=== PATIENT | female | born 1990 | race Caucasian/White ===

== ENCOUNTER 2019-05-23 14:39 | Outpatient (CLI) | payer MEDICAID, SELFPAY ==
--- NOTE | 2019-05-23 | XR_ITS ---
WS: [id number] FACIAL BONES TECHNIQUE: 3 views of the facial bones CLINICAL INFORMATION: JAW PAIN COMPARISON: None. FINDINGS: Normal visualized paranasal sinuses appear well aerated. Normal orbital rims. Mandible appears normal . No visualized fractures. XR/XR facial bones <3V [id number] IMPRESSION: Normal visualized mandible
== END 2019-05-24 11:37 | disposition home or self-care (01) ==
PROVIDERS: Family Provider Family Medicine; PCP Family Medicine; Visit Provider Nurse Practitioner Family
DX: R68.84 Jaw pain (principal)

== ENCOUNTER 2019-06-17 03:21 | Emergency (ER) | payer MEDICAID, SELFPAY ==
--- NOTE | 2019-06-17 03:31 | ED_ITS ---
Entered by Kaya Dowling, acting as scribe for Doug Aivles DO Jun 17, 2019 03:21 HPI - SOB/Dyspnea General: Chief Complaint: Shortness of Breath/Dyspnea Stated Complaint: SOB, MUSCLES TWITCHING Time Seen by Provider: 06/17/19 03:35 Source: patient Mode of arrival: ambulatory Limitations: no limitations History of Present Illness: HPI Narrative: 29 yo f came to the er pov for shortness of breath and twitching. Onset was tonight. Pt states that her feet and her legs started twitching last night. Pt states that she has felt sob the last few days. Pt states that the twitches in her abd as well. MD elicited complaint: shortness of breath Onset (ago): day(s) Timing: intermittent Severity: mild Exacerbating factors: nothing Relieving factors: nothing Associated symptoms: Reports dizziness and orthopnea; Deny abdominal pain, chest pain, fever(s), nausea, palpitations or vomiting Treatment prior to arrival: none Related Data: Home oxygen amount: none Review of Systems Const: Denies: fever Eyes: Denies: change in vision or blurry vision ENMT: Denies: painful swallowing, swelling of lips/tongue, bleeding gums, dental pain, Change in hearing, nose bleeds, post nasal drip or facial/sinus pain Card: Reports: shortness of breath when lying down; Denies: chest pain or palpitations Resp: Reports: shortness of breath; Denies: productive cough, non-productive cough or wheezing GI: Denies: abdominal pain, nausea or vomiting : Denies: painful urination, urinary frequency, urinary urgency or blood in urine Musc: Denies: neck pain or back pain Skin/Breast: Denies: rash, itching or redness Neuro: Reports: dizziness Psych: Denies: anxiety PFSH ED PFSH: Statuses (acute, chronic, etc) shown below reflect problem list status as previously entered and may not be historically accurate Social History Smoking and tobacco status: former smoker Physical Exam Const: GENERAL APPEARANCE: well developed ORIENTATION/CONSCIOUSNESS: Yes oriented to person, Yes oriented to place and Yes oriented to time HENMT: COMMON NORMALS: normocephalic, external ears normal and external nose normal HEAD & SCALP: normocephalic; no scalp tenderness FACE & SINUS: normal facial exam NOSE: external nose normal and no nasal discharge EXTERNAL EAR: Yes external ears normal MOUTH: tongue normal TEETH & GINGIVA: no abnormal tooth and associated gingiva THROAT: posterior oropharynx normal; no peritonsillar mass Eye: COMMON NORMALS: PERRL, EOMs intact bilaterally and conjunctivae normal EYELID: eyelids normal CONJUNCTIVA: Yes conjunctivae normal PUPIL: Yes PERRL Neck/C-Spine: COMMON NORMALS: full ROM GENERAL: No tracheal deviation Chest: COMMONS NORMALS: inspection of chest normal CHEST: No tenderness Resp: COMMON NORMALS: clear to auscultation bilaterally EFFORT & INSPECTIO N: No tachypneic, No respiratory distress, No retractions, No uses accessory muscles and No tracheal deviation AUSCULTATION: clear to auscultation bilaterally, no rhonchi, no wheezes and lung sounds not diminished Cardio: COMMON NORMALS: regular rate and regular rhythm RATE: regular rate RHYTHM: regular rhythm HEART SOUNDS: no murmurs PERIPHERAL PULSES: radial pulses present GI: COMMON NORMALS: soft to palpation INSPECTION: No abdominal distension AUSCULTATION: No hyperactive bowel sounds and No hypoactive bowel sounds PALPATION: Yes soft, No tender, No guarding and No rigid PERCUSSION: no dullness to percussion and no tympanic to percussion Neuro: SENSORIUM/ORIENTATION: Yes oriented to person, Yes oriented to place and Yes oriented to time Psych: COMMON NORMALS: mental status grossly normal Skin: COMMON NORMALS: no rashes or lesions noted GENERAL SKIN EXAM: no rashes or lesions noted Course ED course: 29-year-old female complaining of muscle twitches that worsen does hurt shortness of breath worsen. She is breathing normally. Saturations have been 99 to 100%. She is non-tachycardic. Her laboratory work-up is benign. Suspect hyperventilation with rapid decrease in bicarbonate level to match her respiratory alkalosis. Vital Signs: Vital signs: Vital Signs Temperature 98.1 F 06/17/19 06:16 Pulse Rate 73 06/17/19 06:16 Respiratory Rate 16 06/17/19 06:16 Blood Pressure 122/68 06/17/19 06:16 Pulse Oximetry 97 06/17/19 06:16 MDM - SOB/Dyspnea Lab Data: Labs: Lab Results 06/17/19 06/17/19 06/17/19 Range/Units 05:15 05:15 05:15 WBC 5.6 (4.0-10.0) 10^3/ uL RBC 4.43 (4.1-5.3) 10^6/u L Hgb 13.4 (11.5-15.3) g/dL Hct 39.6 (37.0-47.0) % MCV 89.4 (81-99) fL MCH 30.2 (28.0-34.0) pg MCHC 33.8 (30.0-36.0) g/dL RDW 11.9 L (12.1-15.1) % Plt Count 235 (130-400) 10^3/c mm MPV 10.6 H (7.4-10.4) fL Neut % (Auto) 54.3 % Lymph % (Auto) 32.7 % [place] % (Auto) 8.4 % Eos % (Auto) 3.8 % Baso % (Auto) 0.4 % Neut # (Auto) 3.0 (1.8-7.7) 10^3/u L Lymph # (Auto) 1.8 (0.8-4.8) 10^3/u L [place] # (Auto) 0.5 (0.2-0.9) 10^3/u L Eos # (Auto) 0.2 (0.0-0.8) 10^3/u L Baso # (Auto) 0.0 (0.0-0.1) 10^3/u L Nucleated RBC % (a uto) 0 % Nucleated RBCs # 0.0 /100WBC Sodium 138 (136-145) mmol/L Potassium 3.8 (3.5-5.1) mmol/L Chloride 101 (98-107) mmol/L Carbon Dioxide 28 (22-29) mmol/L Anion Gap 12.8 (5-19) BUN 7 (6-20) mg/dL Creatinine 0.6 (0.5-0.9) mg/dL GFR Calculation 117.4 (90-130) mL/min Glucose 85 (74-109) mg/dL Calculated Osmolal ity 281 L (285-295) mOsm/k g Calcium 10.0 (8.5-10.5) mg/dL HCG, Qual Negative (Negative) Discharge Plan Discharge Patient Disposition: Home, Self-Care Clinical Impression: Hyperventilation syndrome Condition: Stable Discharge Orders: Discharge Order (Routine); Ordered 06/17/19 Ordered By: Doug Aviles Referrals: Lyn Guzman DO [Primary Care Provider] - 1-3 days Discharge Diet: Usual diet Discharge Activity: Increase activity as tolerated Patient Instructions: Hyperventilation (ED) Activity Restrictions/Additional Instructions: Return for chest discomfort, worsening shortness of breath, fever greater than 100, other concerning symptoms. Coding Level of Care Code ED Fuel House Attendant for g Fwd The documentation recorded by the Nitesh price Stephanie Lyn, accurately reflects the service I personally performed and the decisions made by Stefan graff Jeremy John, DO Jun 17, 2019 03:21
[2019-06-17 03:33] VITALS: BP 137/88; PULSE 86; RESP 16; TEMP 37.2; O2SAT 100; BMI 19.2
[2019-06-17 03:36] VITALS: BP 137/88; PULSE 64; RESP 16; O2SAT 97
--- NOTE | 2019-06-17 03:43 | XR_ITS ---
WS: [id number] CHEST XRAY TECHNIQUE: Portable chest. CLINICAL INFORMATION: sob COMPARISON: FINDINGS: Heart: Normal cardiac silhouette. Lungs: Lungs are clear. No consolidation or pleural effusion. Bones: Normal visualized bony structures. XR/XR chest 1V portable [id number] IMPRESSION: Normal chest
--- NOTE | 2019-06-17 03:57 | PC.NURSE ---
Introduced self to patient and initiated vital signs. Pt is A&O x 4 and agreeable. Pt states that the reason for the ER visit today is due to some shortness of breath (started yesterday) and leg twitching which presented a few months ago. = Reassured patient of needs and will continue to monitor. Awaiting provider at bedside.
[2019-06-17 05:41] LABS: Basophils % 0.4 %; Eosinophils # 0.2 10^3/uL (0.0-0.8); Eosinophils % 3.8 %; Hematocrit 39.6 % (37.0-47.0); Hemoglobin 13.4 g/dL (11.5-15.3); Lymphocytes # 1.8 10^3/uL (0.8-4.8); Lymphocytes % 32.7 %; Mean Corpuscular HGB Conc 33.8 g/dL (30.0-36.0); Mean Corpuscular Hemoglobin 30.2 pg (28.0-34.0); Mean Corpuscular Volume 89.4 fL (81-99); Mean Platelet Volume 10.6 fL (7.4-10.4); Monocytes # 0.5 10^3/uL (0.2-0.9); Monocytes % 8.4 %; Neutrophils % 54.3 %; Nucleated Red Blood Cells % 0 %; Platelet Count 235 10^3/cmm (130-400); Red Blood Count 4.43 10^6/uL (4.1-5.3); Red Cell Distribution Width 11.9 % (12.1-15.1); White Blood Count 5.6 10^3/uL (4.0-10.0)
[2019-06-17 05:52] LABS: HCG, Serum Qual Negative (Negative)
[2019-06-17 05:54] LABS: Anion Gap 12.8 (5-19); Blood Urea Nitrogen 7 mg/dL (6-20); Carbon Dioxide 28 mmol/L (22-29); Chloride 101 mmol/L (98-107); Glomerular Filtration Rate 117.4 mL/min (90-130); Glucose 85 mg/dL (74-109); Osmolality Calculated 281 mOsm/kg (285-295); Potassium 3.8 mmol/L (3.5-5.1); Sodium 138 mmol/L (136-145)
[2019-06-17] MEDS: LORazepam 1 mg Tablet PO (06:10)
[2019-06-17 06:16] VITALS: BP 122/68; PULSE 73; RESP 16; TEMP 36.7; O2SAT 97
== END 2019-06-17 06:44 | disposition home or self-care (01) ==
PROVIDERS: Emergency Provider Emergency Medicine; Family Provider Family Medicine; PCP Family Medicine
DX: F45.8 Other somatoform disorders (principal); Z87.891 Personal history of nicotine dependence
CPT/HCPCS: 71045; 80048; 84703; 85025; 99281

== ENCOUNTER 2019-09-13 16:08 | Outpatient (CLI) | payer MEDICAID, SELFPAY ==
--- NOTE | 2019-09-13 | XR_ITS ---
WS: [id number] HIP RIGHT TECHNIQUE: 1 view of the right hip CLINICAL INFORMATION: ACUTE RT HIP PAIN COMPARISON: None. FINDINGS: Mild joint space narrowing right hip. Mild acetabular spurring. Right femoral neck is normal in appea justin. Normal greater and lesser trochanter. No evidence of acute fracture dislocation. Pelvic phlebo liths. XR/XR hip RT 1V wo/w pel [id number] IMPRESSION: Mild joint space narrowing. No acute fractures. Mild acetabular spurring.
--- NOTE | 2019-09-13 16:22 | XR_ITS ---
WS: [id number] CERVICAL SPINE TECHNIQUE: 3 views of the cervical spine CLINICAL INFORMATION: CHRONIC NECK PAIN COMPARISON: None. FINDINGS: Mild cervical curve convex left. Normal C1-C2 articulation. Normal prevertebral soft tissues. Disc sp osorio heights and vertebral body heights are well-maintained. Normal dens. XR/XR cervical spine 3V* [id number] IMPRESSION: Mild cervical curve convex left. Cervical spine otherwise unremarkable.
--- NOTE | 2019-09-13 16:22 | XR_ITS ---
WS: [id number] LUMBAR SPINE TECHNIQUE: 3 views of the lumbar spine CLINICAL INFORMATION: CHRONIC BILATERAL LOW BACK PAIN W/O SCIATICA COMPARISON: None. FINDINGS: Mild to moderate lumbar curve convex left. Five [id number] lumbar vertebral bodies. Disc space heights are well preserved. No compression f ractures. No spondylolisthesis. Visualized sacroiliac joints are normal. Normal visualized soft tissu es. Partially visualized bowel gas pattern is normal. XR/XR lumbar spine 2-3V* [id number] IMPRESSION: 1. Mild to moderate lumbar curve convex left. 2. No acute compression fractures. 3. Disc space heights and vertebral body heights are well-maintained. 4. Mild facet arthropathy lower lumbar spine.
== END 2019-09-13 16:09 | disposition home or self-care (01) ==
LOC: RAD 16:09
PROVIDERS: Family Provider Family Medicine; PCP Family Medicine; Visit Provider Registered Nurse
DX: M54.2 Cervicalgia (principal); M25.551 Pain in right hip; M54.5 Low back pain; G89.29 Other chronic pain; M47.816 Spondylosis without myelopathy or radiculopathy, lumbar region
CPT/HCPCS: 72040; 72100; 73501

== ENCOUNTER 2019-09-15 23:16 | Emergency (ER) | payer MEDICAID, SELFPAY ==
[2019-09-15 23:31] VITALS: BP 124/91; PULSE 99; RESP 16; TEMP 36.9; O2SAT 96; BMI 19.2
--- NOTE | 2019-09-15 23:44 | W.ED.HA ---
HPI - Headache General: Chief Complaint: Headache Stated Complaint: CONTE X 2 MONTHS Time Seen by Provider: 09/15/19 23:42 Source: patient Mode of arrival: ambulatory Limitations: no limitations History of Present Illness: HPI Narrative: 29-year-old female comes in today with complaints of headache that feels like a band around the top of her head. Patient states that for the last 2 months she has had this headache and it just has not seemed to resolve. Patient felt that she could not wait for following up with her primary care at this time due to the pain. Patient does take control routinely. Patient denies any nausea or vomiting with the headache. Patient does have some mild neck discomfort with a headache. Review of Systems General: Reports: 10 or more systems reviewed and unremarkable except in HPI and below Neuro: Reports: headache PFSH ED PFSH: Social History Smoking and tobacco status: former smoker Female Reproductive History: Date of last menstrual period: 09/08/19 Physical Exam Const: COMMON NORMALS: no apparent distress and oriented x3 GENERAL APPEARANCE: cooperative HENMT: COMMON NORMALS: normocephalic, TM's normal bilaterally and external nose normal HEAD & SCALP: normal to inspection and normocephalic NOSE: external nose normal TYMPANIC MEMBRANE: TM's normal bilaterally MOUTH: oral and palatal mucosa normal THROAT: posterior oropharynx normal Eye: GENERAL EYE: normal appearance of both eyes Neck/C-Spine: COMMON NORMALS: full ROM Lymph: LYMPHATIC: no lymphadenopathy noted Chest: COMMONS NORMALS: inspection of chest normal Resp: COMMON NORMALS: normal respiratory effort EFFORT & INSPECTION: Yes able to speak in complete sentences Cardio: COMMON NORMALS: regular rate and regular rhythm RATE: regular rate RHYTHM: regular rhythm GI: COMMON NORMALS: non-tender : COMMON NORMALS: Yes no CVA tenderness BLADDER/KIDNEY EXAM: Yes no CVA tenderness Back/Pelvis: COMMON NORMALS: no CVA tenderness and thoracic and lumbar spine normal to inspection Extremity: COMMON NORMALS: normal to inspection Neuro: COMMON NORMALS: oriented x3 and moves all extremities Psych: COMMON NORMALS: mental status grossly normal and cooperative Skin: COMMON NORMALS: no rashes or lesions noted GENERAL SKIN EXAM: no rashes or lesions noted Course Vital Signs: Vital signs: Vital Signs Temperature 98.4 F 09/15/19 23:31 Pulse Rate 78 09/16/19 00:42 Respiratory Rate 16 09/16/19 00:42 Blood Pressure 146/93 09/16/19 00:42 Pulse Oximetry 95 09/16/19 00:42 MDM - Headache MDM Narrative: Medical decision making narrative: Patient comes in today for persistent headache for last 2 months. Patient reports no chronic history of headaches prior to this episode. Exam notes respirations are even lungs are clear to auscultation. Vital signs are normal. Differential diagnosis includes intracranial process, migraine headaches, tension headaches, sinusitis. Patient was given 2 Tylenol for complaints of pain. Patient had a CT scan done which showed no intracranial masses but did show a frontal sinusitis. Reviewed exam with patient recommended treatment for a sinus infection with doxycycline, Flonase and Mucinex D. Encourage plenty of fluids and follow-up with primary care for persistent symptoms with possible referral to neurology for further evaluation. Patient reports understanding agreed to plan. Discharge Plan Discharge Patient Disposition: Home, Self-Care Clinical Impression: Sinusitis Qualifiers: Sinusitis location: frontal Chronicity: subacute Qualified Code(s): J01.10 - Acute frontal sinusitis, unspecified Headache Qualifiers: Headache type: unspecified Headache chronicity pattern: chronic headache Intractability: not intractable Qualified Code(s): R51 - Headache Condition: Stable Prescriptions: New Flonase Allergy Relief 50 mcg/actuation spray,suspension 1 spray INTRANASAL BID Qty: 15.8 RF: 0 doxycycline hyclate 100 mg capsule 100 mg PO BID 10 Days Qty: 20 RF: 0 Mucinex D 60-600 mg tablet extended release 12 hr 1 tab PO BID PRN (Reason: sinus symptoms) Qty: 20 RF: 0 No Action alprazolam 0.25 mg tablet RF: 0 Discharge Orders: Discharge Order (Routine); Ordered 09/16/19 Ordered By: Jose Raul Sanchez Referrals: Lyn Guzman DO [Primary Care Provider] - Discharge Diet: Usual diet Discharge Activity: Increase activity as tolerated Patient Instructions: Sinusitis (ED) Activity Restrictions/Additional Instructions: Drink plenty of fluids. Take Tylenol and ibuprofen as needed for pain. Use medications as directed. Follow-up with primary care in 1 to 2 weeks for persistent headache. Return to the ER for high fever or worsening symptoms. Coding Level of Care Code ED Multiple Cut Off Saw Operator for Kwame Fwd Exam Comprehensive
--- NOTE | 2019-09-15 23:50 | CTR_ITS ---
PROCEDURE INFORMATION: Exam: CT Head Without Contrast Exam date and time: 09/15/2019 11:53 PM Age: 29 years old Clinical indication: Pain; Headache not specified; Additional info: Persistent headache x 2months TECHNIQUE: Imaging protocol: Computed tomography of the head without contrast. Total DLP: 1440.19 mGy-cm Radiation optimization: All CT scans at this facility use at least one of these dose optimization techniques: automated exposure control; mA and/or kV adjustment per patient size (includes targeted exams where dose is matched to clinical indication); or iterative reconstruction. COMPARISON: No relevant prior studies available. FINDINGS: Brain: No acute intracranial hemorrhage or mass effect. No definite acute infarct by CT. Ventricles: Ventricle size is normal for age. Bones/joints: No definite acute skull fracture. Sinuses: Mild mucosal thickening in the frontal sinuses. Included paranasal sinuses otherwise appear essentially clear. Mastoid air cells: No significant acute finding. CT/CT head wo con* [id number] IMPRESSION: 1. No acute intracranial hemorrhage or mass effect. 2. Paranasal sinus findings as discussed above. 3. Other findings discussed above. Radiation Dose CTDIVOL = (mGy): DLP = 1440.19 (mGy-cm)
--- NOTE | 2019-09-15 23:55 | PC.NURSE ---
Patient states she has had a headache for the last two months that will not go away. Patient states she is supposed to be scheduled for an MRI.
[2019-09-16] MEDS: acetaminophen 500 mg Tablet 1000 MG PO (00:03)
[2019-09-16 00:04] VITALS: BP 129/93; PULSE 100; RESP 16; O2SAT 99
--- NOTE | 2019-09-16 00:34 | PC.NURSE ---
patient to CT
[2019-09-16 00:42] VITALS: BP 146/93; PULSE 78; RESP 16; O2SAT 95
[2019-09-16] MEDS: doxycycline 100 mg Tablet PO (01:13)
[2019-09-16 01:14] VITALS: BP 146/93; PULSE 76; RESP 16; O2SAT 95
== END 2019-09-16 01:16 | disposition home or self-care (01) ==
PROVIDERS: Emergency Provider Nurse Practitioner Family; Family Provider Family Medicine; PCP Family Medicine
DX: R51 Headache (principal); J01.10 Acute frontal sinusitis, unspecified; Z87.891 Personal history of nicotine dependence
CPT/HCPCS: 12345; 70450; 99281; 99283

== ENCOUNTER 2019-11-11 07:52 | Emergency (ER) | payer MEDICAID, SELFPAY ==
[2019-11-11 07:57] VITALS: BP 121/95; PULSE 120; RESP 17; TEMP 36.3; O2SAT 100; BMI 19.0
--- NOTE | 2019-11-11 07:58 | ED_ITS ---
HPI - Chest Pain General: Chief Complaint: Chest Pain Stated Complaint: CP Time Seen by Provider: 11/11/19 07:58 Source: patient Mode of arrival: ambulatory Limitations: no limitations History of Present Illness: HPI narrative: 29-year-old female comes in today for complaints of central chest discomfort starting last night. Patient at first thought it may be due to some acid reflux because belching seemed to help a little. But as the night went on it seemed like nothing she did was improving the discomfort. Patient taking her Protonix this morning and decided that she probably should have this evaluated further due to the persistence of discomfort. Patient reports that she has increased discomfort with deep breath. Patient appears well. Patient appears in mild pain. MD complaint: chest pain Review of Systems General: Reports: 10 or more systems reviewed and unremarkable except in HPI and below Card: Reports: chest pain [facility] ED 2 PFSH: Social History Smoking and tobacco status: former smoker Female Reproductive History: Date of last menstrual period: 09/08/19 Physical Exam Const: COMMON NORMALS: no acute distress and patient oriented x3 GENERAL APPEARANCE: cooperative HENMT: COMMON NORMALS: normocephalic and Normal external nose present HEAD & SCALP: normal to inspection and normocephalic NOSE: Normal external nose present MOUTH: Normal oral and palatal mucosa present THROAT: posterior oropharynx normal Eye: GENERAL EYE: appearance normal, both eyes and all related structures Neck/C-Spine: COMMON NORMALS: full ROM Lymph: LYMPHATIC: no lymphadenopathy noted Chest: COMMONS NORMALS: normal inspection of the chest Resp: COMMON NORMALS: normal respiratory effort EFFORT & INSPECTION: Yes able to speak in complete sentences Cardio: COMMON NORMALS: regular rate and regular rhythm RATE: regular rate RHYTHM: regular rhythm GI: COMMON NORMALS: Soft to palpation PALPATION: Yes Soft to palpation and Yes Tenderness to palpation present (GI) (mid epigastric mild) : COMMON NORMALS: Yes no CVA tenderness BLADDER/KIDNEY EXAM: Yes no CVA tenderness Back/Pelvis: COMMON NORMALS: no CVA tenderness and thoracic and lumbar spine normal to inspection Extremity: COMMON NORMALS: normal to inspection Neuro: COMMON NORMALS: patient oriented x3 and moves all extremities Psych: COMMON NORMALS: mental status grossly normal and cooperative Skin: COMMON NORMALS: no rashes or lesions noted GENERAL SKIN EXAM: no rashes or lesions noted Course Vital Signs: Vital signs: Vital Signs Temperature 97.4 F L 11/11/19 07:57 Pulse Rate 120 H 11/11/19 07:57 Respiratory Rate 17 11/11/19 07:57 Blood Pressure 121/95 11/11/19 07:57 Pulse Oximetry 100 11/11/19 07:57 MDM - Chest Pain MDM Narrative: Medical decision making narrative: Patient came in today for evaluation regarding chest discomfort. Patient reports significant burning and discomfort in the chest last night she thought it was might be her reflux and had taken her Protonix this morning but felt that she might need to have this further evaluated. Exam notes respirations were even lungs were clear to a uscultation. Some mild tenderness was noted in the midepigastrium. Vital signs were normal except for some mild elevation in pulse rate at 120. Differential diagnosis includes ACS, PE, peptic ulcer disease, GERD, gallbladder disease, pancreatitis. Laboratory values noted a normal lipase and liver enzymes, mild elevation white count at 13,000, negative hCG, normal troponin level, negative d-dimer. Chest x-ray was normal. Reviewed exam with patient with recommendations for treatment to continue Protonix and then follow-up with primary care. Patient had relief of pain prior to discharge which may be contributed to her acetaminophen that she was given and/or the Protonix she had taken at home. Patient reported understanding of care plan and need for follow- up. Lab Data: Labs: Lab Results 11/11/19 11/11/19 11/11/19 Range/Units 08:06 08:06 08:06 WBC 13.5 H (4.0-10.0) 10^3/ uL RBC 4.53 (4.1-5.3) 10^6/u L Hgb 14.1 (11.5-15.3) g/dL Hct 42.5 (37.0-47.0) % MCV 93.8 (81-99) fL MCH 31.1 (28.0-34.0) pg MCHC 33.2 (30.0-36.0) g/dL RDW 11.9 L (12.1-15.1) % Plt Count 197 (130-400) 10^3/c mm MPV 10.6 H (7.4-10.4) fL Neut % (Auto) 84.9 % Lymph % (Auto) 11.9 % [place] % (Auto) 1.3 % Eos % (Auto) 1.1 % Baso % (Auto) 0.4 % Neut # (Auto) 11.5 H (1.8-7.7) 10^3/u L Lymph # (Auto) 1.6 (0.8-4.8) 10^3/u L [place] # (Auto) 0.2 (0.2-0.9) 10^3/u L Eos # (Auto) 0.2 (0.0-0.8) 10^3/u L Baso # (Auto) 0.1 (0.0-0.1) 10^3/u L Nucleated RBC % (a uto) 0 % Nucleated RBCs # 0.0 /100WBC D-Dimer <= 0.27 (0-0.59) ug/mIFE U Sodium 141 (136-145) mmol/L Potassium 3.5 (3.5-5.1) mmol/L Chloride 105 (98-107) mmol/L Carbon Dioxide 24 (22-29) mmol/L Anion Gap 15.5 (5-19) BUN 11 (6-20) mg/dL Creatinine 0.6 (0.5-0.9) mg/dL GFR Calculation 117.4 (90-130) mL/min Glucose 108 (65-115) mg/dL Calculated Osmolal ity 289 (285-295) mOsm/k g Calcium 9.2 (8.5-10.5) mg/dL Total Bilirubin 0.5 (0.15-1.2) mg/dL AST 7 (0-32) U/L ALT 8 (0-33) U/L Alkaline Phosphata se 48 (35-105) IU/L Troponin T Baselin e (0-10) ng/L Total Protein 6.7 (6.6-8.7) g/dL Albumin 4.2 (3.5-5.2) g/dL Globulin 2.5 (1.3-4.6) g/dL Lipase 35 (13-60) U/L HCG, Qual (Negative) 11/11/19 11/11/19 Range/Units 08:06 08:06 WBC (4.0-10.0) 10^3/ uL RBC (4.1-5.3) 10^6/u L Hgb (11.5-15.3) g/dL Hct (37.0-47.0) % MCV (81-99) fL MCH (28.0-34.0) pg MCHC (30.0-36.0) g/dL RDW (12.1-15.1) % Plt Count (130-400) 10^3/c mm MPV (7.4-10.4) fL Neut % (Auto) % Lymph % (Auto) % [place] % (Auto) % Eos % (Auto) % Baso % (Auto) % Neut # (Auto) (1.8-7.7) 10^3/u L Lymph # (Auto) (0.8-4.8) 10^3/u L [place] # (Auto) (0.2-0.9) 10^3/u L Eos # (Auto) (0.0-0.8) 10^3/u L Baso # (Auto) (0.0-0.1) 10^3/u L Nucleated RBC % (a uto) % Nucleated RBCs # /100WBC D-Dimer (0-0.59) ug/mIFE U Sodium (136-145) mmol/L Potassium (3.5-5.1) mmol/L Chloride (98-107) mmol/L Carbon Dioxide (22-29) mmol/L Anion Gap (5-19) BUN (6-20) mg/dL Creatinine (0.5-0.9) mg/dL GFR Calculation (90-130) mL/min Glucose (65-115) mg/dL Calculated Osmolal ity (285-295) mOsm/k g Calcium (8.5-10.5) mg/dL Total Bilirubin (0.15-1.2) mg/dL AST (0-32) U/L ALT (0-33) U/L Alkaline Phosphata se (35-105) IU/L Troponin T Baselin e 6 (0-10) ng/L Total Protein (6.6-8.7) g/dL Albumin (3.5-5.2) g/dL Globulin (1.3-4.6) g/dL Lipase (13-60) U/L HCG, Qual Negative (Negative) EKG Data^: EKG 1: Attestation: I personally reviewed and interpreted this EKG as follows: (0820, NSR regular rate 86 bpm, no ectopy or ST elevation.) Discharge Plan Discharge Patient Disposition: Home, Self-Care Clinical Impression: Chest pain due to GERD Condition: Stable Prescriptions: No Action alprazolam 0.25 mg tablet RF: 0 Flonase Allergy Relief 50 mcg/actuation spray,suspension 1 spray INTRANASAL BID Qty: 15.8 RF: 0 Mucinex D 60-600 mg tablet extended release 12 hr 1 tab PO BID PRN (Reason: sinus symptoms) Qty: 20 RF: 0 Discharge Orders: Discharge Order (Routine); Ordered 11/11/19 Ordered By: Jose Raul Sanchez Referrals: Lyn Guzman DO [Primary Care Provider] - Discharge Diet: Usual diet Discharge Activity: Increase activity as tolerated Patient Instructions: Gastroesophageal Reflux Disease (ED) Activity Restrictions/Additional Instructions: Home and rest. Drink plenty of water with medications. Avoid eating 2 hours before bedtime. Continue with Protonix for the next 2 weeks, and then as needed. Follow-up with primary care in 1 week. Return to the ER for worsening symptoms or new concerns. Coding Level of Care Code ED Pharmacy Affairs Assistant for 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
--- NOTE | 2019-11-11 08:02 | XR_ITS ---
WS: [id number] PORTABLE CHEST HISTORY: cp COMPARISON: 06/17/2019 Lungs are clear and well expanded. No pleural effusion or pneumothorax. Cardiac size: Normal. Mediastinum/Aorta: Normal mediastinum. No osseous abnormality seen. XR/XR chest 1V portable [id number] IMPRESSION: Unremarkable portable chest.
--- NOTE | 2019-11-11 08:02 | ECG_ITS ---
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 Measurements Intervals [place] Rate: 86 P: 83 NV: 162 QRS: 84 QRSD: 98 T: 66 QT: 370 QTc: 445 Interpretive Statements SINUS RHYTHM Compared to ECG 12/05/2018 20:56:21 No significant changes Electronically Signed On 11-11-2019 18:29:23 CDT by Karli Mckinney M.D. [id number]
[2019-11-11 08:12] LABS: Basophils # 0.1 10^3/uL (0.0-0.1); Basophils % 0.4 %; Eosinophils # 0.2 10^3/uL (0.0-0.8); Eosinophils % 1.1 %; Hematocrit 42.5 % (37.0-47.0); Hemoglobin 14.1 g/dL (11.5-15.3); Lymphocytes # 1.6 10^3/uL (0.8-4.8); Lymphocytes % 11.9 %; Mean Corpuscular HGB Conc 33.2 g/dL (30.0-36.0); Mean Corpuscular Hemoglobin 31.1 pg (28.0-34.0); Mean Corpuscular Volume 93.8 fL (81-99); Mean Platelet Volume 10.6 fL (7.4-10.4); Monocytes # 0.2 10^3/uL (0.2-0.9); Monocytes % 1.3 %; Neutrophils # 11.5 10^3/uL (1.8-7.7); Neutrophils % 84.9 %; Nucleated Red Blood Cells % 0 %; Platelet Count 197 10^3/cmm (130-400); Red Blood Count 4.53 10^6/uL (4.1-5.3); Red Cell Distribution Width 11.9 % (12.1-15.1); White Blood Count 13.5 10^3/uL (4.0-10.0)
[2019-11-11] MEDS: acetaminophen 500 mg Tablet 1000 MG PO (08:13)
[2019-11-11 08:36] LABS: Alanine Aminotransferase 8 U/L (0-33); Albumin Level 4.2 g/dL (3.5-5.2); Alkaline Phosphatase 48 IU/L (35-105); Anion Gap 15.5 (5-19); Aspartate Amino Transferase 7 U/L (0-32); Blood Urea Nitrogen 11 mg/dL (6-20); Calcium 9.2 mg/dL (8.5-10.5); Carbon Dioxide 24 mmol/L (22-29); Chloride 105 mmol/L (98-107); Globulin 2.5 g/dL (1.3-4.6); Glomerular Filtration Rate 117.4 mL/min (90-130); Glucose 108 mg/dL (65-115); Lipase 35 U/L (13-60); Osmolality Calculated 289 mOsm/kg (285-295); Potassium 3.5 mmol/L (3.5-5.1); Sodium 141 mmol/L (136-145); Total Bilirubin 0.5 mg/dL (0.15-1.2); Total Protein 6.7 g/dL (6.6-8.7)
[2019-11-11 08:37] LABS: HCG, Serum Qual Negative (Negative)
[2019-11-11 08:38] LABS: Troponin(5th) Baseline 6 ng/L (0-10)
[2019-11-11 08:52] LABS: D Dimer <= 0.27 ug/mIFEU (0-0.59)
[2019-11-11 09:05] VITALS: BP 113/65; PULSE 76; RESP 16; O2SAT 99
== END 2019-11-11 09:06 | disposition home or self-care (01) ==
PROVIDERS: Emergency Provider Nurse Practitioner Family; Family Provider Family Medicine; PCP Family Medicine
DX: K21.9 Gastro-esophageal reflux disease without esophagitis (principal); Z87.891 Personal history of nicotine dependence
CPT/HCPCS: 12345; 71045; 80053; 83690; 84484; 84703; 85025; 85378; 93005; 99282; 99283

== ENCOUNTER 2020-01-15 10:28 | Outpatient (CLI) | payer MEDICAID, SELFPAY ==
--- NOTE | 2020-01-15 10:30 | MM_ITS ---
WS: [id number] DIAGNOSTIC BILATERAL DIGITAL MAMMOGRAM WITH CAD RIGHT breast ultrasound, limited HISTORY: Palpable mass RIGHT breast. COMPARISON: None available. TECHNIQUE: Bilateral craniocaudad, mediolateral oblique, and mediolateral views are submitted. Spot c ompression RIGHT CC. Computer aided detection utilized. Breast composition: The breasts are extremely dense, which lowers the sensitivity of mammography. Pal pable marker is placed along the 3:00 axis posteriorly. There is no underlying mass or distortion. LE FT breast is negative. RIGHT breast ultrasound, limited. Ultrasound is directed to the area the palpable abnormality which is 1:00. There is no underlying ma ss. Dense fibroglandular tissue. MM/[place] [id number] IMPRESSION: BI-RADS: 1-Negative FOLLOW UP: Age 39
--- NOTE | 2020-01-15 11:00 | US_ITS ---
WS: [id number] DIAGNOSTIC BILATERAL DIGITAL MAMMOGRAM WITH CAD RIGHT breast ultrasound, limited HISTORY: Palpable mass RIGHT breast. COMPARISON: None available. TECHNIQUE: Bilateral craniocaudad, mediolateral oblique, and mediolateral views are submitted. Spot c ompression RIGHT CC. Computer aided detection utilized. Breast composition: The breasts are extremely dense, which lowers the sensitivity of mammography. Pal pable marker is placed along the 3:00 axis posteriorly. There is no underlying mass or distortion. LE FT breast is negative. RIGHT breast ultrasound, limited. Ultrasound is directed to the area the palpable abnormality which is 1:00. There is no underlying ma ss. Dense fibroglandular tissue. US/US breast RT limited* [id number] IMPRESSION: BI-RADS: 1-Negative FOLLOW UP: Age 39
== END 2020-01-15 10:29 | disposition home or self-care (01) ==
LOC: RADSHAW 10:32
PROVIDERS: PCP Family Medicine; Visit Provider Nurse Practitioner Women's Health
DX: N63.10 Unspecified lump in the right breast, unspecified quadrant (principal)
CPT/HCPCS: 76642; 77066

== ENCOUNTER 2020-02-26 13:35 | Outpatient (CLI) | payer MEDICAID, SELFPAY ==
--- NOTE | 2020-02-26 13:43 | US_ITS ---
WS: [id number] PELVIC ULTRASOUND REASON FOR VISIT: HX OF OVARIAN CYST/RLQ ABD PAIN TECHNIQUE: Grayscale and Doppler transabdominal ultrasound of the pelvis. FINDINGS: No free pelvic fluid. Uterus measures 6.93 cm x 4.9 cm x 4.7 cm. The endometrium was 3 to 4 mm in thickness. The uterus was markedly anteflexed. Uterine echotexture was markedly heterogeneous. Right ovary: measures 3.4 cm x 2.9 cm x 2.5 cm. 2.37 x 2.76 sonolucent mass within the right ovary. G ood through transmission and backwall enhancement. Left ovary: measures 1.7 cm x 1.2 cm x 1.3 cm. No other significant abnormality. US/US pelvic complete* [id number] IMPRESSION: Right ovarian cyst.
== END 2020-02-26 13:36 | disposition home or self-care (01) ==
PROVIDERS: PCP Family Medicine; Visit Provider Registered Nurse
DX: Z87.42 Personal history of other diseases of the female genital tract (principal); R10.31 Right lower quadrant pain; N83.201 Unspecified ovarian cyst, right side
CPT/HCPCS: 76856

== ENCOUNTER → 2020-04-09 17:10 | Outpatient (BNVA) | payer MEDICAID, SELFPAY | PROVIDERS: PCP Family Medicine; Visit Provider Nurse Practitioner Family | DX: Z20.828 Contact with and (suspected) exposure to other viral communicable diseases (principal); J06.9 Acute upper respiratory infection, unspecified | CPT/HCPCS: 87635 ==

== ENCOUNTER → 2020-07-31 10:28 | Outpatient (BNVA) | payer MEDICAID, SELFPAY | PROVIDERS: PCP Family Medicine; Visit Provider Nurse Practitioner Women's Health | DX: R35.0 Frequency of micturition (principal); Z11.3 Encounter for screening for infections with a predominantly sexual mode of transmission; N76.0 Acute vaginitis; N89.8 Other specified noninflammatory disorders of vagina; Z01.419 Encounter for gynecological examination (general) (routine) without abnormal findings; Z30.41 Encounter for surveillance of contraceptive pills | CPT/HCPCS: 81000; 87491; 87591; 87661 ==

== ENCOUNTER → 2020-08-17 14:16 | Outpatient (BNVA) | payer MEDICAID, SELFPAY | PROVIDERS: PCP Family Medicine; Visit Provider Podiatrist Foot & Ankle Surgery | DX: M25.571 Pain in right ankle and joints of right foot (principal); M20.11 Hallux valgus (acquired), right foot | CPT/HCPCS: 73630 ==

== ENCOUNTER 2020-09-10 21:15 | Emergency (ER) | payer MEDICAID, SELFPAY ==
--- NOTE | 2020-09-10 21:21 | XR_ITS ---
WS: [id number] AP and lateral soft tissue neck, 09/10/2020 Clinical Data: foreign body Comparison: Cervical spine, 09/13/2019. Findings: The oral pharynx, pharynx and hypopharynx are normal. The trachea shows no abnormalities. There is no prevertebral soft tissue swelling. The cervical spine is normal. No radiopaque foreign body is noted . The lung apices are unremarkable. XR/XR soft tissue neck [id number] Impression: Negative AP and lateral soft tissue view of the neck.
--- NOTE | 2020-09-10 21:26 | ED_ITS ---
HPI - General Adult General: Chief complaint: Airway/Esophagus Foreign Body Stated complaint: CHOKED Time Seen by Provider: 09/10/20 21:16 Source: patient and EMS Mode of arrival: EMS Limitations: no limitations History of Present Illness: HPI narrative: 30-year-old female states she was eating chips roughly 30 minutes ago. States she had a chicken stuck and she was choking. States she had a coughing episode and felt like she would not go down. States that she felt like she had cough something up and now is able to swallow without any difficulty. He states she does feel like she has a scratch in her esophagus and some pain with swallowing but no difficulty swallowing. Denies any dyspnea. Associated symptoms: Deny chest pain, dyspnea, headache(s), nausea, rash or vomiting Review of Systems Const: Denies: fever(s), chills, body aches or change in appetite Eyes: Denies: blurry vision or eye discomfort ENMT: Reports: throat pain; Denies: dental pain Card: Denies: chest pain Resp: Denies: dyspnea GI: Denies: abdominal pain, nausea, vomiting or diarrhea : Denies: dysuria Musc: Denies: neck pain or back pain Skin/Breast: Denies: rash Neuro: Denies: headache(s) Psych: Denies: depression Michele/Lymph: Denies: easy bruising All/Imm: Denies: urticaria PFSH ED PFSH: Medical History Anxiety with depression Generalized abdominal pain No pertinent past medical history neghx: htn,dm,thyroid,dvt/pe PCP: Dr. Alba Surgical History H/O LEEP x2 at ages 15 and 16 years old Family History Grandmother Breast cancer Maternal grandmother--dx'd in her 60s Ovarian cancer Maternal grandmother---dx age unknown Son Diabetes Type 1 Family history of thyroid problem Mother Hypertension Hyperlipidemia Heart disease Father Family history of thyroid problem Denies family history of Colon cancer Uterine cancer Stroke Female Reproductive History: Date of last menstrual period: 09/08/19 Physical Exam Const: COMMON NORMALS: no acute distress, patient oriented x3 and healthy appearing HENMT: COMMON NORMALS: normocephalic and atraumatic HEAD & SCALP: normoce phalic and atraumatic Eye: COMMON NORMALS: Equal, round and reactive pupils present and EOMs intact bilaterally PUPIL: Yes Equal, round and reactive pupils present Neck/C-Spine: COMMON NORMALS: full ROM and supple Chest: COMMONS NORMALS: normal inspection of the chest and normal palpation of entire chest wall Resp: COMMON NORMALS: normal respiratory effort, No retractions, No use of accessory muscles and clear to auscultation bilaterally AUSCULTATION: clear to auscultation bilaterally Cardio: COMMON NORMALS: regular rate, regular rhythm and No murmurs present (Cardio) RATE: regular rate RHYTHM: regular rhythm GI: COMMON NORMALS: Normal to inspection, nondistended, normoactive bowel sounds present, Soft to palpation, non-tender and no masses PALPATION: Yes Soft to palpation Extremity: COMMON NORMALS: normal to inspection and full ROM Neuro: COMMON NORMALS: patient oriented x3, moves all extremities and no focal motor deficits Psych: COMMON NORMALS: mental status grossly normal, Normal thought process present and cooperative THOUGHT PROCESS: Normal thought process present Skin: COMMON NORMALS: no rashes or lesions noted and no wounds GENERAL SKIN EXAM: no rashes or lesions noted MDM - General Adult MDM Narrative: Medical decision making narrative: Patient presents here with foreign body in esophagus. This is since dislodged. She does have some slight pain likely from her esophagus being scratched by a chip. Patient is well- appearing here and able to swallow and has no shortness of breath. She has no signs of aspiration. She is stable for discharge and return if worsening. Imaging Data^: X-ray soft tissue neck: Attestation: I personally reviewed and interpreted this imaging study as follows: My impression: No acute normality Discharge Plan Discharge Patient Disposition: Home Clinical Impression: Choking episode Condition: Stable Prescriptions: No Action pantoprazole [Protonix] 20 mg tablet,delayed release (DR/EC) 20 mg PO DAILY RF: 0 multivitamin Tablet 1 tab PO DAILY RF: 0 norgestimate-ethinyl estradiol [Ortho Tri-Cyclen (28)] 0.18/0.215/0.25 mg-35 mcg (28) tablet 1 tab PO DAILY Qty: 84 RF: 3 alprazolam 0.25 mg tablet RF: 0 Discharge Orders: Discharge ED (Routine); Ordered 09/10/20 Ordered By: Darnell Oliva Referrals: Lyn Guzman DO [Primary Care Provider] - 1-3 days Discharge Diet: Advance as tolerated Discharge Activity: Resume usual activity Patient Instructions: Choking Coding Level of Care Code ED 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
[2020-09-10 21:40] VITALS: BP 137/84; PULSE 104; RESP 15; TEMP 36.7; O2SAT 100; BMI 19.2
[2020-09-10 21:55] VITALS: BP 137/84; PULSE 102; RESP 15; TEMP 36.7; O2SAT 97
== END 2020-09-10 21:57 | disposition home or self-care (01) ==
LOC: ER 21:40
PROVIDERS: Emergency Provider Emergency Medicine; PCP Family Medicine
DX: T17.928A Food in respiratory tract, part unspecified causing other injury, initial encounter (principal); X58.XXXA Exposure to other specified factors, initial encounter
CPT/HCPCS: 70360; 99282

== ENCOUNTER → 2020-11-30 14:27 | Outpatient (BNVA) | payer OTHER, MEDICAID, SELFPAY | PROVIDERS: PCP Family Medicine; Visit Provider Psychiatry & Neurology Psychiatry | DX: F33.1 Major depressive disorder, recurrent, moderate (principal); F41.1 Generalized anxiety disorder; F43.9 Reaction to severe stress, unspecified | CPT/HCPCS: 99204 ==

== ENCOUNTER → 2020-12-11 14:45 | Outpatient (BNVA) | payer OTHER, SELFPAY | PROVIDERS: PCP Family Medicine; Visit Provider Counselor Professional | DX: F43.0 Acute stress reaction (principal); F41.1 Generalized anxiety disorder; F41.0 Panic disorder [episodic paroxysmal anxiety]; Z63.0 Problems in relationship with spouse or partner | CPT/HCPCS: 90834 ==

== ENCOUNTER → 2021-02-09 09:17 | Outpatient (BNVA) | payer MEDICAID, SELFPAY | PROVIDERS: PCP Family Medicine; Visit Provider Nurse Practitioner Women's Health | DX: Z20.2 Contact with and (suspected) exposure to infections with a predominantly sexual mode of transmission (principal) | CPT/HCPCS: 86592; 86803; 87340; 87491; 87591; 87661; 87806 ==

== ENCOUNTER → 2021-02-22 14:59 | Outpatient (BNVA) | payer MEDICAID, SELFPAY | PROVIDERS: PCP Family Medicine; Visit Provider Nurse Practitioner Women's Health | DX: Z32.01 Encounter for pregnancy test, result positive (principal) | CPT/HCPCS: 84702 ==

== ENCOUNTER → 2021-03-08 17:59 | Outpatient (BNVA) | payer MEDICAID, SELFPAY | PROVIDERS: PCP Family Medicine; Visit Provider Registered Nurse Neonatal Intensive Care | DX: R10.9 Unspecified abdominal pain (principal) | CPT/HCPCS: 81000; 81025; 87086; 87491; 87591; 87661 ==

== ENCOUNTER 2021-05-17 02:32 | Emergency (ER) | payer MEDICAID, SELFPAY ==
[2021-05-17 02:40] VITALS: BP 153/79; PULSE 100; RESP 16; TEMP 36.6; O2SAT 99; BMI 19.2
[2021-05-17 04:43] VITALS: BP 149/96; PULSE 79; RESP 16; O2SAT 98
--- NOTE | 2021-05-17 05:32 | CTR_ITS ---
PROCEDURE INFORMATION: Exam: CT Head Without Contrast Exam date and time: 05/17/2021 5:32 AM Age: 31 years old Clinical indication: Visual disturbance; Additional info: Vision change left eye, ptosis left TECHNIQUE: Imaging protocol: Computed tomography of the head without contrast. Radiation optimization: All CT scans at this facility use at least one of these dose optimization techniques: automated exposure control; mA and/or kV adjustment per patient size (includes targeted exams where dose is matched to clinical indication); or iterative reconstruction. COMPARISON: CT head wo con* [id number] 09/16/2019 12:32 AM RADIATION DOSE METRICS: Total DLP (mGy-cm): 737.22 FINDINGS: Brain: Normal. No hemorrhage. Unremarkable white matter. No mass effect. Cerebral ventricles: No ventriculomegaly. Paranasal sinuses: Visualized sinuses are unremarkable. No fluid levels. Mastoid air cells: Visualized mastoid air cells are well aerated. Bones/joints: Unremarkable. No acute fracture. Soft tissues: Unremarkable. CT/CT head wo con* [id number] IMPRESSION: No acute intracranial abnormality.
[2021-05-17 05:47] LABS: Basophils # 0.1 10^3/uL (0.0-0.1); Basophils % 0.5 %; Eosinophils # 0.5 10^3/uL (0.0-0.8); Eosinophils % 3.6 %; Hematocrit 41.5 % (37.0-47.0); Hemoglobin 13.8 g/dL (11.5-15.3); Lymphocytes # 2.4 10^3/uL (0.8-4.8); Lymphocytes % 19.2 %; Mean Corpuscular HGB Conc 33.3 g/dL (30.0-36.0); Mean Corpuscular Volume 93.3 fl (81-99); Mean Platelet Volume 10.6 fL (7.4-10.4); Monocytes # 0.7 10^3/uL (0.2-0.9); Monocytes % 5.3 %; Neutrophils # 8.75 10^3/uL (1.8-7.7); Nucleated Red Blood Cells % 0 %; Platelet Count 245 10^3/cmm (130-400); Red Blood Count 4.45 10^6/uL (4.1-5.3); Red Cell Distribution Width 12.7 % (12.1-15.1); White Blood Count 12.3 10^3/uL (4.0-10.0)
[2021-05-17 06:02] VITALS: BP 142/74; PULSE 79; RESP 16; TEMP 36.6; O2SAT 98
[2021-05-17 06:14] LABS: Erythrocyte Sedimentation Rate 2 mm/hr (0-15)
[2021-05-17 06:15] LABS: Alanine Aminotransferase 6 U/L (0-33); Alkaline Phosphatase 51 IU/L (35-105); Anion Gap 12.9 (5-19); Aspartate Amino Transferase 5 U/L (0-32); Blood Urea Nitrogen 5 mg/dL (6-20); C Reactive Protein 0.3 mg/L (0.0-4.9); Calcium 8.4 mg/dL (8.5-10.5); Carbon Dioxide 25 mmol/L (22-29); Chloride 105 mmol/L (98-107); Glucose 83 mg/dL (65-115); Osmolality Calculated 284 mOsm/kg (285-295); Potassium 3.9 mmol/L (3.5-5.1); Sodium 139 mmol/L (136-145); Total Bilirubin 0.2 mg/dL (0.15-1.2)
[2021-05-17 06:39] VITALS: BP 133/82; PULSE 74; RESP 16; TEMP 36.6; O2SAT 97
--- NOTE | 2021-05-17 16:34 | ED_ITS ---
HPI - Headache General: Chief Complaint: Eye Problems Stated Complaint: Left eye Twithing\Left Side Headache Time Seen by Provider: 05/17/21 05:19 History of Present Illness: HPI Narrative: Healthy 31 yo presenting with several complaints. the first is that of eye twitching which has been going on a couple of days. She notes that her right toe was doing the same thing prior. She began to get a headache earlier today, and noticed that her twitching was worse. When asked, she does say that she has a history of low calcium levels at least once. No other weakness, numbness, mental status changes. language problems, etc. She says her vision is a bit blurry on the right, which is the eye that is twitching. MD elicited complaint: headache and other Pertinent past history: other Onset (ago): hour(s) Relieving factors: other Context: occurred at rest Associated symptoms: Deny chest pain, confusion, eye pain, eye redness, fever(s), neck stiffness, photophobia, seizures, sound sensitivity or vomiting Review of Systems Const: Denies: fever(s) Eyes: Reports: blurry vision; Denies: blind spots, photophobia, eye discomfort or eye discharge Card: Denies: chest pain GI: Denies: vomiting Neuro: Denies: confusion PFSH ED PFSH: Medical History Anxiety with depression Generalized abdominal pain No pertinent past medical history neghx: htn,dm,thyroid,dvt/pe PCP: Dr. Alba Surgical History H/O LEEP x2 at ages 15 and 16 years old Family History Grandmother Breast cancer Maternal grandmother--dx'd in her 60s Ovarian cancer Maternal grandmother---dx age unknown Son Diabetes Type 1 Family history of thyroid problem Mother Hypertension Hyperlipidemia Heart disease Father Family history of thyroid problem Denies family history of Colon cancer Uterine cancer Stroke Female Reproductive History: Date of last menstrual period: 08/20/20 Physical Exam Const: COMMON NORMALS: no acute distress, patient oriented x3, healthy appearing and well nourished GENERAL APPEARANCE: cooperative HENMT: COMMON NORMALS: normocephalic, atraumatic, external ears normal, Normal external nose present and Normal nasal mucous membranes and turbinates present HEAD & SCALP: normocephalic and atraumatic FACE & SINUS: normal facial exam and face symmetric NOSE: Normal external nose present and Normal nasal mucous membranes and turbinates present EXTERNAL EAR: Yes external ears normal Eye: DIRECT OPHTHALMOSCOPY: No photophobia Resp: COMMON NORMALS: normal respiratory effort and No use of accessory muscles Cardio: COMMON NORMALS: regular rate RATE: regular rate Neuro: NESTOR COMA SCALE: document GCS findings Nestor coma scale eye opening: Spontaneous [place] coma scale verbal response: Orientated Nestor coma scale motor response: Obey commands [place] coma scale total score: 15 COMMON NORMALS: patient oriented x3 MOTOR EXAM: Motor abnormalities not present Course Vital Signs: Vital signs: Vital Signs Temperature 98 F 05/17/21 06:39 Pulse Rate 74 05/17/21 06:39 Respiratory Rate 16 05/17/21 06:39 Blood Pressure 133/82 05/17/21 06:39 Pulse Oximetry 97 05/17/21 06:39 MDM - Headache MDM Narrative: Medical decision making narrative: Head CT normal. WBC 12.3. Ca is minimallly low, although could be a problem with twitching as other factors are absent. She'll be allowed dc. No alarming signs otherwise. Lab Data: Labs: Lab Results 05/17/21 05/17/21 05/17/21 05:43 05:43 05:43 WBC 12.3 10^3/uL H 10 ^3/uL (4.0-10.0) RBC 4.45 10^6/uL 10^6 /uL (4.1-5.3) Hgb 13.8 g/dL g/dL (11.5-15.3) Hct 41.5 % % (37.0-47.0) MCV 93.3 fl fl (81-99) MCH 31.0 pg pg (28.0-34.0) MCHC 33.3 g/dL g/dL (30.0-36.0) RDW 12.7 % % (12.1-15.1) Plt Count 245 10^3/cmm 10^3 /cmm (130-400) MPV 10.6 fL H fL (7.4-10.4) Neut % (Auto) 71.0 % % Lymph % (Auto) 19.2 % % [place] % (Auto) 5.3 % % Eos % (Auto) 3.6 % % Baso % (Auto) 0.5 % % Neut # (Auto) 8.75 10^3/uL H 10 ^3/uL (1.8-7.7) Lymph # (Auto) 2.4 10^3/uL 10^3/ uL (0.8-4.8) [place] # (Auto) 0.7 10^3/uL 10^3/ uL (0.2-0.9) Eos # (Auto) 0.5 10^3/uL 10^3/ uL (0.0-0.8) Baso # (Auto) 0.1 10^3/uL 10^3/ uL (0.0-0.1) Nucleated RBC % (a uto) 0 % % Nucleated RBCs # 0.0 /100WBC /100W BC ESR 2 mm/hr mm/hr (0-15) Sodium 139 mmol/L mmol/L (136-145) Potassium 3.9 mmol/L mmol/L (3.5-5.1) Chloride 105 mmol/L mmol/L (98-107) Carbon Dioxide 25 mmol/L mmol/L (22-29) Anion Gap 12.9 (5-19) BUN 5 mg/dL L mg/dL (6-20) Creatinine 0.5 mg/dL mg/dL (0.5-0.9) GFR Calculation 143.0 mL/min H mL /min (90-130) Glucose 83 mg/dL mg/dL (65-115) Calculated Osmolal ity 284 mOsm/kg L mOs m/kg (285-295) Calcium 8.4 mg/dL L mg/dL (8.5-10.5) Total Bilirubin 0.2 mg/dL mg/dL (0.15-1.2) AST 5 U/L U/L (0-32) ALT 6 U/L U/L (0-33) Alkaline Phosphata se 51 IU/L IU/L (35-105) C-Reactive Protein 0.3 mg/L mg/L (0.0-4.9) Total Protein 7.0 g/dL g/dL (6.6-8.7) Albumin 4.0 g/dL g/dL (3.5-5.2) Globulin 3.0 g/dL g/dL (1.3-4.6) Discharge Plan Discharge Patient Disposition: Home Clinical Impression: Hypocalcemia Condition: Stable Prescriptions: New calcium carbonate-vitamin D3 600 mg (1,500 mg)-2,500 unit capsule 1 cap PO DAILY Qty: 30 RF: 0 No Action fluoxetine [Prozac] 20 mg capsule 20 mg PO DAILY Qty: 30 RF: 2 trazodone 50 mg tablet 50 mg PO .HS PRN (Reason: insomnia) Qty: 30 RF: 2 norgestimate-ethinyl estradiol [Ortho Tri-Cyclen (28)] 0.18/0.215/0.25 mg-35 mcg (28) tablet 1 tab PO DAILY Qty: 84 RF: 3 alprazolam 0.25 mg tablet 0.125 mg PO DAILY PRN (Reason: anxiety) RF: 0 Discharge Orders: Discharge ED (Routine); Ordered 05/17/21 Ordered By: Doug Aviles Referrals: Lyn Guzman DO [Primary Care Provider] - 4-7 days Discharge Diet: Advance as tolerated Discharge Activity: Increase activity as tolerated Patient Instructions: Hypocalcemia (ED) Activity Restrictions/Additional Instructions: Check your blood pressure twice daily and record numbers for your physician. Follow-up with your doctor next week. Consider supplementing calcium at least when symptomatic. Return for worsening vision, worsening headache, other concerning symptoms. 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
== END 2021-05-17 06:43 | disposition home or self-care (01) ==
PROVIDERS: Emergency Provider Emergency Medicine; PCP Family Medicine
DX: E83.51 Hypocalcemia (principal)
CPT/HCPCS: 70450; 80053; 85025; 85651; 86140; 99283

== ENCOUNTER → 2021-08-11 11:21 | Outpatient (BNVA) | payer MEDICAID, SELFPAY | PROVIDERS: PCP Family Medicine; Visit Provider Nurse Practitioner Women's Health | DX: Z32.01 Encounter for pregnancy test, result positive (principal) | CPT/HCPCS: 84702 ==

== ENCOUNTER → 2021-08-12 18:51 | Outpatient (BNVA) | payer MEDICAID, SELFPAY | PROVIDERS: PCP Family Medicine; Visit Provider Nurse Practitioner | DX: R10.9 Unspecified abdominal pain (principal) | CPT/HCPCS: 81000; 87491; 87591; 87661 ==

== ENCOUNTER → 2021-08-25 14:00 | Outpatient (BNVA) | payer MEDICAID, SELFPAY | PROVIDERS: PCP Family Medicine; Visit Provider Nurse Practitioner Women's Health | DX: N89.8 Other specified noninflammatory disorders of vagina (principal) | CPT/HCPCS: 87070; 87205 ==

== ENCOUNTER 2022-01-05 14:34 | Outpatient (CLI) | payer MEDICAID, SELFPAY ==
--- NOTE | 2022-01-05 14:43 | XR_ITS ---
WS: [id number] Cervical spine, AP view, lateral and flexion, extension and neutral position, 01/05/2022 Clinical Data: CERVICALGIA Comparison: AP and lateral soft tissue neck, 09/10/2020., Cervical spine 09/13/2019. Findings: No compression fractures are seen. The disc heights are normal. There is no prevertebral so ft tissue swelling. The odontoid is unremarkable on the lateral view.. The soft tissues of the neck a nd the lung apices are normal. On flexion and extension there is no limitation of motion or subluxati on. XR/XR cervical spine 4-5V [id number] Impression: 1. Negative cervical spine. 2. No limitation of motion or subluxation on flexion or extension.
== END 2022-01-05 14:35 | disposition home or self-care (01) ==
LOC: RAD 14:36
PROVIDERS: PCP Family Medicine; Visit Provider Nurse Practitioner Family
DX: M54.2 Cervicalgia (principal)
CPT/HCPCS: 72050

== ENCOUNTER 2022-02-02 17:49 | Emergency (ER) | payer MEDICAID, SELFPAY ==
--- NOTE | 2022-02-02 18:16 | XRR_ITS ---
PROCEDURE INFORMATION: Exam: XR Chest Exam date and time: 02/02/2022 6:24 PM Age: 31 years old Clinical indication: Shortness of breath; Additional info: Dyspnea TECHNIQUE: Imaging protocol: Radiologic exam of the chest. Views: 1 view. COMPARISON: CR XR chest 1V portable [id number] 11/11/2019 8:26 AM FINDINGS: Lungs: Unremarkable. No consolidation. Pleural spaces: Unremarkable. No pleural effusion. No pneumothorax. Heart/Mediastinum: Unremarkable. No cardiomegaly. Bones/joints: Unremarkable. XR/XR chest 1V portable [id number] IMPRESSION: No acute findings.
[2022-02-02 18:28] VITALS: BP 114/77; PULSE 103; RESP 18; TEMP 36.9; O2SAT 96; BMI 19.2
--- NOTE | 2022-02-02 18:31 | ECG_ITS ---
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 Measurements Intervals [place] Rate: 88 P: AR: QRS: 87 QRSD: 82 T: 69 QT: 344 QTc: 417 Interpretive Statements SINUS RHYTHM WITH SINUS ARRHYTHMIA Compared to ECG 11/11/2019 08:19:03 NO SIGNIFICANT CHANGES SEEN Electronically Signed On 02-03-2022 10:33:50 CDT by Fernando Hewitt M.D. [id number]
--- NOTE | 2022-02-02 18:56 | W.ED.URI ---
HPI - URI/Sore Throat General: Chief Complaint: Shortness of Breath/Dyspnea Stated Complaint: sob Time Seen by Provider: 02/02/22 18:40 History of Present Illness: Patient is a 31-year-old female who comes to the ED with upper respiratory symptoms. Symptoms started approximately 3 days ago. Patient admits to a doing a lot of vaping preceding her symptoms. She endorses having a productive cough with clear sputum. She has some shortness of breath as well. Her cough worsens when she takes deep breaths. Denies any known sick contacts. Patient was seen at urgent care today before coming to the ED and diagnosed with bronchitis with bronchospasms discharged home with a prescription for albuterol inhaler, prednisone and levofloxacin. Associated symptoms: Deny abdominal pain, chills, chest pain, diarrhea, fever(s), headache(s), nasal congestion, nausea or vomiting Review of Systems Const: Denies: fever(s), chills or fatigue Eyes: Denies: change in vision or eye discomfort ENMT: Denies: throat pain, odynophagia, nasal discharge or nasal congestion Card: Denies: chest pain, palpitations, edema, swelling of feet/ankles, dyspnea on exertion or orthopnea Resp: Reports: dyspnea and productive cough (Clear sputum); Denies: non-productive cough GI: Denies: abdominal pain, nausea, vomiting, diarrhea, constipation or hematochezia : Denies: flank pain, dysuria or hematuria Musc: Denies: neck pain, back pain or extremity swelling Skin/Breast: Denies: rash or new lesions Neuro: Denies: headache(s), numbness in extremities or weakness in extremities PFS ED PFSH: Medical History Anxiety with depression Generalized abdominal pain No pertinent past medical history neghx: htn,dm,thyroid,dvt/pe PCP: Dr. Alba Surgical History H/O LEEP x2 at ages 15 and 16 years old Family History Grandmother Breast cancer Maternal grandmother--dx'd in her 60s Ovarian cancer Maternal grandmother---dx age unknown Son Diabetes Type 1 Family history of thyroid problem Mother Hypertension Hyperlipidemia Heart disease Father Family history of thyroid problem Denies family history of Colon cancer Uterine cancer Stroke Social History Smoking and tobacco status: current every day smoker Female Reproductive History: Date of last menstrual period: 08/20/20 Physical Exam Const: COMMON NORMALS: no acute distress, patient oriented x3, healthy appearing and alert GENERAL APPEARANCE: cooperative and comfortable HENMT: COMMON NORMALS: normocephalic HEAD & SCALP: normocephalic MOUTH: Normal oral and palatal mucosa present THROAT: posterior oropharynx normal and uvula midline Eye: COMMON NORMALS: Equal, round and reactive pupils present and conjunctivae normal CONJUNCTIVA: Yes conjunctivae normal PUPIL: Yes Equal, round and reactive pupils present Neck/C-Spine: COMMON NORMALS: supple GENERAL: Yes normal visual inspection Resp: COMMON NORMALS: normal respiratory effort, No retractions and No use of accessory muscles EFFORT & INSPECTION: Yes able to speak in complete sentences and Yes Actively coughing non-productive AUSCULTATION: wheezes expiratory wheezes and lower bilaterally Cardio: COMMON NORMALS: regular rate, regular rhythm, S1 normal heart sound present, S2 normal heart sound present, No gallops present (Cardio), No clicks present (Cardio), No murmurs present (Cardio) and Peripheral pulses 2+ throughout RATE: regular rate RHYTHM: regular rhythm HEART SOUNDS: S1 normal heart sound present and S2 normal heart sound present PERIPHERAL PULSES: Peripheral pulses 2+ throughout GI: COMMON NORMALS: Normal to inspection, nondistended, normoactive bowel sounds present, Soft to palpation, non-tender and no masses PALPATION: Yes Soft to palpation : COMMON NORMALS: Yes no CVA tenderness BLADDER/KIDNEY EXAM: Yes no CVA tenderness Back/Pelvis: COMMON NORMALS: no CVA tenderness Extremity: COMMON NORMALS: normal to inspection Neuro: COMMON NORMALS: patient oriented x3 SENSORIUM/ORIENTATION: Yes alert GAIT: Yes Normal gait present Skin: GENERAL SKIN EXAM: dry skin Course Vital Signs: Vital signs: Vital Signs Temperature 98.9 F 02/02/22 20:32 Pulse Rate 91 02/02/22 20:57 Respiratory Rate 18 02/02/22 20:57 Blood Pressure 116/85 02/02/22 20:32 Pulse Oximetry 97 02/02/22 20:57 Oxygen Delivery Me thod 02/02/22 20:57 MDM - URI/Sore Throat Medical Decision Making Patient is a 31-year-old female who comes to the ED with upper respiratory symptoms. Symptoms started approximately 3 days ago. Patient admits to a doing a lot of vaping preceding her symptoms. She endorses having a productive cough with clear sputum. Patient was seen at urgent care today before coming to the ED and diagnosed with bronchitis with bronchospasms discharged home with a prescription for albuterol inhaler, prednisone and levofloxacin. Vitals are stable. Patient does have some expiratory wheezing upon auscultation. Chest x-ray showed no acute findings. Influenza and COVID were negative. EKG showed no acute findings. Patient was given DuoNeb breathing treatment here in the ED and then stable for discharge home. She was diagnosed with bronchitis with bronchospasms. She was told to continue taking her previously prescribed medications. Encouraged to stop vaping. Follow-up with PCP in the next week for reevaluation. Return to ED precautions given. Patient understood and agreed with plan. Lab Data Radiology Impressions Chest X-Ray 02/02/22 18:16 IMPRESSION: No acute findings. Laboratory Results Coronavirus 229E (PCR) Not detected (NOT DETECT) 02/02/22 19:39 Human Metapneumovir PCR Not detected (NOT DETECT) 02/03/22 00:51 Entero/Rhino (PCR) Detected (NOT DETECT) A 02/03/22 00:51 SARS-CoV-2 (PCR) Not detected (NOT DETECT) 02/02/22 19:39 EKG Data EKG 1: EKG interpretation date: 02/02/22 Interpretation: Normal sinus rhythm, 88 bpm, no ST segment elevation or depression seen. Discharge Plan Discharge Patient Disposition: Home Clinical Impression: Bronchitis with bronchospasm, Encounter for laboratory testing for COVID-19 virus Condition: Stable Prescriptions: New benzonatate 100 mg capsule 100 mg PO TID PRN (Reason: cough) Qty: 15 0RF No Action prednisone 20 mg tablet 60 mg PO DAILY 5 Days Qty: 15 0RF levofloxacin 750 mg tablet 750 mg PO DAILY 7 Days Qty: 7 0RF albuterol sulfate 90 mcg/actuation HFA aerosol inhaler 2 inh inhalation Q4H PRN (Reason: shortness of breath or wheezing) Qty: 6.7 0RF alprazolam 0.25 mg tablet 0.125 mg PO DAILY PRN (Reason: anxiety) calcium carbonate-vitamin D3 600 mg (1,500 mg)-2,500 unit capsule 1 cap PO DAILY Qty: 30 0RF Discharge Orders: Discharge ED (Routine); Ordered 02/02/22 Ordered By: Dayne Roger Referrals: Lyn Guzman DO [Primary Care Provider] - Discharge Diet: Regular Discharge Activity: Increase activity as tolerated Patient Instructions: Bronchitis (Acute) - Adult, Bronchospasm Activity Restrictions/Additional Instructions: Follow-up with medical provider as directed in the next 5 to 7 days for reevaluation. Influenza and COVID tests are pending. You can call [facility] later tonight or tomorrow morning to find out COVID and influenza results. Continue taking your previously prescribed albuterol inhaler, antibiotic and prednisone as prescribed. Return to the ER or your medical provider if condition worsens. Please read and understand discharge instructions. Thank you for choosing [facility] for your healthcare needs today. Please realize this is an emergency room and that we are providing you with a medical screening exam and this may not be complete and all inclusive of all the testing and or work up that you may need to determine your ailment or severity of your illness. It is very important that you follow up as instructed or that you return to the Emergency Department should you have concerns or if your condition changes or worsens in any way. Coding Level of Care Code ED Manager Assessment for Kwame Herrera Exam Comprehensive
[2022-02-02 20:32] VITALS: BP 116/85; PULSE 91; RESP 17; TEMP 37.2; O2SAT 97
[2022-02-02] MEDS: ipratropium-albuterol 3 mL Neb 6 ML INHALATION (20:55)
[2022-02-02 20:57] VITALS: PULSE 91; RESP 18; O2SAT 97
[2022-02-03 00:17] LABS: Adenovirus Not Detected (NOT DETECT); Chlamydia Pneumoniae Not Detected (NOT DETECT); Coronavirus 229E,HKU1,NL63,OC4 Not Detected (NOT DETECT); Human Metapneumovirus Not Detected (NOT DETECT); Human Rhinovirus/Enterovirus Detected (NOT DETECT); Influenza A Not Detected (NOT DETECT); Influenza A H1 Not Detected (NOT DETECT); Influenza A H1-2009 Not Detected (NOT DETECT); Influenza A H3 Not Detected (NOT DETECT); Influenza B Not Detected (NOT DETECT); Mycoplasma Pneumoniae Not Detected (NOT DETECT); Parainfluenza Virus Type 1 Not Detected (NOT DETECT); Parainfluenza Virus Type 2 Not Detected (NOT DETECT); Parainfluenza Virus Type 3 Not Detected (NOT DETECT); Parainfluenza Virus Type 4 Not Detected (NOT DETECT); Respiratory Syncytial Virus A Not Detected (NOT DETECT); Respiratory Syncytial Virus B Not Detected (NOT DETECT); SARS-COV-2 Not Detected (NOT DETECT)
[2022-02-03 01:05] LABS: Human Metapneumovirus Not Detected (NOT DETECT); Human Rhinovirus/Enterovirus Detected (NOT DETECT); Results from Genmark
== END 2022-02-02 21:14 | disposition home or self-care (01) ==
PROVIDERS: Emergency Provider Physician Assistant; PCP Family Medicine
DX: J20.9 Acute bronchitis, unspecified (principal); F17.200 Nicotine dependence, unspecified, uncomplicated; Z20.822 Contact with and (suspected) exposure to COVID-19; Z82.49 Family history of ischemic heart disease and other diseases of the circulatory system
CPT/HCPCS: 71045; 87635; 87801; 93005; 94640; 99284

== ENCOUNTER → 2022-04-11 17:03 | Outpatient (BNVA) | payer MEDICAID, SELFPAY | PROVIDERS: PCP Family Medicine; Visit Provider Family Medicine | DX: Z30.9 Encounter for contraceptive management, unspecified (principal); R30.0 Dysuria; R09.82 Postnasal drip; J06.9 Acute upper respiratory infection, unspecified; R10.31 Right lower quadrant pain | CPT/HCPCS: 81000; 81025; 84702 ==

== ENCOUNTER 2022-05-24 03:30 | Emergency (ER) | payer MEDICAID, SELFPAY ==
[2022-05-24 03:35] VITALS: BP 166/90; PULSE 98; RESP 14; TEMP 36.9; O2SAT 97
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
[2022-05-24] MEDS: iohexol 350 mg/mL 500 mL Btl (per mL) IV (04:12)
--- NOTE | 2022-05-24 04:26 | PC.NURSE ---
Pt requests that we do not tell her parents (who are listed as her emergency contacts) info about her visit if they call margaret
[2022-05-24] MEDS: LORazepam 1 mg Tablet PO (04:29)
== END 2022-05-24 04:33 | disposition home or self-care (01) ==
PROVIDERS: Emergency Provider Emergency Medicine; PCP Family Medicine
DX: S19.9XXA Unspecified injury of neck, initial encounter (principal); F17.210 Nicotine dependence, cigarettes, uncomplicated; Y04.2XXA Assault by strike against or bumped into by another person, initial encounter
CPT/HCPCS: 70491; 99285; Q9967

== ENCOUNTER 2022-06-07 02:53 | Emergency (ER) | payer MEDICAID, SELFPAY ==
[2022-06-07 02:59] VITALS: BP 131/91; PULSE 86; RESP 20; O2SAT 98; BMI 18.8
[2022-06-07 03:04] VITALS: BP 152/109; PULSE 89; RESP 17; TEMP 37.2; O2SAT 100
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
[2022-06-07] MEDS: LORazepam 1 mg Tablet PO (03:39)
[2022-06-07] MEDS: acetaminophen 500 mg Tablet 1000 MG PO (03:39)
[2022-06-07 03:55] VITALS: BP 148/103; PULSE 79; RESP 16; O2SAT 99
== END 2022-06-07 03:57 | disposition home or self-care (01) ==
PROVIDERS: Emergency Provider Emergency Medicine
DX: S00.83XA Contusion of other part of head, initial encounter (principal); Y04.2XXA Assault by strike against or bumped into by another person, initial encounter; F17.210 Nicotine dependence, cigarettes, uncomplicated
CPT/HCPCS: 70450; 70486; 81025; 99284

== ENCOUNTER → 2022-07-13 16:19 | Outpatient (BNVA) | payer MEDICAID, SELFPAY | PROVIDERS: Visit Provider Registered Nurse Neonatal Intensive Care | DX: N39.0 Urinary tract infection, site not specified (principal); R30.0 Dysuria; Z20.2 Contact with and (suspected) exposure to infections with a predominantly sexual mode of transmission | CPT/HCPCS: 81000; 81025; 87491; 87591; 87661 ==

== ENCOUNTER 2022-07-30 17:36 | Emergency (ER) | payer MEDICAID, SELFPAY ==
[2022-07-30 17:42] VITALS: BP 159/105; PULSE 110; RESP 20; TEMP 36.7; O2SAT 95
--- NOTE | 2022-07-30 17:50 | XRR_ITS ---
PROCEDURE INFORMATION: Exam: XR Chest Exam date and time: 07/30/2022 5:54 PM Age: 32 years old Clinical indication: Pain; Chest pressure; Additional info: Chest pain TECHNIQUE: Imaging protocol: Radiologic exam of the chest. Views: 1 view. COMPARISON: CR XR chest 1V portable [id number] 02/02/2022 6:24 PM FINDINGS: Lungs: Lungs are clear bilaterally. Pleural spaces: No pleural effusion. No pneumothorax. Heart/Mediastinum: The cardiac silhouette and mediastinal contours are unremarkable. Bones/joints: Unremarkable for age. XR/XR chest 1V portable [id number] IMPRESSION: No acute cardiopulmonary process.
--- NOTE | 2022-07-30 17:51 | ED_ITS ---
HPI - Chest Pain General: Chief Complaint: Chest Pain Stated Complaint: chest pain Time Seen by Provider: 07/30/22 17:37 Source: patient Mode of arrival: ambulatory Limitations: no limitations History of Present Illness: Patient is a 32-year-old female presents to ED today with a complaint of chest pain that started 1 to 2 days ago. Patient states she has been going through a lot of stress and anxiety lately as her sister recently overdosed and committed suicide. She states she has been drinking alcohol over the past 4 evenings to help with her anxiety. Patient denies history of chest pains. She denies shortness of breath or difficulty breathing. No lower extremity swelling or calf pain. No risk factors for PE other than she is on oral contraception. When questioned she does report some vague non-specific suicidal ideations but states she would never harm herself as she has a son. No previous attempts. MD complaint: chest pain Onset (ago): day(s) Timing of current episode: episodic Prior episodes: No Onset: during rest Pain location: substernal and left chest Pain radiation: none Severity: mild Quality: sharp Relieving factors: nothing Exacerbating factors: movement Context: other (anxiety) Associated symptoms: Reports no associated symptoms; Deny abdominal pain, dyspnea, fever(s), nausea, palpitations, syncope or vomiting Treatment prior to arrival: none Risk Factors: Coronary artery disease risk factors: none Thoracic aortic dissection risk factors: none Pulmonary embolism risk factors: oral contracepetive use Related Data: On Oral Contraceptives: Yes Review of Systems Const: Denies: fever(s), chills, body aches, fatigue or malaise Eyes: Denies: change in vision, blurry vision, photophobia, floaters or seeing flashes ENMT: Denies: throat pain, odynophagia, nasal discharge or nasal congestion Card: Reports: chest pain; Denies: palpitations, irregular heart rhythm, edema, swelling of feet/ankles, lightheadedness, syncope, pre-syncope, dyspnea on exertion, orthopnea, leg pain with exertion or acrocyanosis Resp: Denies: dyspnea, productive cough, non-productive cough, wheezing, pain on inspiration, hemoptysis or chest congestion GI: Denies: abdominal pain, nausea, vomiting or diarrhea : Denies: flank pain Musc: Denies: neck pain, back pain, extremity pain or joint pain Skin/Breast: Denies: rash Neuro: Denies: headache(s) or dizziness Psych: Reports: anxiety and depression; Denies: irritability, visual hallucinations, auditory hallucinations, suicidal ideation or homicidal ideation PFSH ED PFSH: Medical History Anxiety with depression Generalized abdominal pain No pertinent past medical history neghx: htn,dm,thyroid,dvt/pe PCP: Dr. Alba Surgical History H/O LEEP x2 at ages 15 and 16 years old Family History Grandmother Breast cancer Maternal grandmother--dx'd in her 60s Ovarian cancer Maternal grandmother---dx age unknown Son Diabetes Type 1 Family history of thyroid problem Mother Hypertension Hyperlipidemia Heart disease Father Family history of thyroid problem Denies family history of Colon cancer Uterine cancer Stroke Social History Smoking and tobacco status: current every day smoker Physical Exam Const: COMMON NORMALS: no acute distress, average body habitus, patient oriented x3, no limitations, healthy appearing, alert and well nourished GENERAL APPEARANCE: cooperative and anxious ORIENTATION/CONSCIOUSNESS: Yes awake, Yes oriented to person, Yes oriented to place and Yes oriented to time HENMT: COMMON NORMALS: normocephalic and atraumatic HEAD & SCALP: normal to inspection, normocephalic and atraumatic FACE & SINUS: normal facial exam Eye: GENERAL EYE: appearance normal, both eyes and all related structures Neck/C-Spine: COMMON NORMALS: full ROM, no lymphadenopathy, no meningeal signs, no JVD and No carotid bruits GENERAL: Yes normal visual inspection Resp: COMMON NORMALS: normal respiratory effort and clear to auscultation bilaterally AUSCULTATION: clear to auscultation bilaterally Cardio: COMMON NORMALS: no JVD, regular rate and regular rhythm RATE: regular rate RHYTHM: regular rhythm GI: COMMON NORMALS: Normal to inspection, nondistended, normoactive bowel sounds present, Soft to palpation and non-tender PALPATION: Yes Soft to palpation Extremity: COMMON NORMALS: normal to inspection, full ROM, no joint enlargement and no calf tenderness GENERAL: Yes normal exam except as noted Neuro: NESTOR COMA SCALE: document GCS findings [place] coma scale eye opening: Spontaneous [place] coma scale verbal response: Orientated [place] coma scale motor response: Obey commands [place] coma scale total score: 15 COMMON NORMALS: patient oriented x3, CN's II-XII intact bilaterally, moves all extremities, no focal motor deficits, no sensory deficits noted and gait normal SENSORIUM/ORIENTATION: Yes alert, Yes oriented to person, Yes oriented to place and Yes oriented to time MENINGEAL SIGNS: Yes no meningeal signs Psych: COMMON NORMALS: mental status grossly normal, Normal thought process present, cooperative, normal affect, speech normal, activity/motor behavior normal, denies hallucinations and denies homicidal ideation APPEARANCE: Yes grossly normal ATTITUDE: Yes calm ACTIVITY/MOTOR BEHAVIOR: Yes appropriate eye contact SPEECH: Yes normal speech MOOD & AFFECT: Yes euthymic mood THOUGHT PROCESS: Normal thought process present THOUGHT CONTENT: Yes Normal thought content present ATTENTION/CONCENTRATION: Yes attention grossly intact and Yes concentration grossly intact MEMORY/COGNITION: Yes memory grossly intact and Yes cognition grossly intact INSIGHT: Good insight present (Psych) JUDGEMENT: Good judgement present (Psych) Skin: COMMON NORMALS: no rashes or lesions noted GENERAL SKIN EXAM: no rashes or lesions noted TRAUMA: no lacerations or abrasions Course Consultations: Consultation #1: Dr. Holman-agrees patient is safe to go home Vital Signs: Vital signs: Vital Signs Temperature 98.1 F 07/30/22 17:42 Pulse Rate 105 H 07/30/22 18:36 Respiratory Rate 16 07/30/22 18:36 Blood Pressure 130/88 07/30/22 18:36 Pulse Oximetry 95 07/30/22 18:36 Oxygen Delivery Me thod 07/30/22 18:36 MDM - Chest Pain Medical Decision Making Patient is a 32-year-old female here for complaints of chest pain. Patient has been going through a lot of anxiety over the past several days dealing with the loss of her sister. I think her chest pain is secondary to anxiety. She states it is much improved while here. Her EKG shows no concerning findings. CXR is normal. Give her a small amount of Xanax to help with her anxiety. She did express some nonspecific suicidal ideations. I ran this by Dr. Holman who feels patient is stable to go home. She was given resources for the crisis stabilization center and I have placed information with case management to get her set up with [facility]. Strict return ED precautions given. Lab Data Radiology Impressions Chest X-Ray 07/30/22 17:50 IMPRESSION: No acute cardiopulmonary process. Discharge Plan Discharge Patient Disposition: Home Clinical Impression: Anxiety, Grief reaction, Non-cardiac chest pain Condition: Stable Prescriptions: Changed alprazolam 0.25 mg tablet 0.125 mg PO BID PRN (Reason: anxiety) Qty: 14 0RF No Action cetirizine [Zyrtec] 10 mg tablet 10 mg PO DAILY PRN (Reason: allergy symptoms) Qty: 30 0RF fluticasone propionate [Flonase Allergy Relief] 50 mcg/actuation spray,suspension 2 spray intranasal DAILY Qty: 16 0RF Rx Instructions: administer into each nostril norgestimate-ethinyl estradiol [Sprintec (28)] 0.25-35 mg-mcg tablet 1 tab PO DAILY Qty: 84 1RF Rx Instructions: take on first day of menstrual cycle metronidazole 500 mg tablet 500 mg PO BID 7 Days Qty: 14 0RF albuterol sulfate 90 mcg/actuation HFA aerosol inhaler 2 inh inhalation Q4H PRN (Reason: shortness of breath or wheezing) Qty: 6.7 0RF calcium carbonate-vitamin D3 600 mg (1,500 mg)-2,500 unit capsule 1 cap PO DAILY Qty: 30 0RF Naprosyn 500 mg tablet 500 mg PO BID PRN (Reason: pain) Qty: 20 0RF benzonatate 100 mg capsule 100 mg PO TID PRN (Reason: cough) Qty: 15 0RF Naprosyn 500 mg tablet 500 mg PO BID PRN (Reason: pain) Qty: 20 0RF Discharge Orders: Discharge ED (Routine); Ordered 07/30/22 Ordered By: Jacklyn Jay Activity Restrictions/Additional Instructions: I have placed a referral with case management to get you set up with services at [facility]. You should hear back from them early this week regarding this appointment. You may also utilize our Crisis Stabilization Center until then. You need to return to the emergency department or contact 911 if you begin having worsening thoughts of wanting to harm yourself or any active plan to do so. Coding Level of Care Code ED Tight Rope Walker for Kwame Herrera
--- NOTE | 2022-07-30 17:54 | ECG_ITS ---
[facility] Test Date: 2022-07-30 Pat Name: Pauly Batres Department: Room: Gender: Female Phlebotomy Director: : 1990 Requested By: Jacklyn Jay Order Number: [id number] Ari MD: Marcos Solis M.D. Measurements Intervals [place] Rate: 95 P: 81 IA: 149 QRS: 86 QRSD: 93 T: 72 QT: 356 QTc: 448 Interpretive Statements SINUS RHYTHM POSSIBLE LEFT ATRIAL ENLARGEMENT [-0.1mV P-WAVE IN V1/V2] Compared to ECG 02/02/2022 18:31:56 Sinus arrhythmia no longer present Electronically Signed On 07-31-2022 23:20:30 CDT by Marcos Solis M.D. [id number]
[2022-07-30] MEDS: ALPRAZolam 0.5 mg Tablet 0.25 MG PO (18:29)
[2022-07-30 18:36] VITALS: BP 130/88; PULSE 105; RESP 16; O2SAT 95
--- NOTE | 2022-08-01 10:04 | DCPLANNER ---
Addendum entered by Yessi Adkins 08/02/22 07:23: manager statistical programming received the following message from the scheduling desk at [facility] regarding follow up: coming in for a walk in manager statistical programming received the following message from Nina Kessler, parts coordinator, at [facility] regarding follow up: I spoke to Lizeth today and she is planning on coming in for walk in assessment tomorrow. Original Note: manager statistical programming had message to schedule a follow up appointment for patient at [facility]. manager statistical programming sent patients information to the front office staff at [facility]. Patients information will be printed and reviewed. Clinic will call patient with appointment information. manager statistical programming also sent patients information to Nina Kessler, parts coordinator at [facility]. Patients information will be reviewed, clinic will call patient to discuss services available at [facility].
--- NOTE | 2022-08-02 16:00 | DCPLANNER ---
Addendum entered by Yessi Adkins 08/03/22 12:37: case reviewer called patient due to no primary care physician - no answer at this time. Original Note: field training manager called patient due to no primary care physician - no answer at this time.
== END 2022-07-30 18:50 | disposition home or self-care (01) ==
PROVIDERS: Emergency Provider Physician Assistant
DX: R07.9 Chest pain, unspecified (principal); F41.9 Anxiety disorder, unspecified; F43.20 Adjustment disorder, unspecified; F17.200 Nicotine dependence, unspecified, uncomplicated
CPT/HCPCS: 71045; 93005; 99284

== ENCOUNTER 2022-10-09 18:14 | Emergency (ER) | payer MEDICAID, SELFPAY ==
[2022-10-09 18:18] VITALS: BP 141/107; PULSE 110; RESP 17; TEMP 36.8; O2SAT 97; BMI 19.2
--- NOTE | 2022-10-09 18:35 | ED_ITS ---
HPI - Back Pain/Injury General: Chief Complaint: Back Pain/Injury Stated Complaint: back pain Time Seen by Provider: 10/09/22 18:25 History of Present Illness: 32-year-old female who says she was wrestling 2 days ago, and hurt her back at that time. She complains of a sharp pain to the right side of her lumbar back. No midline tenderness. No radicular pain past the knee. She notes that for a brief period of time, she experienced some numbness to the right arm and right leg, but this is improved. She has pain with movement. She has not taken anything for the pain. She also notes that her urine smells strong, and it feels like she has to go, but she does not go a lot. MD elicited complaint: back pain and back injury Pertinent past history: other Onset (ago): day(s) Timing: constant Severity: moderate Similar Symptoms Previously: No Quality: sharp Location: lumbar spine Radiation: none Exacerbating factors: movement Relieving factors: none Associated symptoms: Reports urinary frequency and urinary urgency; Deny abdominal pain, difficulty walking, dysuria, fatigue, fecal incontinence, numbness, tingling/numbness/burning or vomiting Review of Systems Const: Denies: fatigue Card: Denies: chest pain Resp: Denies: dyspnea GI: Denies: abdominal pain, vomiting or fecal incontinence : Reports: urinary urgency; Denies: dysuria Neuro: Denies: difficulty walking Psych: Reports: anxiety [facility] ED PFSH: Medical History Anxiety with depression Generalized abdominal pain No pertinent past medical history neghx: htn,dm,thyroid,dvt/pe PCP: Dr. Alba Surgical History H/O LEEP x2 at ages 15 and 16 years old Family History Grandmother Breast cancer Maternal grandmother--dx'd in her 60s Ovarian cancer Maternal grandmother---dx age unknown Son Diabetes Type 1 Family history of thyroid problem Mother Hypertension Hyperlipidemia Heart disease Father Family history of thyroid problem Denies family history of Colon cancer Uterine cancer Stroke Social History (Reviewed 05/21/23 @ 18:51 by MAU Isaac Smoking and tobacco status: current every day smoker Physical Exam Const: COMMON NORMALS: no acute distress GENERAL APPEARANCE: cooperative; not ill appearing and not frail appearing HENMT: COMMON NORMALS: normocephalic, atraumatic and Normal external nose present HEAD & SCALP: normocephalic and atraumatic FACE & SINUS: normal facial exam and face symmetric NOSE: Normal external nose present Eye: COMMON NORMALS: Equal, round and reactive pupils present and EOMs intact bilaterally PUPIL: Yes Equal, round and reactive pupils present Neck/C-Spine: GENERAL: Yes trachea midline Chest: CHEST: Yes Symmetrical chest wall rise Resp: COMMON NORMALS: normal respiratory effort, No retractions, No use of accessory muscles and clear to auscultation bilaterally AUSCULTATION: clear to auscultation bilaterally Cardio: COMMON NORMALS: regular rate and regular rhythm RATE: regular rate RHYTHM: regular rhythm GI: COMMON NORMALS: Normal to inspection, nondistended, normoactive bowel sounds present Back/Pelvis: OTHER: No flank or CVA tenderness. There is tenderness over the iliolumbar ligament on the right. There is no midline spinal tenderness. Straight leg raise test is negative on the right and left Extremity: COMMON NORMALS: no pedal edema Neuro: NESTOR COMA SCALE: document GCS findings [place] coma scale eye opening: Spontaneous [place] coma scale verbal response: Orientated [place] coma scale motor response: Obey commands [place] coma scale total score: 15 SENSORY EXAM: Yes extremities (intact) Psych: COMMON NORMALS: speech normal SPEECH: Yes normal speech Skin: COMMON NORMALS: no rashes or lesions noted GENERAL SKIN EXAM: no rashes or lesions noted Course Vital Signs: Vital signs: Vital Signs Temperature 98.3 F 10/09/22 20:39 Pulse Rate 77 10/09/22 20:39 Respiratory Rate 16 10/09/22 20:39 Blood Pressure 138/99 10/09/22 20:39 Pulse Oximetry 93 10/09/22 20:39 Oxygen Delivery Me thod Room Air 10/09/22 18:18 MDM - Back Pain/Injury Medical Decision Making Urinalysis is highly contaminated, and does not show clear evidence of urinary tract infection. Exam is consistent with iliolumbar ligament strain. Pain is improved with pain medication here. She will be prescribed anti-inflammatories and muscle relaxers. Outpatient follow-up. Labs Radiology Impressions Lumbar Spine X-Ray 10/09/22 18:43 IMPRESSION: No acute findings. Laboratory Results HCG, Qual Negative (Negative) 10/09/22 18:50 Urine Color Yellow (Yellow) 10/09/22 18:50 Urine Appearance Sl hazy (CLEAR) A 10/09/22 18:50 Urine pH 6.5 (5-7) 10/09/22 18:50 Ur Specific [place] 1.015 (1.005-1.030) 10/09/22 18:50 Urine Protein Neg (Negative) 10/09/22 18:50 Urine Glucose (UA) Norm (Normal) 10/09/22 18:50 Urine Ketones Negative (Negative) 10/09/22 18:50 Urine Blood 2+ (Negative) H 10/09/22 18:50 Urine Nitrate Positive (Negative) H 10/09/22 18:50 Urine Bilirubin Neg (Negative) 10/09/22 18:50 Urine Urobilinogen 1 mg/dL (Negative) H 10/09/22 18:50 Ur Leukocyte Esterase Trace (Negative) H 10/09/22 18:50 Urine RBC 5-10 /hpf (0-2) H 10/09/22 18:50 Urine WBC 5-10 /hpf (0-5) H 10/09/22 18:50 Ur Squamous Epith Cells 15-25 /hpf (0-5) H 10/09/22 18:50 Amorphous Sediment Not Reportable 10/09/22 18:50 Urine Bacteria 3+ /hpf (NONE) H 10/09/22 18:50 Urine Mucus 1+ /hpf 10/09/22 18:50 Discharge Plan Discharge Patient Disposition: Home Clinical Impression: Sprain of iliolumbar ligament Condition: Stable Prescriptions: New ketorolac 10 mg tablet 10 mg PO TID PRN (Reason: pain) Qty: 10 0RF methocarbamol 750 mg tablet 750 mg PO Q8H Qty: 14 0RF No Action cetirizine [Zyrtec] 10 mg tablet 10 mg PO DAILY PRN (Reason: allergy symptoms) Qty: 30 0RF fluticasone propionate [Flonase Allergy Relief] 50 mcg/actuation spray,suspension 2 spray intranasal DAILY Qty: 16 0RF Rx Instructions: administer into each nostril norgestimate-ethinyl estradiol [Sprintec (28)] 0.25-35 mg-mcg tablet 1 tab PO DAILY Qty: 84 1RF Rx Instructions: take on first day of menstrual cycle metronidazole 500 mg tablet 500 mg PO BID 7 Days Qty: 14 0RF albuterol sulfate 90 mcg/actuation HFA aerosol inhaler 2 inh inhalation Q4H PRN (Reason: shortness of breath or wheezing) Qty: 6.7 0RF calcium carbonate-vitamin D3 600 mg (1,500 mg)-2,500 unit capsule 1 cap PO DAILY Qty: 30 0RF Naprosyn 500 mg tablet 500 mg PO BID PRN (Reason: pain) Qty: 20 0RF benzonatate 100 mg capsule 100 mg PO TID PRN (Reason: cough) Qty: 15 0RF Naprosyn 500 mg tablet 500 mg PO BID PRN (Reason: pain) Qty: 20 0RF alprazolam 0.25 mg tablet 0.125 mg PO BID PRN (Reason: anxiety) Qty: 14 0RF Discharge Orders: Discharge ED (Routine); Ordered 10/09/22 Ordered By: Doug Aviles Referrals: Kwan Ambriz MD [Primary Care Provider] - 1-3 days Patient Instructions: Low Back Strain (ED) Activity Restrictions/Additional Instructions: Follow-up with your doctor later this week. Medications as directed. Stand Alone Forms: Work/School Release Coding Level of Care Code ED Gluing Machine Operator Electronic for Kwame Herrera
--- NOTE | 2022-10-09 18:43 | XRR_ITS ---
PROCEDURE INFORMATION: Exam: XR Lumbosacral Spine Exam date and time: 10/09/2022 6:55 PM Age: 32 years old Clinical indication: Low back pain and sciatica; Right; Additional info: R low back pain TECHNIQUE: Imaging protocol: Radiologic exam of the lumbosacral spine. Views: 2 or 3 views. COMPARISON: CR XR lumbar spine 2-3V* [id number] 09/13/2019 4:27 PM FINDINGS: Bones/joints: Normal. No acute fracture. Normal alignment. Soft tissues: Unremarkable. XR/XR lumbar spine 2-3V* [id number] IMPRESSION: No acute findings.
[2022-10-09 19:10] LABS: HCG Qualitative Urine. Negative (Negative)
[2022-10-09] MEDS: ondansetron 4 MG Tablet PO (19:11)
[2022-10-09 19:12] VITALS: RESP 16
[2022-10-09] MEDS: oxyCODONE-APAP 5-325 mg Tablet 2 TAB PO (19:12)
[2022-10-09 19:59] VITALS: BP 138/99; PULSE 77; RESP 16; O2SAT 93
[2022-10-09 20:11] LABS: Specific Gravity, Urine 1.015 (1.005-1.030); Urine Appearance SL Hazy (CLEAR); Urine Color Yellow (Yellow); pH Urine 6.5 (5-7)
[2022-10-09 20:12] LABS: Add Urine Microscopic? YES; Bilirubin Urine Neg (Negative); Blood Urine 2+ (Negative); Glucose Urine UA Norm (Normal); Ketones Urine Negative (Negative); Leukocyte Esterase Urine Trace (Negative); Nitrate Urine Positive (Negative); Protein Urine Neg (Negative); Urobilinogen Urine 1 mg/dL (Negative)
[2022-10-09 20:13] LABS: Bacteria Urine 3+ /hpf; Mucus Urine 1+ /hpf; Squamous Epithelial Cell Urine 15-25 /hpf (0-5)
[2022-10-09 20:39] VITALS: BP 138/99; PULSE 77; RESP 16; TEMP 36.8; O2SAT 93
== END 2022-10-09 20:39 | disposition home or self-care (01) ==
PROVIDERS: Emergency Provider Emergency Medicine; PCP Family Medicine
DX: S33.5XXA Sprain of ligaments of lumbar spine, initial encounter (principal); F17.210 Nicotine dependence, cigarettes, uncomplicated; X58.XXXA Exposure to other specified factors, initial encounter; Y93.72 Activity, wrestling
CPT/HCPCS: 72100; 81001; 81025; 99284; Q0162

== ENCOUNTER → 2022-11-06 16:56 | Outpatient (BNVA) | payer MEDICAID, SELFPAY | PROVIDERS: PCP Family Medicine; Visit Provider Emergency Medicine | DX: R39.9 Unspecified symptoms and signs involving the genitourinary system (principal); Z20.2 Contact with and (suspected) exposure to infections with a predominantly sexual mode of transmission; N30.01 Acute cystitis with hematuria | CPT/HCPCS: 81000; 87077; 87086; 87184; 87491; 87591 ==

== ENCOUNTER → 2022-11-07 12:00 | Outpatient (BNVA) | payer MEDICAID, SELFPAY | PROVIDERS: PCP Family Medicine; Visit Provider Emergency Medicine | DX: R39.9 Unspecified symptoms and signs involving the genitourinary system (principal); Z20.2 Contact with and (suspected) exposure to infections with a predominantly sexual mode of transmission; N30.01 Acute cystitis with hematuria | CPT/HCPCS: 87491; 87591; 87661 ==

== ENCOUNTER → 2022-11-26 19:05 | Outpatient (BNVA) | payer MEDICAID, SELFPAY | PROVIDERS: PCP Family Medicine; Visit Provider Family Medicine | DX: R30.0 Dysuria (principal); Z31.9 Encounter for procreative management, unspecified | CPT/HCPCS: 81000; 83001; 84443 ==

== ENCOUNTER 2022-12-09 19:40 | Emergency (ER) | payer MEDICAID, SELFPAY ==
[2022-12-09 19:44] VITALS: PULSE 111; RESP 20; TEMP 36.6; O2SAT 99; BMI 27.4
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
[2022-12-09 21:50] VITALS: BP 129/99; PULSE 88; RESP 18; TEMP 36.6; O2SAT 96
== END 2022-12-09 21:52 | disposition home or self-care (01) ==
PROVIDERS: Emergency Provider Nurse Practitioner Family; PCP Family Medicine
DX: S20.211A Contusion of right front wall of thorax, initial encounter (principal); F17.210 Nicotine dependence, cigarettes, uncomplicated; W50.0XXA Accidental hit or strike by another person, initial encounter
CPT/HCPCS: 71101; 99283

== ENCOUNTER 2023-04-29 00:12 | Emergency (ER) | payer MEDICAID, SELFPAY ==
[2023-04-29 00:42] VITALS: BP 145/94; PULSE 83; RESP 18; TEMP 36.7; O2SAT 98
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
[2023-04-29 01:47] LABS: HCG Qualitative Urine. Negative (Negative)
[2023-04-29 01:50] LABS: Glucose Urine UA Norm (Normal); Ketones Urine Negative (Negative); Protein Urine Neg (Negative); Specific Gravity, Urine 1.015 (1.005-1.030); Urine Appearance Clear (CLEAR); Urine Color Yellow (Yellow); pH Urine 6 (5-7)
[2023-04-29 01:51] LABS: Add Urine Microscopic? YES; Bacteria Urine TRACE /hpf; Bilirubin Urine Neg (Negative); Blood Urine 2+ (Negative); Leukocyte Esterase Urine Negative (Negative); Nitrate Urine Negative (Negative); RBC Urine 0-4 /hpf (0-2); Squamous Epithelial Cell Urine 0-4 /hpf (0-5); Urobilinogen Urine Norm (Negative); WBC Urine 0-4 /hpf (0-5)
[2023-04-29 02:12] VITALS: PULSE 82; RESP 16; O2SAT 98
== END 2023-04-29 02:11 | disposition home or self-care (01) ==
PROVIDERS: Emergency Provider Emergency Medicine; PCP Family Medicine
DX: Z04.71 Encounter for examination and observation following alleged adult physical abuse (principal)
CPT/HCPCS: 81001; 81025; 99283

== ENCOUNTER 2023-05-17 14:07 | Emergency (ER) | payer MEDICAID, SELFPAY ==
[2023-05-17 14:15] VITALS: BP 142/100; PULSE 105; RESP 16; TEMP 37.1; O2SAT 97; BMI 18.6
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
[2023-05-17] MEDS: tetanus-dipt-pertussis 0.5 mL SDV IM (15:57)
[2023-05-17 16:21] VITALS: BP 138/83; PULSE 83; RESP 16; TEMP 37.1; O2SAT 98
== END 2023-05-17 16:25 | disposition home or self-care (01) ==
PROVIDERS: Emergency Provider Family Medicine; PCP Family Medicine
DX: S71.111A Laceration without foreign body, right thigh, initial encounter (principal); W26.0XXA Contact with knife, initial encounter; Z72.0 Tobacco use; Z23 Encounter for immunization
CPT/HCPCS: 12002; 90471; 90715; 99283

== ENCOUNTER → 2023-10-01 16:22 | Outpatient (BNVA) | payer MEDICAID, SELFPAY | PROVIDERS: PCP Family Medicine; Visit Provider Registered Nurse Neonatal Intensive Care | DX: R06.2 Wheezing (principal) | CPT/HCPCS: 71046 ==

== ENCOUNTER 2023-10-01 20:24 | Inpatient (IN) | payer MEDICAID, SELFPAY ==
[2023-10-01 20:36] VITALS: BP 122/80; PULSE 122; RESP 29; TEMP 37.3; O2SAT 94; BMI 19.3
[2023-10-01 22:02] VITALS: BP 135/88; PULSE 110; RESP 16; O2SAT 93
--- NOTE | 2023-10-01 22:04 | XRR_ITS ---
PROCEDURE INFORMATION: Exam: XR Chest Exam date and time: 10/01/2023 10:15 PM Age: 33 years old Clinical indication: Shortness of breath; Patient HX: Cough; SOB; Anxiety attack TECHNIQUE: Imaging protocol: Radiologic exam of the chest. Views: 1 view. COMPARISON: CR XR chest 2V* [id number] 10/01/2023 4:30 PM FINDINGS: Lungs: No focal consolidation. Pleural spaces: No evidence of pneumothorax. No evidence of pleural effusion. Heart/Mediastinum: Cardiomediastinal silhouette is within normal limits. Bones/joints: No evidence of acute osseous abnormality. XR/XR chest 1V portable [id number] IMPRESSION: 1. No acute cardiopulmonary abnormality.
[2023-10-01] MEDS: methylPREDNISolone sod succ 125 mg/2 mL INJ 80 MG IVP (22:18)
[2023-10-01 22:27] LABS: Basophils % 0.2 %; Hematocrit 46.3 % (36-47); Lymphocytes # 0.2 10^3/uL (0.8-4.8); Lymphocytes % 2.3 %; Mean Corpuscular HGB Conc 34.1 g/dL (30-55); Mean Corpuscular Volume 93.7 fl (85-98); Mean Platelet Volume 10.1 fL (7.4-10.4); Monocytes # 0.1 10^3/uL (0.2-0.9); Monocytes % 0.5 %; Neutrophils # 9.67 10^3/uL (1.8-7.7); Neutrophils % 96.7 %; Nucleated Red Blood Cells % 0 %; Platelet Count 246 10^3/cmm (157-399); Red Blood Count 4.94 10^6/uL (3.85-5.65); Red Cell Distribution Width 12.2 % (12.1-15.1)
[2023-10-01] MEDS: ALPRAZolam 0.5 mg Tablet PO (22:27)
[2023-10-01 22:34] VITALS: BP 124/85; PULSE 107; RESP 18; O2SAT 93
--- NOTE | 2023-10-01 22:35 | W.ED.SOB ---
HPI - SOB/Dyspnea General: Chief Complaint: Shortness of Breath/Dyspnea Stated Complaint: Cough\SOB Time Seen by Provider: 10/01/23 21:54 History of Present Illness: HPI Narrative: 33-year-old female whose been sick a little more than 24 hours. She complains of fever, cough, some sputum production with green sputum, wheezing, tightness in her chest and shortness of breath. She says that she has a child who is sick at home. She vapes, and notes shortness of breath and wheezing when she vapes. She was seen today at urgent care, and given an albuterol inhaler with prednisone which she has taken, without much improvement. Associated symptoms: Reports chest pain and fever(s); Deny abdominal pain, dizziness, nausea, palpitations or vomiting Review of Systems Const: Reports: fever(s); Denies: chills or body aches Eyes: Denies: change in vision Card: Reports: chest pain; Denies: palpitations Resp: Denies: dyspnea, productive cough, non-productive cough or wheezing GI: Denies: abdominal pain, nausea, vomiting, diarrhea or hematochezia : Denies: difficulty voiding Skin/Breast: Denies: rash Neuro: Denies: headache(s), weakness in extremities, dizziness or confusion PFSH ED PFSH: Medical History Psychiatric care No pertinent past medical history neghx: htn,dm,thyroid,dvt/pe PCP: Dr. Alba Generalized abdominal pain Anxiety with depression Surgical History H/O LEEP x2 at ages 15 and 16 years old Family History Grandmother Breast cancer Maternal grandmother--dx'd in her 60s Ovarian cancer Maternal grandmother---dx age unknown Son Diabetes Type 1 Family history of thyroid problem Mother Hypertension Hyperlipidemia Heart disease Father Family history of thyroid problem Denies family history of Colon cancer Uterine cancer Stroke Social History Smoking and tobacco/nicotine status: current every day tobacco/nicotine user e-cigarettes E-Cigarette Details: vaporizer device Alcohol intake: never Substance/Drug Use: never Physical Exam Const: GENERAL APPEARANCE: cooperative and ill appearing; not frail appearing HENMT: COMMON NORMALS: normocephalic, atraumatic and Normal external nose present HEAD & SCALP: normocephalic and atraumatic FACE & SINUS: normal facial exam and face symmetric NOSE: Normal external nose present Eye: COMMON NORMALS: Equal, round and reactive pupils present and EOMs intact bilaterally PUPIL: Yes Equal, round and reactive pupils present Neck/C-Spine: GENERAL: Yes trachea midline Chest: CHEST: Yes Symmetrical chest wall rise Resp: EFFORT & INSPECTION: Yes able to speak in complete sentences, Yes tachypneic and Yes uses accessory muscles AUSCULTATION: wheezes Cardio: COMMON NORMALS: regular rhythm RATE: tachycardic RHYTHM: regular rhythm GI: COMMON NORMALS: Normal to inspection, nondistended, normoactive bowel sounds present Extremity: COMMON NORMALS: no pedal edema Neuro: NESTOR COMA SCALE: document GCS findings Nestor coma scale eye opening: Spontaneous Nestor coma scale verbal response: Orientated Nestor coma scale motor response: Obey commands Nestor coma scale total score: 15 SENSORY EXAM: Yes extremities (intact) Psych: COMMON NORMALS: speech normal SPEECH: Yes normal speech Skin: COMMON NORMALS: no rashes or lesions noted GENERAL SKIN EXAM: no rashes or lesions noted Course Vital Signs: Vital signs: Vital Signs Temperature 99.2 F 10/01/23 20:36 Pulse Rate 100 10/02/23 01:39 Respiratory Rate 18 10/02/23 01:39 Blood Pressure 119/75 10/02/23 01:39 Pulse Oximetry 94 10/02/23 01:39 Oxygen Delivery Me thod Nasal Cannula 10/02/23 01:39 Oxygen Flow Rate 2 10/02/23 01:39 MDM - SOB/Dyspnea Medical Decision Making This patient is mildly tachycardic in the 110s. She has a saturation of 91% on room air with tachypnea. She has a temperature of 99.2. Her white blood cell count is 10. Her chest x-ray is negative. Other laboratory including D-dimer pending. She is getting a DuoNeb treatment and Solu-Medrol here. She is still tachycardic. R respiratory rate is still in the 30s. She is placed on oxygen, with nearly immediate reduction in her heart rate to around 100. Saturations are 92 to 94% on 2 L. Respiratory rate has dropped to the 20s. She is less anxious. Temperature is 99.2. Bicarbonate is 20. Lactic acid is 2.5 initially, up to 4.4. She is receiving a sepsis bolus. She is receiving Rocephin and Zithromax after blood cultures. D-dimer was elevated, so CTA was performed, it shows bronchitis in the right lower lobe, but no evidence of pulmonary embolism and no other infiltrate. Respiratory panel is pending. She will be observed. Hospitalist is seeing the patient in the ER. Lab Data 10/01/23 22:22 10/01/23 22:22 Labs/Radiology: Radiology Impressions Chest X-Ray 10/01/23 22:04 IMPRESSION: 1. No acute cardiopulmonary abnormality. Chest CTA 10/01/23 23:28 IMPRESSION: 1. Mild bronchitis in the right lower lobe. 2. No evidence of pulmonary embolism. Laboratory Results WBC 10.00 10^3/uL (3.29-11.43) 10/01/23 22: RBC 4.94 10^6/uL (3.85-5.65) 10/01/23 22:22 Hgb 15.80 g/dL (11.27-16.99) 10/01/23 22:22 Hct 46.3 % (36-47) 10/01/23 22:22 MCV 93.7 fl (85-98) 10/01/23 22:22 MCH 32.0 pg (27-33) 10/01/23 22: MCHC 34.1 g/dL (30-55) 10/01/23 22:22 RDW 12.2 % (12.1-15.1) 10/01/23 22:22 Plt Count 246 10^3/cmm (157-399) 10/01/23 22:22 MPV 10.1 fL (7.4-10.4) 10/01/23 22: Neut % (Auto) 96.7 % 10/01/23 22: Lymph % (Auto) 2.3 % 10/01/23 22:22 Pope % (Auto) 0.5 % 10/01/23 22: Eos % (Auto) 0.0 % 10/01/23 22: Baso % (Auto) 0.2 % 10/01/23 22:22 Neut # (Auto) 9.67 10^3/uL (1.8-7.7) H 10/01/23 22:22 Lymph # (Auto) 0.2 10^3/uL (0.8-4.8) L 10/01/23 22:22 Pope # (Auto) 0.1 10^3/uL (0.2-0.9) L 10/01/23 22:22 Eos # (Auto) 0.0 10^3/uL (0.0-0.8) 10/01/23 22:22 Baso # (Auto) 0.0 10^3/uL (0.0-0.1) 10/01/23 22:22 Nucleated RBC % (auto) 0 % 10/01/23 22: Nucleated RBCs # 0.0 /100WBC 10/01/23 22:22 D-Dimer 0.69 ug/mLFEU (0-0.59) H 10/01/23 22:22 Sodium 133 mmol/L (136-145) L 10/01/23 22:22 Potassium 4.0 mmol/L (3.5-5.1) 10/01/23 22:22 Chloride 101 mmol/L (98-107) 10/01/23 22:22 Carbon Dioxide 20 mmol/L (22-29) L 10/01/23 22:22 Anion Gap 16.0 (5-19) 10/01/23 22:22 BUN 6 mg/dL (6-20) 10/01/23 22:22 Creatinine 0.6 mg/dL (0.5-0.9) 10/01/23 22:22 GFR Calculation 114.4 mL/min (90-130) 10/01/23 22:22 Glucose 155 mg/dL (65-115) H 10/01/23 22:22 Calculated Osmolality 277 mOsm/kg (285-295) L 10/01/23 22:22 Lactic Acid 2.5 mmol/L (0.5-2.2) H 10/01/23 22:22 Lactic Acid (Sepsis) 4.4 mmol/L (0.5-2.2) H* 10/02/23 01:34 Calcium 9.5 mg/dL (8.5-10.5) 05/12/24 22:22 HCG, Qual Negative (Negative) 10/01/23 22:22 All radiology interpretation(s) finalized by discharge Discharge Plan Discharge Patient Disposition: Placed in Observation Admit Provider: Asif Schwartz Clinical Impression: Acute hypoxemic respiratory failure, Acute bronchitis Condition: Stable Coding Level of Care Code ED Conference Specialist for Kwame Herrera
[2023-10-01 22:40] VITALS: PULSE 120; RESP 22; O2SAT 95
[2023-10-01] MEDS: ipratropium-albuterol 3 mL Neb INHALATION (22:40)
[2023-10-01 22:46] VITALS: PULSE 117
[2023-10-01 22:54] LABS: Lactic Sepsis W/Reflex 2.5 mmol/L (0.5-2.2)
[2023-10-01 22:55] LABS: Blood Urea Nitrogen 6 mg/dL (6-20); Calcium 9.5 mg/dL (8.5-10.5); Carbon Dioxide 20 mmol/L (22-29); Chloride 101 mmol/L (98-107); Creatinine Clr Calc Pharmacy 111.2118; Glomerular Filtration Rate 114.4 mL/min (90-130); Glucose 155 mg/dL (65-115); Osmolality Calculated 277 mOsm/kg (285-295); Sodium 133 mmol/L (136-145)
[2023-10-01 22:56] LABS: HCG, Serum Qual Negative (Negative)
[2023-10-01 23:10] LABS: D Dimer 0.69 ug/mLFEU (0-0.59)
--- NOTE | 2023-10-01 23:28 | CTR_ITS ---
PROCEDURE INFORMATION: Exam: CTA Chest With Contrast Exam date and time: 10/01/2023 11:44 PM Age: 33 years old Clinical indication: Abnormal findings; Abnormal diagnostic tests; Elevated d-dimer; Cough and shortness of breath; Patient HX: Cough with SOB. Dimer 0.69. ; Additional info: SOB tachycardia hypoxia TECHNIQUE: Imaging protocol: Computed tomographic angiography of the chest with contrast. Exam focused on the arteries. 3D rendering (Not supervised by radiologist): MIP and/or 3D reconstructed images were created by the technologist. Radiation optimization: All CT scans at this facility use at least one of these dose optimization techniques: automated exposure control; mA and/or kV adjustment per patient size (includes targeted exams where dose is matched to clinical indication); or iterative reconstruction. Contrast material: OMNI 350; Contrast volume: 50 ml; Contrast route: INTRAVENOUS (IV); COMPARISON: CR (CHEST, ) 10/01/2023 10:15 PM RADIATION DOSE METRICS: Total DLP (mGy-cm): 181.82 FINDINGS: Pulmonary arteries: There is no evidence of filling defects within the pulmonary arterial circulation to suggest pulmonary embolism. Aorta: There is no thoracic aortic aneurysm or dissection. Lungs: There is bronchial wall thickening in right lower lobe bronchi which could represent some bronchitis. Please correlate with the clinical findings. No focal consolidation is identified. Pleural spaces: Unremarkable. No pneumothorax. No pleural effusion. Heart: Unremarkable. No cardiomegaly. No pericardial effusion. Lymph nodes: There is mild right hilar adenopathy with suprahilar lymph node measuring 11 x 15 mm. There is no mediastinal adenopathy. Bones/joints: There is no evidence of acute fracture. Soft tissues: Unremarkable. CT/CT angio chest PE protcl [id number] IMPRESSION: 1. Mild bronchitis in the right lower lobe. 2. No evidence of pulmonary embolism.
[2023-10-01 23:32] VITALS: BP 119/89; PULSE 106; RESP 18; O2SAT 91
[2023-10-01] MEDS: iohexol 350 mg/mL 500 mL Btl (per mL) IV (23:45)
[2023-10-02] VITALS (19 sets, daily range): BP systolic 99–129; BP diastolic 64–86; PULSE 68–119; RESP 16–20; TEMP 36.5–37.1; O2SAT 91–96; BMI 20.5
[2023-10-02 00:13] LABS: Reflex Lactate Order REFLEX LACTIC ORDERD
[2023-10-02 01:56] LABS: Lactic Acid level (Lactate) 4.4 mmol/L (0.5-2.2)
[2023-10-02] MEDS: cefTRIAXone 1,000 MG in sodium chloride 0.9% (plus) 50 ML 100 MG IV (02:12)
--- NOTE | 2023-10-02 02:17 | P.HP_ITS ---
Providers/Chief Complaint 2 Admitting Physician: Asif Schwartz MD Primary Care Provider: Kwan Ambriz MD Chief Complaint: Cough\SOB History of Present Illness Pauly Batres is a 33 year old female with no significant past medical history, who presents [facility] due to shortness of breath, wheezing, cough. Patient tells me that she is a current vapor, she denies any drug use, he tells me that whenever she vapes, she feels short of breath she gets wheezing, but typically be episodes are quite short-lived. However today she does report vaping, and about at the same time she started developing shortness of breath, wheezing, chest tightness, productive cough, with subjective fevers, she does report that she has a child sick at home, 11 years old. She was seen at urgent care, given albuterol, prednisone however her symptoms continue to persist, she was having palpitations, shortness of breath, cough, wheezing, chest tightness so that prompted her to come to the emergency room. Review of Systems 2 Const: Reports: fever(s) Card: Reports: palpitations Resp: Reports: dyspnea Medications/Allergies Home Medications Medication Instructions Recorded Confirmed Last Taken Type albuterol sulfate 90 mcg/actuation 2 inh inhalation Q4H PRN shortness 12/10/22 10/01/23 Unknown Rx aerosol inhaler of breath or wheezing #6.7 grams cetirizine 10 mg tablet (Zyrtec) 10 mg PO DAILY PRN allergy 12/10/22 10/01/23 Unknown Rx symptoms #30 tabs ibuprofen 800 mg tablet 800 mg PO Q8H PRN pain #20 tabs 12/10/22 10/01/23 Unknown Rx mupirocin 2 % topical ointment 1 applic topical DAILY #15 grams 05/17/23 10/01/23 Unknown Rx peg 3350-electrolytes 236 240 ml PO Q10M #4,000 mL 07/01/23 10/01/23 Unknown Rx gram-22.74 gram-6.74 gram-5.86 gram solution (Golytely) albuterol sulfate 90 mcg/actuation 2 puff inhalation Q4H PRN 10/01/23 10/01/23 Unknown Rx aerosol inhaler (Ventolin HFA) shortness of breath or wheezing #8.5 grams prednisone 20 mg tablet 40 mg (2 x 20 mg) PO DAILY 5 days 10/01/23 10/01/23 Unknown Rx #10 tabs Allergies Allergy/AdvReac Type Severity Reaction Status Date / Time sulfadiazine Allergy Mild Nausea Verified 10/01/23 20:41 aspirin Allergy Unknown Unknown Verified 10/01/23 20:41 Penicillins Allergy Unknown Unknown Verified 10/01/23 20:41 PFSH Acute 2 PFSH: Medical History Psychiatric care No pertinent past medical history neghx: htn,dm,thyroid,dvt/pe PCP: Dr. Alba Generalized abdominal pain Anxiety with depression Surgical History H/O LEEP x2 at ages 15 and 16 years old Family History Grandmother Breast cancer Maternal grandmother--dx'd in her 60s Ovarian cancer Maternal grandmother---dx age unknown Son Diabetes Type 1 Family history of thyroid problem Mother Hypertension Hyperlipidemia Heart disease Father Family history of thyroid problem Denies family history of Colon cancer Uterine cancer Stroke Social History (Updated 10/02/23 @ 02:19 by Asif Schwartz MD) Smoking and tobacco/nicotine status: current every day tobacco/nicotine user e- cigarettes E-Cigarette Details: vaporizer device Alcohol intake: never Substance/Drug Use: never Vitals/I&O/Wt Last Vital Signs Temp 99.2 F 10/01/23 20:36 Pulse 100 10/02/23 01:39 Resp 18 10/02/23 01:39 BP 119/75 10/02/23 01:39 Pulse Ox 94 10/02/23 01:39 O2 Del Method Nasal Cannula 10/02/23 01:39 O2 Flow Rate 2 10/02/23 01:39 10/01/23 10/01/23 10/02/23 14:59 22:59 06:59 Intake Total 1641 / 1641 Balance 1641 / 1641 Weight last 48 hrs Weight 51.256 kg Physical Exam 2 Const: COMMON NORMALS: no acute distress and patient oriented x3 HENMT: COMMON NORMALS: normocephalic HEAD & SCALP: normocephalic Eye: COMMON NORMALS: Equal, round and reactive pupils present Neck/C-Spine: COMMON NORMALS: no JVD Resp: COMMON NORMALS: normal respiratory effort, No retractions, No use of accessory muscles and clear to auscultation bilaterally AUSCULTATION: wheezes Cardio: COMMON NORMALS: no JVD, regular rate, regular rhythm, S1 normal heart sound present and S2 normal heart sound present RATE: tachycardic RHYTHM: regular rhythm HEART SOUNDS: S1 normal heart sound present and S2 normal heart sound present GI: COMMON NORMALS: Normal to inspection, nondistended, normoactive bowel sounds present, Soft to palpation and non-tender PALPATION: Yes Soft to palpation and Yes No hepatosplenomegaly present Extremity: COMMON NORMALS: no calf tenderness and no pedal edema Neuro: COMMON NORMALS: patient oriented x3, CN's II-XII intact bilaterally and moves all extremities Psych: COMMON NORMALS: mental status grossly normal Sepsis: Is patient septic: Yes Focused sepsis exam performed: Yes F ocused sepsis exam: DP PT pulses palpable, cap refill less than 2 seconds, no mottling, no skin changes Date exam was performed: 10/02/23 Time exam was performed: 02:23 Data 10/01/23 22:22 10/01/23 22:22 A&P Assessment and plan (1) Acute hypoxemic respiratory failure: (2) Acute lung injury associated with nicotine vapor product use: (3) Elevated lactic acid level: (4) Right lower lobe pneumonia: (5) Sepsis: (6) Tachycardia: Plan Acute hypoxic respiratory failure ? Requiring 2 L, tachycardic, complains of shortness of breath, wheezing on examination ? Likely component of vape induced lung injury ? Right lower lobe bronchitis/pneumonia ? Plan ? Monitor respiratory status closely ? DuoNeb -Budesonide ? Continue IV fluids ? Rocephin ? Azithromycin ? Solu-Medrol 40 mg every 6 hours, has received 125 mg of Solu-Medrol in the ER ? Respiratory viral panel ? Blood cultures ? Elevated lactic acid, likely associate with respiratory failure, sepsis features met, secondary to right lower lobe pneumonia, evidence of low bicarb, elevated D-dimer, status post sepsis bolus, status post antibiotics in the ER, continue IV fluids at 125 cc, telemetry monitoring ? Serial troponins, serial EKGs ? Full code ? Lovenox for DVT prophylaxis Attestations 2 Medical Necessity Statement*: Patient requires hospitalization, inpatient, greater than 2 midnights, for acute hypoxic respiratory failure, secondary to weight induced lung injury, right lower lobe bronchitis/pneumonia, sepsis, elevated lactic acid Coding Level of Care Code 06775 Diagnoses Acute hypoxemic respiratory failure J96.01 Acute lung injury associated with nicotine vapor product use U07.0 Elevated lactic acid level R79.89 Right lower lobe pneumonia J18.9 Sepsis A41.9 Tachycardia R00.0
[2023-10-02 02:51] LABS: INR 0.94 (0.8-1.2)
[2023-10-02 03:04] LABS: Estmated Average Glucose 97
--- NOTE | 2023-10-02 03:06 | ECG_ITS ---
[facility] Test Date: 2023-10-02 Pat Name: Pauly Batres Department: Room: 276 Gender: Female Float Nurse: : 1990 Requested By: Asif Schwartz Order Number: [id number] Ari MD: Marcos Solis M.D. Measurements Intervals [place] Rate: 95 P: 80 [place]: 146 QRS: 88 QRSD: 82 T: 78 QT: 360 QTc: 453 Interpretive Statements SINUS RHYTHM Compared to ECG 07/30/2022 17:54:21 No significant changes Electronically Signed On 10-02-2023 17:43:41 CDT by Marcos Solis M.D. [id number]
[2023-10-02] MEDS: azithromycin 500 MG in sodium chloride 0.9% 250 ML 250 MG IV (03:07)
[2023-10-02] MEDS: sodium chloride 0.9% 1,000 ML 100 ML IV ×2 (03:07→13:36)
[2023-10-02 03:10] LABS: NT Pro B Type Natriuretic Pept 136 pg/mL (0-125); Procalcitonin 0.04 ng/mL (0-0.5); Thyroid Stimulating Hormone 0.42 uIU/mL (0.27-4.20)
[2023-10-02 03:29] LABS: C Reactive Protein 5.2 mg/L (0.0-4.9)
[2023-10-02 03:34] LABS: Amphetamines Screen Urine Negative (Negative); Barbiturates Screen Urine Negative (Negative); Benzodiazepines Screen Urine Negative (Negative); Cocaine Screen Urine Negative (Negative); Opiate Screen Urine Negative (Negative); PCP Screen Urine Negative (Negative); THC Screen Urine Positive (Negative)
[2023-10-02] MEDS: ipratropium-albuterol 3 mL Neb INHALATION ×5 (04:07→20:27)
--- NOTE | 2023-10-02 04:11 | ECG_ITS ---
[facility] Test Date: 2023-10-02 Pat Name: Pauly Batres Department: Room: 276 Gender: Female Managed Care Liaison: : 1990 Requested By: Asif Schwartz Order Number: [id number] Chapman MD: Marcos Solis M.D. Measurements Intervals [place] Rate: 111 P: 77 [place]: 116 QRS: 87 QRSD: 86 T: 72 QT: 339 QTc: 462 Interpretive Statements SINUS TACHYCARDIA WITH SHORT AK INTERVAL ABNORMAL RHYTHM ECG Compared to ECG 10/02/2023 03:06:27 Short AK interval now present Sinus rhythm no longer present Electronically Signed On 10-02-2023 18:04:00 CDT by Marcos Solis M.D. [email or web address] [email or web address].[email or web address]/store/[id number]
[2023-10-02 05:11] LABS: Adenovirus Not Detected (NOT DETECT); Chlamydia Pneumoniae Not Detected (NOT DETECT); Coronavirus 229E,HKU1,NL63,OC4 Not Detected (NOT DETECT); Human Metapneumovirus Not Detected (NOT DETECT); Human Rhinovirus/Enterovirus Detected (NOT DETECT); Influenza A Not Detected (NOT DETECT); Influenza A H1 Not Detected (NOT DETECT); Influenza A H1-2009 Not Detected (NOT DETECT); Influenza A H3 Not Detected (NOT DETECT); Influenza B Not Detected (NOT DETECT); Mycoplasma Pneumoniae Not Detected (NOT DETECT); Parainfluenza Virus Type 1 Not Detected (NOT DETECT); Parainfluenza Virus Type 2 Not Detected (NOT DETECT); Parainfluenza Virus Type 3 Not Detected (NOT DETECT); Parainfluenza Virus Type 4 Not Detected (NOT DETECT); Respiratory Syncytial Virus A Not Detected (NOT DETECT); Respiratory Syncytial Virus B Not Detected (NOT DETECT); SARS-COV-2 Not Detected (NOT DETECT)
[2023-10-02 05:29] LABS: Troponin(5th) Baseline 9 ng/L (0-10)
[2023-10-02] MEDS: pantoprazole 40 mg SDV IVP (05:47)
--- NOTE | 2023-10-02 08:11 | ECG_ITS ---
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 Measurements Intervals [place] Rate: 90 P: 80 [place]: 147 QRS: 88 QRSD: 86 T: 67 QT: 370 QTc: 454 Interpretive Statements SINUS RHYTHM WITH SINUS ARRHYTHMIA POSSIBLE LEFT ATRIAL ENLARGEMENT [-0.1mV P-WAVE IN V1/V2] Compared to ECG 10/02/2023 04:14:30 Sinus tachycardia no longer present Short MA interval no longer present Electronically Signed On 10-02-2023 18:07:42 CDT by Marcos Solis M.D. [email or web address].[id number]
[2023-10-02] MEDS: budesonide 0.5 mg/2 mL Neb INHALATION ×2 (08:48→20:27)
[2023-10-02] MEDS: methylPREDNISolone sod succ 40 mg/mL INJ IVP ×3 (08:59→21:02)
[2023-10-02] MEDS: guaiFENesin 100 mg/5 mL UDC 10 mL 200 MG PO ×2 (13:34→20:57)
[2023-10-02] MEDS: benzonatate 100 mg Capsule PO ×2 (13:36→20:57)
[2023-10-02] MEDS: nicotine 14 mg Patch 1 PATCH TRANSDERMA (14:01)
[2023-10-02] MEDS: ALPRAZolam 0.5 mg Tablet 0.25 MG PO (14:01)
[2023-10-02 14:06] LABS: Lactic Sepsis W/Reflex 3.9 mmol/L (0.5-2.2)
[2023-10-02] MEDS: magnesium hydroxide 30 mL UDC PO (14:06)
[2023-10-02 15:10] LABS: Reflex Lactate Order REFLEX LACTIC ORDERD
[2023-10-02 15:52] LABS: Basophils % 0.1 %; Hematocrit 42.4 % (36-47); Lymphocytes # 0.4 10^3/uL (0.8-4.8); Lymphocytes % 2.3 %; Mean Corpuscular HGB Conc 33.5 g/dL (30-55); Mean Corpuscular Volume 95.5 fl (85-98); Mean Platelet Volume 10.3 fL (7.4-10.4); Monocytes # 0.3 10^3/uL (0.2-0.9); Monocytes % 1.5 %; Neutrophils # 17.08 10^3/uL (1.8-7.7); Neutrophils % 95.4 %; Nucleated Red Blood Cells % 0 %; Platelet Count 222 10^3/cmm (157-399); Red Blood Count 4.44 10^6/uL (3.85-5.65); Red Cell Distribution Width 12.7 % (12.1-15.1)
[2023-10-02 16:11] LABS: Alanine Aminotransferase 8 U/L (0-33); Albumin Level 3.6 g/dL (3.5-5.2); Alkaline Phosphatase 58 U/L (35-105); Anion Gap 11.2 (5-19); Aspartate Amino Transferase 7 U/L (0-32); Blood Urea Nitrogen 9 mg/dL (6-20); Carbon Dioxide 22 mmol/L (22-29); Chloride 104 mmol/L (98-107); Creatinine Clr Calc Pharmacy 113.5535; Globulin 2.7 g/dL (1.3-4.6); Glomerular Filtration Rate 114.4 mL/min (90-130); Glucose 140 mg/dL (65-115); Osmolality Calculated 277 mOsm/kg (285-295); Potassium 4.2 mmol/L (3.5-5.1); Sodium 133 mmol/L (136-145); Total Bilirubin 0.2 mg/dL (0.15-1.2); Total Protein 6.3 g/dL (6.6-8.7)
[2023-10-03] VITALS (10 sets, daily range): BP systolic 97–124; BP diastolic 56–85; PULSE 78–103; RESP 16–18; TEMP 36.1–36.6; O2SAT 91–98
[2023-10-03] MEDS: ipratropium-albuterol 3 mL Neb INHALATION ×4 (00:02→11:09)
[2023-10-03] MEDS: sodium chloride 0.9% 1,000 ML 100 ML IV (00:43)
[2023-10-03] MEDS: methylPREDNISolone sod succ 40 mg/mL INJ IVP ×2 (02:16→10:43)
[2023-10-03] MEDS: cefTRIAXone 1,000 MG in sodium chloride 0.9% (plus) 50 ML 100 MG IV (02:37)
[2023-10-03] MEDS: guaiFENesin 100 mg/5 mL UDC 10 mL 200 MG PO (02:40)
[2023-10-03] MEDS: ALPRAZolam 0.5 mg Tablet 0.25 MG PO (02:40)
[2023-10-03] MEDS: pantoprazole 40 mg SDV IVP (05:45)
[2023-10-03 06:27] LABS: Basophils % 0.1 %; Hematocrit 41.3 % (36-47); Lymphocytes # 0.5 10^3/uL (0.8-4.8); Lymphocytes % 2.4 %; Mean Corpuscular HGB Conc 33.2 g/dL (30-55); Mean Corpuscular Hemoglobin 31.6 pg (27-33); Mean Corpuscular Volume 95.4 fl (85-98); Mean Platelet Volume 10.6 fL (7.4-10.4); Monocytes # 0.3 10^3/uL (0.2-0.9); Monocytes % 1.7 %; Neutrophils # 18.17 10^3/uL (1.8-7.7); Neutrophils % 95.1 %; Nucleated Red Blood Cells % 0 %; Platelet Count 224 10^3/cmm (157-399); Red Blood Count 4.33 10^6/uL (3.85-5.65); Red Cell Distribution Width 12.9 % (12.1-15.1)
[2023-10-03 06:46] LABS: Alanine Aminotransferase 7 U/L (0-33); Albumin Level 3.3 g/dL (3.5-5.2); Alkaline Phosphatase 56 U/L (35-105); Aspartate Amino Transferase 5 U/L (0-32); Blood Urea Nitrogen 9 mg/dL (6-20); Calcium 8.6 mg/dL (8.5-10.5); Carbon Dioxide 21 mmol/L (22-29); Chloride 105 mmol/L (98-107); Creatinine Clr Calc Pharmacy 115.8661; Globulin 2.6 g/dL (1.3-4.6); Glomerular Filtration Rate 114.4 mL/min (90-130); Glucose 185 mg/dL (65-115); Magnesium 1.8 mg/dL (1.7-2.3); Osmolality Calculated 285 mOsm/kg (285-295); Phosphorus 2.8 mg/dL (2.5-4.5); Sodium 136 mmol/L (136-145); Total Bilirubin 0.2 mg/dL (0.15-1.2); Total Protein 5.9 g/dL (6.6-8.7)
[2023-10-03 07:04] LABS: Add Urine Microscopic? NO; Charge for UA Resulting for Rev
[2023-10-03 07:44] LABS: Bilirubin Urine Neg (Negative); Blood Urine Neg (Negative); Glucose Urine UA Norm (Normal); Ketones Urine Negative (Negative); Leukocyte Esterase Urine Negative (Negative); Nitrate Urine Negative (Negative); Protein Urine Neg (Negative); Specific Gravity, Urine 1.005 (1.005-1.030); Sulfosalicylic Acid Urine Negative (Negative); Urine Appearance Clear (CLEAR); Urine Color Straw (Yellow); Urobilinogen Urine Neg (Negative); pH Urine 8 (5-7)
[2023-10-03] MEDS: budesonide 0.5 mg/2 mL Neb INHALATION (08:15)
--- NOTE | 2023-10-03 10:11 | PC.CHAP ---
Pastoral Care Encounter/Spiritual Assessment Type of Contact [] Declined drier operator visit [] Patient/Family/Request visit [] Outpatient visit [] Follow-up visit [] Physician referral [] Code/Alert [] Routine visit [] Staff referral [] Actively dying [] Patient sleeping [] Family support [] [] Out of room [] Palliative care [] [] Receiving care in room [] Pre-surgical visit [] Trauma [] Long length of stay [] ICU visit [x] Other:Covid precautions. No visit. Relational/Emotional Strength [] Patient feels connected with others/family/visitors/staff [] Distress [] Loneliness/isolation [] Abandonment Spirituality of Patient [] Person of Sarah Beth [] Attends Scientology of their Sarah Beth [] Believes in Prayer [] Reads Bible or Anabaptist materials [] There are Spiritual issues to be addressed Rod Welder Interventions [] Prayer [] Active listening [] Non-anxious presence [] Spiritual/emotional support [] Crisis/trauma care [] Spiritual counseling [] Bereavement support [] Provided bereavement packet [] Provided Bible/devotional materials [] Provided toy/stuffed animal, coloring book to patient or family member [] Provided Communion [] Anointing/[place] [] Salvation [] Completed spiritual assessment [] Other: Impact on Illness or Injury [] Angry [] Fearful [] Anxious [] Often cries [] Exhaustion [] Unable to work [] Unable to attend religion [] Unable to walk/stand [] Unable to read [] Unable to drive [] Unable to eat/drink [] Unable to sleep [] Unable to be with family [] Patient intubated [] Other: Summary Time spent with patient
[2023-10-03] MEDS: nicotine 14 mg Patch 1 PATCH TRANSDERMA (10:38)
[2023-10-03] MEDS: benzonatate 100 mg Capsule PO (10:39)
[2023-10-03] MEDS: azithromycin 250 mg Tablet 500 MG PO (10:39)
--- NOTE | 2023-10-03 11:17 | P.DS_ITS ---
Discharge Providers Date of Admission: 10/02/23 02:15 Date of Discharge: October 03, 2023 Attending Provider at Admission: Asif Schwartz MD Attending Provider at Discharge: Mo Sandra MD Primary Care Provider: Kwan Ambriz MD Diagnoses at Discharge Discharge Diagnosis (1) Acute hypoxemic respiratory failure: Status: Acute (2) Acute lung injury associated with nicotine vapor product use: Status: Acute (3) Elevated lactic acid level: Status: Acute (4) Right lower lobe pneumonia: Status: Acute (5) Sepsis: Status: Acute (6) Tachycardia: Status: Acute Reason for Visit Reason for Visit: Cough\SOB Brief History: History as per HPI: Pauly Batres is a 33 year old female with no significant past medical history, who presents [facility] due to shortness of breath, wheezing, cough. Patient tells me that she is a current vapor, she denies any drug use, he tells me that whenever she vapes, she feels short of breath she gets wheezing, but typically be episodes are quite short-lived. However today she does report vaping, and about at the same time she started developing shortness of breath, wheezing, chest tightness, productive cough, with subjective fevers, she does report that she has a child sick at home, 11 years old. She was seen at urgent care, given albuterol, prednisone however her symptoms continue to persist, she was having palpitations, shortness of breath, cough, wheezing, chest tightness so that prompted her to come to the emergency room. Hospital Course Hospital Course Patient was admitted to the hospital further evaluation and management of hypoxic respiratory failure in setting of vaping along with rhinovirus being positive on respiratory viral panel. She was started on supportive treatment with elation and steroid. She responded well to the treatment and has been off oxygen for more than 12 hours. Patient is been discharged in medically stable condition on steroid taper, elation treatment with strict advised to withhold vaping as possible. Physical Exam Const: COMMON NORMALS: no acute distress and patient oriented x3 HENMT: COMMON NORMALS: normocephalic HEAD & SCALP: normocephalic Eye: COMMON NORMALS: Equal, round and reactive pupils present PUPIL: Yes Equal, round and reactive pupils present Neck/C-Spine: COMMON NORMALS: no JVD Resp: COMMON NORMALS: normal respiratory effort, No retractions, No use of accessory muscles and clear to auscultation bilaterally AUSCULTATION: clear to auscultation bilaterally and wheezes Cardio: COMMON NORMALS: no JVD, regular rate, regular rhythm, S1 normal heart sound present and S2 normal heart sound present RATE: regular rate and tachycardic RHYTHM: regular rhythm HEART SOUNDS: S1 normal heart sound present and S2 normal heart sound present GI: COMMON NORMALS: Normal to inspection, nondistended, normoactive bowel sounds present, Soft to palpation, non-tender and No hepatosplenomegaly present PALPATION: Yes Soft to palpation and Yes No hepatosplenomegaly present Extremity: COMMON NORMALS: no calf tenderness and no pedal edema Neuro: COMMON NORMALS: patient oriented x3, CN's II-XII intact bilaterally and moves all extremities Psych: COMMON NORMALS: mental status grossly normal Discharge Data Studies Completed and Pending Completed Studies During Hospitalization Category Date Time Status CT angio chest PE protcl [id number] Urgent Cat Scan 10/01/23 23:28 Completed XR chest 1V portable [id number] Stat Exams 10/01/23 22:04 Completed Pending at discharge Category Date Time Status Blood Culture Stat Lab 10/02/23 02:09 Results Sputum Culture and Gram Stain Stat Lab 10/02/23 12:06 Uncollected Radiology Impressions Chest X-Ray 10/01/23 22:04 IMPRESSION: 1. No acute cardiopulmonary abnormality. Chest CTA 10/01/23 23:28 IMPRESSION: 1. Mild bronchitis in the right lower lobe. 2. No evidence of pulmonary embolism. Laboratory Results WBC 19.10 10^3/uL (3.29-11.43) H 10/03/23 06:00 RBC 4.33 10^6/uL (3.85-5.65) 10/03/23 06:00 Hgb 13.70 g/dL (11.27-16.99) 10/03/23 06:00 Hct 41.3 % (36-47) 10/03/23 06:00 MCV 95.4 fl (85-98) 10/03/23 06:00 MCH 31.6 pg (27-33) 10/03/23 06:00 MCHC 33.2 g/dL (30-55) 10/03/23 06:00 RDW 12.9 % (12.1-15.1) 10/03/23 06:00 Plt Count 224 10^3/cmm (157-399) 10/03/23 06:00 MPV 10.6 fL (7.4-10.4) H 10/03/23 06:00 Neut % (Auto) 95.1 % 10/03/23 06:00 Lymph % (Auto) 2.4 % 10/03/23 06:00 Coleman % (Auto) 1.7 % 10/03/23 06:00 Eos % (Auto) 0.0 % 10/03/23 06:00 Baso % (Auto) 0.1 % 10/03/23 06:00 Neut # (Auto) 18.17 10^3/uL (1.8-7.7) H 10/03/23 06:00 Lymph # (Auto) 0.5 10^3/uL (0.8-4.8) L 10/03/23 06:00 Coleman # (Auto) 0.3 10^3/uL (0.2-0.9) 10/03/23 06:00 Eos # (Auto) 0.0 10^3/uL (0.0-0.8) 10/03/23 06:00 Baso # (Auto) 0.0 10^3/uL (0.0-0.1) 10/03/23 06:00 Nucleated RBC % (auto) 0 % 10/03/23 06:00 Nucleated RBCs # 0.0 /100WBC 10/03/23 06:00 PT 12.90 SECONDS (12.1-14.9) 10/02/23 Unknown INR 0.94 (0.8-1.2) 10/02/23 Unknown D-Dimer 0.69 ug/mLFEU (0-0.59) H 10/01/23 22:22 Sodium 136 mmol/L (136-145) 10/03/23 06:00 Potassium 4.0 mmol/L (3.5-5.1) 10/03/23 06:00 Chloride 105 mmol/L (98-107) 10/03/23 06:00 Carbon Dioxide 21 mmol/L (22-29) L 10/03/23 06:00 Anion Gap 14.0 (5-19) 10/03/23 06:00 BUN 9 mg/dL (6-20) 10/03/23 06:00 Creatinine 0.6 mg/dL (0.5-0.9) 10/03/23 06:00 GFR Calculation 114.4 mL/min (90-130) 10/03/23 06:00 Glucose 185 mg/dL (65-115) H 10/03/23 06:00 Estimat Average Glucose 97 10/02/23 Unknown Hemoglobin A1c 5.0 % (4.0-6.0) 10/02/23 Unknown Calculated Osmolality 285 mOsm/kg (285-295) 10/03/23 06:00 Lactic Acid 3.9 mmol/L (0.5-2.2) H 10/02/23 13:10 Lactic Acid (Sepsis) 2.0 mmol/L (0.5-2.2) 10/02/23 15:39 Calcium 8.6 mg/dL (8.5-10.5) 10/03/23 06:00 Phosphorus 2.8 mg/dL (2.5-4.5) 10/03/23 06:00 Magnesium 1.8 mg/dL (1.7-2.3) 10/03/23 06:00 Total Bilirubin 0.2 mg/dL (0.15-1.2) 10/03/23 06:00 AST 5 U/L (0-32) 10/03/23 06:00 ALT 7 U/L (0-33) 10/03/23 06:00 Alkaline Phosphatase 56 U/L (35-105) 10/03/23 06:00 Troponin T Baseline 9 ng/L (0-10) 10/02/23 05:03 Troponin T 120 Minute 6.00 ng/L (0-10) 10/02/23 07:01 Delta Troponin T -3.00 ABS# (0-10) L 10/02/23 07:01 Troponin T Hi Sens 6Hr 6.00 ng/L (0-10) 10/02/23 10:58 Troponin T Hi Sens 6Hr Delta -3.00 ng/L (0-12) L 10/02/23 10:58 C-Reactive Protein 5.2 mg/L (0.0-4.9) H 10/02/23 Unknown NT-Pro-B Natriuret Pep 136 pg/mL (0-125) H 10/02/23 Unknown Total Protein 5.9 g/dL (6.6-8.7) L 10/03/23 06:00 Albumin 3.3 g/dL (3.5-5.2) L 10/03/23 06:00 Globulin 2.6 g/dL (1.3-4.6) 10/03/23 06:00 Procalcitonin 0.04 ng/mL (0-0.5) 10/02/23 Unknown TSH 0.42 uIU/mL (0.27-4.20) 10/02/23 Unknown HCG, Qual Negative (Negative) 10/01/23 22:22 Urine Color Straw (Yellow) 10/02/23 03:20 Urine Appearance Clear (CLEAR) 10/02/23 03:20 Urine pH 8 (5-7) H 10/02/23 03:20 Ur Specific [place] 1.005 (1.005-1.030) 10/02/23 03:20 Urine Protein Neg (Negative) 10/02/23 03:20 Urine Glucose (UA) Norm (Normal) 10/02/23 03:20 Urine Ketones Negative (Negative) 10/02/23 03:20 Urine Blood Neg (Negative) 10/02/23 03:20 Urine Nitrate Negative (Negative) 10/02/23 03:20 Urine Bilirubin Neg (Negative) 10/02/23 03:20 Prot Sulfosalicylic Acd Negative (Negative) 10/02/23 03:20 Urine Urobilinogen Neg mg/dL (Negative) 10/02/23 03:20 Ur Leukocyte Esterase Negative (Negative) 10/02/23 03:20 Urine Opiates Screen Negative ng/mL (Negative) 10/02/23 03:20 Ur Barbiturates Screen Negative ng/mL (Negative) 10/02/23 03:20 Ur Phencyclidine Scrn Negative ng/mL (Negative) 10/02/23 03:20 Ur Amphetamines Screen Negative ng/mL (Negative) 10/02/23 03:20 U Benzodiazepines Scrn Negative ng/mL (Negative) 10/02/23 03:20 Urine Cocaine Screen Negative ng/mL (Negative) 10/02/23 03:20 U Marijuana (THC) Screen Positive ng/mL (Negative) H 10/02/23 03:20 Adenovirus (PCR) Not detected (NOT DETECT) 10/02/23 02:15 C. pneumoniae DNA (PCR) Not detected (NOT DETECT) 10/02/23 02:15 Coronavirus 229E (PCR) Not detected (NOT DETECT) 10/02/23 02:15 Human Metapneumovir PCR Not detected (NOT DETECT) 10/02/23 02:15 Influenza A (H1) PCR Not detected (NOT DETECT) 10/02/23 02:15 Influ A (H1/09) PCR Not detected (NOT DETECT) 10/02/23 02:15 Influenza A (H3) PCR Not detected (NOT DETECT) 10/02/23 02:15 Influenza Type A (PCR) Not detected (NOT DETECT) 10/02/23 02:15 Influenza Type B (PCR) Not detected (NOT DETECT) 10/02/23 02:15 M. pneumoniae (PCR) Not detected (NOT DETECT) 10/02/23 02:15 Parainfluenza 1 (PCR) Not detected (NOT DETECT) 10/02/23 02:15 Parainfluenza 2 (PCR) Not detected (NOT DETECT) 10/02/23 02:15 Parainfluenza 3 (PCR) Not detected (NOT DETECT) 10/02/23 02:15 Parainfluenza 4 (PCR) Not detected (NOT DETECT) 10/02/23 02:15 RSV Type A (PCR) Not detected (NOT DETECT) 10/02/23 02:15 RSV Type B (PCR) Not detected (NOT DETECT) 10/02/23 02:15 Entero/Rhino (PCR) Detected (NOT DETECT) A 10/02/23 02:15 SARS-CoV-2 (PCR) Not detected (NOT DETECT) 10/02/23 02:15 Vitals Last Vital Signs Temp 97.0 F L 10/03/23 08:39 Pulse 87 10/03/23 11:10 Resp 16 10/03/23 11:10 BP 97/56 10/03/23 08:39 Pulse Ox 96 10/03/23 11:10 O2 Del Method Room Air 10/03/23 11:10 O2 Flow Rate 1 10/03/23 00:00 Discharge Plan Discharge Patient Disposition: Home Condition: Stable Prescriptions: New azithromycin 250 mg Tablet 500 mg PO DAILY Qty: 5 0RF budesonide 0.5 mg/2 mL Suspension For Nebulization 0.5 mg inhalation BID.RESPIRATORY Qty: 60 0RF ipratropium-albuterol 0.5 mg-3 mg(2.5 mg base)/3 mL Solution For Nebulization 3 ml inhalation Q6H 14 Days Qty: 90 0RF prednisone 10 mg tablet See Taper PO DIRECTED Qty: 42 0RF Taper: predniSONE 60-10 60 mg Daily for 2 Days and 0 Hour 50 mg Daily for 2 Days and 0 Hour 40 mg Daily for 2 Days and 0 Hour 30 mg Daily for 2 Days and 0 Hour 20 mg Daily for 2 Days and 0 Hour 10 mg Daily for 2 Days and 0 Hour Rx Instructions: see taper instructions Continued albuterol sulfate 90 mcg/actuation HFA aerosol inhaler 2 inh inhalation Q4H PRN (Reason: shortness of breath or wheezing) Qty: 6.7 0RF cetirizine [Zyrtec] 10 mg tablet 10 mg PO DAILY PRN (Reason: allergy symptoms) Qty: 30 0RF ibuprofen 800 mg tablet 800 mg PO Q8H PRN (Reason: pain) Qty: 20 0RF mupirocin 2 % ointment 1 applic topical DAILY Qty: 15 0RF Discontinued prednisone 20 mg tablet 40 mg PO DAILY 5 Days Qty: 10 0RF Discharge Orders: Discharge Order (Routine); Ordered 10/03/23 Ordered By: Mo Sandra Other Ambulatory Orders: DME: Nebulizer with Neb Kit (Order) Location: None Selected Ordered By: Mo Sandra Referrals: Kwan Ambriz MD [Primary Care Provider] - 10/13/23 2:00 pm Discharge Diet: Regular Discharge Activity: Resume usual activity and Increase activity as tolerated Patient Instructions: Ipratropium (By breathing), Prednisone (By mouth), Azithromycin (By mouth), Budesonide (By breathing), Pneumonia (GEN), Opioid Safety, Pneumonia Stoplight Activity Restrictions/Additional Instructions: Use nebulization treatment including DuoNeb every 6 hours along with Pulmicort twice daily for next 2 weeks. Steroid taper as prescribed. Try to avoid vaping or smoking going forward discussed in detail. Follow-up with a primary care provider within next 1 week. Discharge Attestations Time Spent in Discharge Care*: greater than 30 min Specific Discharge Activities: educating patient, discussing with pcp/other providers, discussing with piano case maker/social workers/dc planners, documenting/other paperwork and evaluating patient/reviewing data Time Spent in Smoking Cessation: more than 10 minutes Status at Discharge: Cognitive status at discharge: cognitively intact , Behavioral status at discharge: cooperative , Functional status at discharge: independent ambulation , Overall status at discharge: patient is back to baseline Quality Metrics Clinical Quality Measures [ No reported AMI, CVA or VTE this stay] Coding Level of Care Code 78117 Total time (in minutes) for Discharge: 60 Diagnoses Acute hypoxemic respiratory failure J96.01 Acute lung injury associated with nicotine vapor product use U07.0 Elevated lactic acid level R79.89 Right lower lobe pneumonia J18.9 Sepsis A41.9 Tachycardia R00.0
--- NOTE | 2023-10-03 11:53 | PC.SOCIAL ---
Nebulizer Order Pt discharging home. Pt has an order for a nebulizer. She was okay with using HOME. A choice letter filled out & placed in chart. Cyber access completed. Pre-Cert number assigned: [id number]. Faxed cyber access, notes & order to HOME. No other needs voiced for CM
== END 2023-10-03 13:52 | disposition home or self-care (01) | DRG 205 ==
LOC: ER 21:54 → MEDSURG 10-02 02:12
PROVIDERS: Admitting Provider Family Medicine; Emergency Provider Emergency Medicine; PCP Family Medicine; Visit Provider Student in an Organized Health Care Education/Training Program
DX: U07.0 Vaping-related disorder (principal); J18.9 Pneumonia, unspecified organism; J96.01 Acute respiratory failure with hypoxia; Z72.0 Tobacco use; B34.8 Other viral infections of unspecified site
CPT/HCPCS: 36415; 71045; 71275; 80048; 80053; 80306; 81003; 83036; 83605; 83735; 83880; 84100; 84145; 84443; 84484; 84703; 85025; 85378; 85610; 86140; 86403; 87040; 87449; 87486; 87581; 87633; 93005; 94640; 94664; 94760; 96365; 96367; 96375; 99285; C9113; J0456; J0696; J2919; J7030; J7050; J7120; J7626; Q0144; Q9967

== ENCOUNTER 2023-12-23 07:23 | Emergency (ER) | payer MEDICAID, SELFPAY ==
[2023-12-23 07:29] VITALS: BP 135/99; PULSE 103; RESP 18; TEMP 36.7; O2SAT 100
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
[2023-12-23] MEDS: LORazepam 2 mg Tablet PO (08:12)
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
[2023-12-23 13:23] VITALS: BP 135/99; PULSE 103; RESP 18; O2SAT 100
== END 2023-12-23 13:20 | disposition home or self-care (01) ==
PROVIDERS: Emergency Provider Family Medicine; PCP Family Medicine
DX: S20.312A Abrasion of left front wall of thorax, initial encounter (principal); Y04.2XXA Assault by strike against or bumped into by another person, initial encounter; T76.21XA Adult sexual abuse, suspected, initial encounter
CPT/HCPCS: 99283

== ENCOUNTER 2023-12-24 13:54 | Emergency (ER) | payer MEDICAID, SELFPAY ==
[2023-12-24 14:21] VITALS: BP 125/84; PULSE 102; RESP 17; TEMP 36.6; O2SAT 99; BMI 19.7
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
[2023-12-24 15:07] VITALS: BP 127/87; PULSE 88; RESP 15; O2SAT 99
[2023-12-24] MEDS: metoclopramide 5 mg/mL SDV 2 mL 10 MG IVP (15:27)
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
--- NOTE | 2023-12-24 15:29 | CTR_ITS ---
PROCEDURE INFORMATION: Exam: CT Head Without Contrast Exam date and time: 12/24/2023 3:42 PM Age: 33 years old Clinical indication: Pain; Headache; Additional info: Headache, head trauma TECHNIQUE: Imaging protocol: Computed tomography of the head without contrast. Radiation optimization: All CT scans at this facility use at least one of these dose optimization techniques: automated exposure control; mA and/or kV adjustment per patient size (includes targeted exams where dose is matched to clinical indication); or iterative reconstruction. COMPARISON: CT head wo con* [id number] 06/07/2022 3:20 AM RADIATION DOSE METRICS: Total DLP (mGy-cm): 1076.26 FINDINGS: Brain: There is caudal migration of bilateral cerebellar tonsils by 9 mm, consistent with Chiari 1 malformation. No recent infarct, intracranial bleed or mass effect. Cerebral ventricles: No ventriculomegaly. Paranasal sinuses: Visualized sinuses are unremarkable. No fluid levels. Mastoid air cells: Visualized mastoid air cells are well aerated. Bones: Unremarkable. No acute fracture. Soft tissues: Unremarkable. CT/CT head wo con* [id number] IMPRESSION: 1. No large territorial infarct or intracranial bleed. 2. Chiari 1 malformation with no hydrocephalus.
[2023-12-24] MEDS: ketorolac 30 mg/mL INJ IVP (15:31)
[2023-12-24 16:20] LABS: Basophils % 0.3 %; Eosinophils # 0.1 10^3/uL (0.0-0.8); Eosinophils % 1.1 %; Hematocrit 38.8 % (36-47); Lymphocytes # 1.8 10^3/uL (0.8-4.8); Lymphocytes % 16.8 %; Mean Corpuscular HGB Conc 34.5 g/dL (30-55); Mean Corpuscular Hemoglobin 32.2 pg (27-33); Mean Corpuscular Volume 93.3 fl (85-98); Mean Platelet Volume 9.8 fL (7.4-10.4); Monocytes # 0.7 10^3/uL (0.2-0.9); Monocytes % 6.4 %; Neutrophils % 74.9 %; Nucleated Red Blood Cells % 0 %; Platelet Count 223 10^3/cmm (157-399); Red Blood Count 4.16 10^6/uL (3.85-5.65); Red Cell Distribution Width 12.6 % (12.1-15.1); White Blood Count 10.41 10^3/uL (3.29-11.43)
[2023-12-24 16:38] LABS: Alanine Aminotransferase 6 U/L (0-33); Albumin Level 3.9 g/dL (3.5-5.2); Alkaline Phosphatase 67 U/L (35-105); Anion Gap 15.1 (5-19); Aspartate Amino Transferase 5 U/L (0-32); Blood Urea Nitrogen 8 mg/dL (6-20); Calcium 8.5 mg/dL (8.5-10.5); Carbon Dioxide 21 mmol/L (22-29); Chloride 106 mmol/L (98-107); Creatinine Clr Calc Pharmacy 111.9684; Globulin 2.4 g/dL (1.3-4.6); Glomerular Filtration Rate 114.4 mL/min (90-130); Glucose 89 mg/dL (65-115); Osmolality Calculated 284 mOsm/kg (285-295); Potassium 4.1 mmol/L (3.5-5.1); Sodium 138 mmol/L (136-145); Total Bilirubin 0.4 mg/dL (0.15-1.2); Total Protein 6.3 g/dL (6.6-8.7)
== END 2023-12-24 17:02 | disposition home or self-care (01) ==
PROVIDERS: Emergency Provider Family Medicine; PCP Family Medicine
DX: R51.9 Headache, unspecified (principal); S13.4XXA Sprain of ligaments of cervical spine, initial encounter; R03.0 Elevated blood-pressure reading, without diagnosis of hypertension; Y04.2XXA Assault by strike against or bumped into by another person, initial encounter
CPT/HCPCS: 70450; 72040; 80053; 85025; 96374; 96375; 99285; J1885; J2765

== ENCOUNTER → 2024-02-06 12:16 | Outpatient (BNVA) | payer MEDICAID, SELFPAY | PROVIDERS: PCP Family Medicine; Visit Provider Obstetrics & Gynecology | DX: N92.6 Irregular menstruation, unspecified (principal) | CPT/HCPCS: 76830 ==

== ENCOUNTER 2024-05-29 16:55 | Emergency (ER) | payer SELFPAY ==
[2024-05-29 17:07] VITALS: BP 120/87; PULSE 109; RESP 14; TEMP 36.8; O2SAT 99; BMI 21.9
--- NOTE | 2024-05-29 17:14 | ECG_ITS ---
[facility] Test Date: 2024-05-29 Pat Name: Pauly Batres Department: Room: Gender: Female Consumer Sales Representative: : 1990 Requested By: Homero Tripp Order Number: [id number] Ari MD: Marcos Solis M.D. Measurements Intervals [place] Rate: 97 P: 78 FL: 137 QRS: 90 QRSD: 85 T: 36 QT: 338 QTc: 431 Interpretive Statements SINUS RHYTHM Compared to ECG 10/02/2023 08:31:40 Sinus arrhythmia no longer present Electronically Signed On 05-29-2024 17:20:49 SHEET [employer] PRINTER by Marcos Solis M.D. [email or web address]
--- NOTE | 2024-05-29 19:37 | XRR_ITS ---
PROCEDURE INFORMATION: Exam: XR Chest Exam date and time: 05/29/2024 8:08 PM Age: 34 years old Clinical indication: Shortness of breath; Additional info: Shortness of breath. Shield please TECHNIQUE: Imaging protocol: Radiologic exam of the chest. Views: 1 view. COMPARISON: CT angio chest PE protcl [id number] 10/01/2023 11:44 PM FINDINGS: Lungs: Unremarkable. No consolidation. Pleural spaces: Unremarkable. No pleural effusion. No pneumothorax. Heart/Mediastinum: Unremarkable. No cardiomegaly. Bones/joints: Unremarkable. XR/XR chest 1V portable [id number] IMPRESSION: No acute findings.
[2024-05-29 20:22] LABS: Bilirubin Urine Negative (Negative); Blood Urine Negative (Negative); Glucose Urine UA Negative (Normal); Ketones Urine Trace (Negative); Leukocyte Esterase Urine 1+ (Negative); Nitrate Urine Negative (Negative); Protein Urine Negative (Negative); Specific Gravity, Urine 1.028 (1.005-1.030); Urine Appearance Clear (CLEAR); Urine Color Yellow (Yellow); pH Urine 5.5 (5-7)
[2024-05-29 20:23] LABS: Basophils # 0.1 10^3/uL (0.0-0.1); Basophils % 0.6 %; Eosinophils # 0.2 10^3/uL (0.0-0.8); Eosinophils % 2.6 %; Hematocrit 43.9 % (36-47); Lymphocytes # 2.1 10^3/uL (0.8-4.8); Lymphocytes % 23.7 %; Mean Corpuscular HGB Conc 33.3 g/dL (30-55); Mean Corpuscular Volume 93.2 fl (85-98); Mean Platelet Volume 9.8 fL (7.4-10.4); Monocytes # 0.6 10^3/uL (0.2-0.9); Monocytes % 7.3 %; Neutrophils # 5.74 10^3/uL (1.8-7.7); Neutrophils % 65.3 %; Nucleated Red Blood Cells % 0 %; Platelet Count 283 10^3/cmm (157-399); Red Blood Count 4.71 10^6/uL (3.85-5.65); Red Cell Distribution Width 12.2 % (12.1-15.1); White Blood Count 8.78 10^3/uL (3.29-11.43)
[2024-05-29 20:24] LABS: Bacteria Urine None Seen /hpf; Hyaline Casts Urine 2.87 /lpf; RBC Urine 0-2 /hpf (0-2); WBC Urine 21-50 /hpf (0-5)
[2024-05-29 20:27] LABS: Add Urine Culture? Yes
--- NOTE | 2024-05-29 20:35 | ED_ITS ---
HPI - Dizziness 2 General: Chief Complaint: Dizziness Stated Complaint: high heart rate/bp Time Seen by Provider: 05/29/24 17:23 History of Present Illness: HPI Narrative: 34-year-old female with history of anxie ty who presents the emergency room with shortness of breath all day today. She says she found out she was yesterday. She says this does not feel like her normal anxiety. She has had some mild cough. No chest pain. No abdominal pain. No nausea or vomiting. She had she has had some mild pelvic cramping feelings. No vaginal bleeding. She is unsure how far along she would be if . Related Data Previous Rx's Medication Instructions Recorded albuterol sulfate 90 mcg/actuation 2 inh inhalation Q4H PRN shortness 12/10/22 aerosol inhaler of breath or wheezing #6.7 grams cefdinir 300 mg capsule 300 mg PO BID 5 days #10 caps 05/29/24 Allergies Allergy/AdvReac Type Severity Reaction Status Date / Time sulfadiazine Allergy Mild Nausea Verified 05/29/24 17:13 aspirin Allergy Unknown Unknown Verified 05/29/24 17:13 Penicillins Allergy Unknown Unknown Verified 05/29/24 17:13 Review of Systems 2 Narrative: Constitutional symptoms: Negative except as documented in HPI. Skin symptoms: Negative except as documented in HPI. Eye symptoms: Negative except as documented in HPI. ENMT symptoms: Negative except as documented in HPI. Respiratory symptoms: Negative except as documented in HPI. Cardiovascular symptoms: Negative except as documented in HPI. Gastrointestinal symptoms: Negative except as documented in HPI. Genitourinary symptoms: Negative except as documented in HPI. Musculoskeletal symptoms: Negative except as documented in HPI. Neurologic symptoms: Negative except as documented in HPI. Psychiatric symptoms: Negative except as documented in HPI. Endocrine symptoms: Negative except as documented in HPI. PFSH ED 2 PFSH: Medical History Acute bronchitis due to Rhinovirus No pertinent past medical history neghx: htn,dm,thyroid,dvt/pe PCP: Dr. Alba Generalized abdominal pain Anxiety with depression Surgical History H/O LEEP x2 at ages 15 and 16 years old Family History Grandmother Breast cancer Maternal grandmother--dx'd in her 60s Ovarian cancer Maternal grandmother---dx age unknown Son Diabetes Type 1 Family history of thyroid problem Mother Hypertension Hyperlipidemia Heart disease Father Family history of thyroid problem Denies family history of Colon cancer Uterine cancer Stroke Social History Smoking and tobacco/nicotine status: current every day tobacco/nicotine user Female Reproductive History: Date of last menstrual period: 04/05/24 Physical Exam 2 Narrative: EXAM NARRATIVE: General: Alert, no acute distress. Skin: Warm, dry. Head: Normocephalic, atraumatic. Neck: Supple, trachea midline. Eye: Extraocular movements are intact. Ears, nose, mouth and throat: mucosa moist. Cardiovascular: Regular, Normal peripheral perfusion. Respiratory: Lungs are clear to auscultation, respirations are non-labored, breath sounds are equal, Symmetrical chest wall expansion. Gastrointestinal: Soft, Nontender, Non distended Musculoskeletal: Normal ROM, no deformity. Neurological: Alert and oriented, No focal neurological deficit observed. Psychiatric: Cooperative, patient does appear a bit anxious. Wringing hands. Course 2 Vital Signs: Vital signs: Vital Signs Temperature 98.2 F 05/29/24 17:07 Pulse Rate 109 H 05/29/24 17:07 Respiratory Rate 14 05/29/24 17:07 Blood Pressure 120/87 05/29/24 17:07 Pulse Oximetry 99 05/29/24 17:07 MDM - Dizziness Medical Decision Making Differential diagnosis for patient with shortness of breath includes but is not limited to and based on the above HPI, review of systems and physical exam: Pneumonia. Bronchitis. Asthma or COPD with acute exacerbation. Acute coronary syndrome / AR. Pulmonary embolism. Anxiety. Congestive heart failure. Viral infections including influenza and Covid-19. Atrial fibrillation. Anxiety. Pleural effusion. Pneumothorax. Orders placed to evaluate differential diagnosis based on the above differential, HPI and physical exam EKG: Time 1715. Rate 97. Normal sinus rhythm, No ST-T changes, no ectopy, normal ME & QRS intervals, This was reviewed and interpreted by the ER physician at 1717 Chest x-ray: No acute process. No infiltrate. No pneumothorax. This was reviewed and interpreted by myself the emergency room physician. I also reviewed the radiology report. Lab Review: Laboratory results were reviewed and interpreted by myself the emergency room physician. No leukocytosis. No anemia. No renal failure. Patient is with a quant of 850. Urinalysis shows 21-50 whites for this is likely a true urinary tract infection and she has had increased urinary frequency. I reviewed the patient's medical record. Reexamination: Patient remained stable. No increased work of breathing. No altered mental status. No focal motor deficits. Assessment and plan: Urinary tract infection Anxiety ?IV Rocephin in the emergency room. - Discharged home - Discussed findings and plan with patient. Answered any questions. - All laboratory values were reviewed and interpreted personally by myself, the ER physician - All imaging was reviewed and interpreted personally by myself, the ER physician. - Evaluation and treatment of this problem were appropriate in the emergency setting Lab Data 05/29/24 20:06 05/29/24 20:06 Radiology Impressions Chest X-Ray 05/29/24 19:37 IMPRESSION: No acute findings. Laboratory Results WBC 8.78 10^3/uL (3.29-11.43) 05/29/24 20:06 RBC 4.71 10^6/uL (3.85-5.65) 05/29/24 20:06 Hgb 14.60 g/dL (11.27-16.99) 05/29/24 20:06 Hct 43.9 % (36-47) 05/29/24 20:06 MCV 93.2 fl (85-98) 05/29/24 20:06 MCH 31.0 pg (27-33) 05/29/24 20:06 MCHC 33.3 g/dL (30-55) 05/29/24 20:06 RDW 12.2 % (12.1-15.1) 05/29/24 20:06 Plt Count 283 10^3/cmm (157-399) 05/29/24 20:06 MPV 9.8 fL (7.4-10.4) 05/29/24 20:06 Neut % (Auto) 65.3 % 05/29/24 20:06 Lymph % (Auto) 23.7 % 05/29/24 20:06 [place] % (Auto) 7.3 % 05/29/24 20:06 Eos % (Auto) 2.6 % 05/29/24 20:06 Baso % (Auto) 0.6 % 05/29/24 20:06 Neut # (Auto) 5.74 10^3/uL (1.8-7.7) 05/29/24 20:06 Lymph # (Auto) 2.1 10^3/uL (0.8-4.8) 05/29/24 20:06 [place] # (Auto) 0.6 10^3/uL (0.2-0.9) 05/29/24 20:06 Eos # (Auto) 0.2 10^3/uL (0.0-0.8) 05/29/24 20:06 Baso # (Auto) 0.1 10^3/uL (0.0-0.1) 05/29/24 20:06 Nucleated RBC % (auto) 0 % 05/29/24 20:06 Nucleated RBCs # 0.0 /100WBC 05/29/24 20:06 Sodium 134 mmol/L (136-145) L 05/29/24 20:06 Potassium 3.5 mmol/L (3.5-5.1) 05/29/24 20:06 Chloride 102 mmol/L (98-107) 05/29/24 20:06 Carbon Dioxide 21 mmol/L (22-29) L 05/29/24 20:06 Anion Gap 14.5 (5-19) 05/29/24 20:06 BUN 10 mg/dL (6-20) 05/29/24 20:06 Creatinine 0.6 mg/dL (0.5-0.9) 05/29/24 20:06 GFR Calculation 113.8 mL/min (90-130) 05/29/24 20:06 Glucose 88 mg/dL (65-115) 05/29/24 20:06 Calculated Osmolality 276 mOsm/kg (285-295) L 05/29/24 20:06 Lactic Acid 0.7 mmol/L (0.5-2.2) 05/29/24 20:33 Calcium 9.1 mg/dL (8.5-10.5) 05/29/24 20:06 Total Bilirubin 0.8 mg/dL (0.15-1.2) 05/29/24 20:06 AST 6 U/L (0-32) 05/29/24 20:06 ALT 7 U/L (0-33) 05/29/24 20:06 Alkaline Phosphatase 65 U/L (35-105) 05/29/24 20:06 Total Protein 7.2 g/dL (6.6-8.7) 05/29/24 20: Albumin 4.2 g/dL (3.5-5.2) 05/29/24 20: Globulin 3.0 g/dL (1.3-4.6) 05/29/24 20:06 Ser , Semi-Qnt 865.20 mIU/mL 05/29/24 20:06 Urine Color Yellow (Yellow) 05/29/24 20: Urine Appearance Clear (CLEAR) 05/29/24 20: Urine pH 5.5 (5-7) 05/29/24 20: Ur Specific [place] 1.028 (1.005-1.030) 05/29/24 20:09 Urine Protein Negative (Negative) 05/29/24 20:09 Urine Glucose (UA) Negative (Normal) 05/29/24 20:09 Urine Ketones Trace (Negative) 05/29/24 20:09 Urine Blood Negative (Negative) 05/29/24 20:09 Urine Nitrate Negative (Negative) 05/29/24 20:09 Urine Bilirubin Negative (Negative) 05/29/24 20: Urine Urobilinogen 1.0 mg/dL (Negative) 05/29/24 20:09 Ur Leukocyte Esterase 1+ (Negative) A 05/29/24 20:09 Urine RBC 0-2 /hpf (0-2) 05/29/24 20:09 Urine WBC 21-50 /hpf (0-5) H 05/29/24 20:09 Ur Squamous Epith Cells 6-10 /hpf (0-5) 05/29/24 20:09 Amorphous Sediment Not Reportable 05/29/24 20:09 Urine Bacteria None seen /hpf (NONE) 05/29/24 20:09 Hyaline Casts 2.87 /lpf 05/29/24 20:09 All radiology interpretation(s) finalized by discharge Discharge Plan Discharge Patient Disposition: Home Clinical Impression: UTI (urinary tract infection), , Shortness of breath Condition: Stable Prescriptions: New cefdinir 300 mg capsule 300 mg PO BID 5 Days Qty: 10 0RF No Action albuterol sulfate 90 mcg/actuation HFA aerosol inhaler 2 inh inhalation Q4H PRN (Reason: shortness of breath or wheezing) Qty: 6.7 0RF Discharge Orders: Discharge ED (Routine); Ordered 05/29/24 Ordered By: Riddhi Foster Referrals: Kwan Ambriz MD [Primary Care Provider] - Discharge Diet: Usual diet Discharge Activity: Increase activity as tolerated Patient Instructions: Urinary Tract Infection in (ED), Opioid Safety, Pain Management Activity Restrictions/Additional Instructions: Thank you for choosing [facility] for your healthcare needs today. Please realize this is an emergency room and that we are providing you with a medical screening exam and this may not be complete and all inclusive of all the testing and or work up that you may need to determine your ailment or severity of your illness. You have been screened and evaluated and felt safe for discharge. Health conditions do change or evolve sometimes and as such it is important that you follow up with your Primary Doctor to be re checked, 3-5 days is a general good time frame for follow up. You are always welcome to return to the ED for re assessment if your symptoms are worsening or you have new concerns Coding Level of Care Code ED Thread Puller for Kwame Herrera
[2024-05-29 20:46] LABS: Alanine Aminotransferase 7 U/L (0-33); Albumin Level 4.2 g/dL (3.5-5.2); Alkaline Phosphatase 65 U/L (35-105); Anion Gap 14.5 (5-19); Aspartate Amino Transferase 6 U/L (0-32); Blood Urea Nitrogen 10 mg/dL (6-20); Calcium 9.1 mg/dL (8.5-10.5); Carbon Dioxide 21 mmol/L (22-29); Chloride 102 mmol/L (98-107); Creatinine Clr Calc Pharmacy 115.7853; Glomerular Filtration Rate 113.8 mL/min (90-130); Glucose 88 mg/dL (65-115); Osmolality Calculated 276 mOsm/kg (285-295); Potassium 3.5 mmol/L (3.5-5.1); Sodium 134 mmol/L (136-145); Total Bilirubin 0.8 mg/dL (0.15-1.2); Total Protein 7.2 g/dL (6.6-8.7)
[2024-05-29 20:56] LABS: Lactic Sepsis W/Reflex 0.7 mmol/L (0.5-2.2)
[2024-05-29] MEDS: cefTRIAXone 1,000 mg SDV 1000 MG IVP (21:24)
[2024-05-29 23:18] VITALS: BP 116/83; PULSE 84; RESP 18; O2SAT 96
[2024-05-29 23:26] LABS: Adenovirus Not Detected (NOT DETECT); Chlamydia Pneumoniae Not Detected (NOT DETECT); Coronavirus 229E,HKU1,NL63,OC4 Not Detected (NOT DETECT); Human Metapneumovirus Not Detected (NOT DETECT); Human Rhinovirus/Enterovirus Not Detected (NOT DETECT); Influenza A Not Detected (NOT DETECT); Influenza A H1 Not Detected (NOT DETECT); Influenza A H1-2009 Not Detected (NOT DETECT); Influenza A H3 Not Detected (NOT DETECT); Influenza B Not Detected (NOT DETECT); Mycoplasma Pneumoniae Not Detected (NOT DETECT); Parainfluenza Virus Type 1 Not Detected (NOT DETECT); Parainfluenza Virus Type 2 Not Detected (NOT DETECT); Parainfluenza Virus Type 3 Not Detected (NOT DETECT); Parainfluenza Virus Type 4 Not Detected (NOT DETECT); Respiratory Syncytial Virus A Not Detected (NOT DETECT); Respiratory Syncytial Virus B Not Detected (NOT DETECT); SARS-COV-2 Not Detected (NOT DETECT)
== END 2024-05-29 22:15 | disposition home or self-care (01) ==
PROVIDERS: Emergency Provider Emergency Medicine; PCP Family Medicine
DX: N39.0 Urinary tract infection, site not specified (principal); R06.02 Shortness of breath; Z72.0 Tobacco use
CPT/HCPCS: 36415; 71045; 80053; 81001; 83605; 84702; 85025; 87077; 87086; 87186; 87486; 87581; 87633; 93005; 96374; 99285; J0696

== ENCOUNTER 2024-06-02 17:41 | Emergency (ER) | payer SELFPAY ==
[2024-06-02 18:00] VITALS: BP 149/89; PULSE 82; RESP 16; TEMP 36.6; O2SAT 99; BMI 21.6
[2024-06-02 19:36] LABS: Basophils % 0.4 %; Eosinophils # 0.2 10^3/uL (0.0-0.8); Eosinophils % 2.1 %; Hematocrit 44.2 % (36-47); Lymphocytes # 1.6 10^3/uL (0.8-4.8); Lymphocytes % 23.2 %; Mean Corpuscular HGB Conc 33.3 g/dL (30-55); Mean Corpuscular Hemoglobin 31.1 pg (27-33); Mean Corpuscular Volume 93.6 fl (85-98); Mean Platelet Volume 10.2 fL (7.4-10.4); Monocytes # 0.6 10^3/uL (0.2-0.9); Monocytes % 8.2 %; Neutrophils # 4.64 10^3/uL (1.8-7.7); Neutrophils % 65.7 %; Nucleated Red Blood Cells % 0 %; Platelet Count 260 10^3/cmm (157-399); Red Blood Count 4.72 10^6/uL (3.85-5.65); White Blood Count 7.07 10^3/uL (3.29-11.43)
--- NOTE | 2024-06-02 20:34 | USR_ITS ---
PROCEDURE INFORMATION: Exam: US First Trimester, Transabdominal and US , Transvaginal Exam date and time: 06/02/2024 9:38 PM Age: 34 years old Clinical indication: Lmp or gestational age (in weeks): Gs 5w2d; Antepartum complications; Bleeding; Prior surgery; Surgery date: 6+ months; Surgery type: H/o leep; Additional info: Vaginal bleeding, LABS AND CLINICAL REPORTS: Last menstrual period start date: 05/04/2024 Gestational age (Established): 4 w 1 d Estimated due date (Established): 02/08/2025 TECHNIQUE: Imaging protocol: Real-time transabdominal obstetrical ultrasound of the maternal pelvis and a first trimester , less than 14 weeks 0 days, with image documentation. Transvaginal imaging was used for better evaluation of the fetus, adnexa, and/or cervix. COMPARISON: US transvaginal [id number] 02/06/2024 12:24 PM FINDINGS: GESTATION: Gestation: Single intrauterine gestational sac. Yolk sac not definitively visualized. Two echogenic lines within the gestational sac which could represent yolk sac or a pole. Embryo/ cardiac activity (BPM): Not detected Extra-embryonic membranes/Placenta: Crescentic hypodensity adjacent to the gestational sac measuring 1.1 x 0.5 x 1.0 cm. Amniotic/Chorionic fluid: Amniotic and extra-amniotic fluid are normal for gestational age. BIOMETRY: Gestational age (AUA): 5 weeks 2 days based on average gestational sac diameter Mean sac diameter: 0.6 cm. EGA (MSD) is 5 w 2 d MATERNAL: Uterus: Unremarkable. Cervix: Cervical length measures 3.8 cm. Right ovary/adnexa: Right ovary measures 2.1 x 1.5 x 2.1 cm (3.5 mL). Small cyst in the right ovary measuring up to 0.8 cm. Normal vascular waveforms. Left ovary/adnexa: Left ovary measures 2.4 x 2.3 x 3.7 cm (10.6 mL). Small left ovarian cyst measuring up to 1.2 cm. Normal vascular waveforms. Intraperitoneal space: Trace fluid in the cul-de-sac. US/US OB <=14 wk fetus w transvag IMPRESSION: 1. Intrauterine gestational sac with no definite pole and no heart rate detected, possibly too early for dates. Recommend correlation with beta HCG levels and short interval follow-up imaging as clinically warranted. 2. Likely small subchorionic hemorrhage.
--- NOTE | 2024-06-02 20:51 | W.ED.FEMALGU ---
HPI - Female Genitourinary General: Chief complaint: Vaginal Bleeding Stated complaint: 7 wks , cramping & bleeding Time Seen by Provider: 06/02/24 19:44 History of Present Illness: 34-year-old female G2, P1. She presents at around 4 to 6 weeks of with cramping and bleeding that started today. She says there was not a lot of blood, but the cramping was significant. No fever. Some clear discharge otherwise. She is currently being treated for a urinary tract infection. She has been on antibiotics for a couple of days. No significant vomiting. Related Data Previous Rx's Medication Instructions Recorded albuterol sulfate 90 mcg/actuation 2 inh inhalation Q4H PRN shortness 12/10/22 aerosol inhaler of breath or wheezing #6.7 grams cefdinir 300 mg capsule 300 mg PO BID 5 days #10 caps 05/29/24 Allergies Allergy/AdvReac Type Severity Reaction Status Date / Time sulfadiazine Allergy Mild Nausea Verified 06/02/24 18:03 aspirin Allergy Unknown Unknown Verified 06/02/24 18:03 Penicillins Allergy Unknown Unknown Verified 06/02/24 18:03 PFSH ED PFSH: Medical History Acute bronchitis due to Rhinovirus No pertinent past medical history neghx: htn,dm,thyroid,dvt/pe PCP: Dr. Alba Generalized abdominal pain Anxiety with depression Surgical History H/O LEEP x2 at ages 15 and 16 years old Family History Grandmother Breast cancer Maternal grandmother--dx'd in her 60s Ovarian cancer Maternal grandmother---dx age unknown Son Diabetes Type 1 Family history of thyroid problem Mother Hypertension Hyperlipidemia Heart disease Father Family history of thyroid problem Denies family history of Colon cancer Uterine cancer Stroke Social History Smoking and tobacco/nicotine status: current every day tobacco/nicotine user Physical Exam Const: COMMON NORMALS: no acute distress GENERAL APPEARANCE: cooperative; not ill appearing and not frail appearing HENMT: COMMON NORMALS: normocephalic, atraumatic and Normal external nose present HEAD & SCALP: normocephalic and atraumatic FACE & SINUS: normal facial exam and face symmetric NOSE: Normal external nose present Eye: COMMON NORMALS: Equal, round and reactive pupils present and EOMs intact bilaterally PUPIL: Yes Equal, round and reactive pupils present Neck/C-Spine: GENERAL: Yes trachea midline Chest: CHEST: Yes Symmetrical chest wall rise Resp: COMMON NORMALS: normal respiratory effort, No retractions, No use of accessory muscles and clear to auscultation bilaterally AUSCULTATION: clear to auscultation bilaterally Cardio: COMMON NORMALS: regular rate and regular rhythm RATE: regular rate RHYTHM: regular rhythm GI: COMMON NORMALS: Normal to inspection, nondistended, normoactive bowel sounds present Extremity: COMMON NORMALS: no pedal edema Neuro: NESTOR COMA SCALE: document GCS findings Nestor coma scale eye opening: Spontaneous Nestor coma scale verbal response: Orientated Donaldson coma scale motor response: Obey commands Donaldson coma scale total score: 15 SENSORY EXAM: Yes extremities (intact) Psych: COMMON NORMALS: speech normal SPEECH: Yes normal speech Skin: COMMON NORMALS: no rashes or lesions noted GENERAL SKIN EXAM: no rashes or lesions noted Course Vital Signs: Vital signs: Vital Signs Temperature 97.9 F 06/02/24 18:00 Pulse Rate 56 L 06/02/24 21:30 Respiratory Rate 16 06/02/24 21:30 Blood Pressure 101/72 06/02/24 21:30 Pulse Oximetry 98 06/02/24 21:30 Oxygen Delivery Me thod Room Air 06/02/24 21:30 MDM - Female Medical Decision Making Bedside ultrasound reveals no definite uterine gestational sac. Her quant is 4400. Consistent with her dates. Formal study has been ordered. Laboratory is normal otherwise.. Ultrasound consistent with a gestational sac measuring 5 weeks 2 days. Subchorionic hemorrhage is present. No definite pole is noted. Likely too early. Results explained to the patient, as well as need for follow-up, follow-up quantitative hCG testing, and potential need for follow-up ultrasound. She will call her doctor in the morning. She will return for problems. Lab Data 06/02/24 19:05 Radiology Impressions Obstetrics Ultrasound 06/02/24 20:34 IMPRESSION: 1. Intrauterine gestational sac with no definite pole and no heart rate detected, possibly too early for dates. Recommend correlation with beta HCG levels and short interval follow-up imaging as clinically warranted. 2. Likely small subchorionic hemorrhage. Laboratory Results WBC 7.07 10^3/uL (3.29-11.43) 06/02/24 19:05 RBC 4.72 10^6/uL (3.85-5.65) 06/02/24 19:05 Hgb 14.70 g/dL (11.27-16.99) 06/02/24 19:05 Hct 44.2 % (36-47) 06/02/24 19:05 MCV 93.6 fl (85-98) 06/02/24 19:05 MCH 31.1 pg (27-33) 06/02/24 19:05 MCHC 33.3 g/dL (30-55) 06/02/24 19:05 RDW 12.0 % (12.1-15.1) L 06/02/24 19:05 Plt Count 260 10^3/cmm (157-399) 06/02/24 19:05 MPV 10.2 fL (7.4-10.4) 06/02/24 19:05 Neut % (Auto) 65.7 % 06/02/24 19:05 Lymph % (Auto) 23.2 % 06/02/24 19:05 [place] % (Auto) 8.2 % 06/02/24 19:05 Eos % (Auto) 2.1 % 06/02/24 19:05 Baso % (Auto) 0.4 % 06/02/24 19:05 Neut # (Auto) 4.64 10^3/uL (1.8-7.7) 06/02/24 19:05 Lymph # (Auto) 1.6 10^3/uL (0.8-4.8) 06/02/24 19:05 [place] # (Auto) 0.6 10^3/uL (0.2-0.9) 06/02/24 19:05 Eos # (Auto) 0.2 10^3/uL (0.0-0.8) 06/02/24 19:05 Baso # (Auto) 0.0 10^3/uL (0.0-0.1) 06/02/24 19:05 Nucleated RBC % (auto) 0 % 06/02/24 19:05 Nucleated RBCs # 0.0 /100WBC 06/02/24 19:05 Ser , Semi-Qnt 4334.00 mIU/mL 06/02/24 19:05 Blood Type Cancelled 06/02/24 19:08 Rho(D) Type Cancelled 06/02/24 19:08 Antibody Screen Cancelled 06/02/24 19:08 All radiology interpretation(s) finalized by discharge Discharge Plan Discharge Patient Disposition: Home Clinical Impression: Threatened , Subchorionic hemorrhage in first trimester Condition: Stable Prescriptions: No Action albuterol sulfate 90 mcg/actuation HFA aerosol inhaler 2 inh inhalation Q4H PRN (Reason: shortness of breath or wheezing) Qty: 6.7 0RF cefdinir 300 mg capsule 300 mg PO BID 5 Days Qty: 10 0RF Discharge Orders: Discharge ED (Routine); Ordered 06/02/24 Ordered By: Doug Aviles Referrals: Kwan Ambriz MD [Primary Care Provider] - 1-3 days Patient Instructions: Threatened Miscarriage (ED), Subchorionic Hemorrhage (ED), Opioid Safety, Pain Management Activity Restrictions/Additional Instructions: Limit lifting to 10 pounds until cleared by your doctor. Limit squatting and climbing. No sexual intercourse. Return to the emergency department for brisk vaginal bleeding, soaking 1 pad per hour for more than 3 hours, fever, vomiting, other concerning symptoms. See your doctor next week. He will likely require a repeatYou quantitative test to ensure it is increasing appropriately. Coding Level of Care Code ED Instructor Apparel Manufacture for Kwame Herrera
[2024-06-02 20:54] VITALS: BP 109/71; PULSE 57; RESP 14; O2SAT 99
[2024-06-02 21:30] VITALS: BP 101/72; PULSE 56; RESP 16; O2SAT 98
== END 2024-06-02 22:41 | disposition home or self-care (01) ==
PROVIDERS: Emergency Medicine; Emergency Provider Emergency Medicine; PCP Family Medicine
DX: O20.0 Threatened abortion (principal); O20.8 Other hemorrhage in early pregnancy; Z72.0 Tobacco use
CPT/HCPCS: 36415; 76801; 76817; 84702; 85025; 99284

== ENCOUNTER 2024-06-05 13:59 | Emergency (ER) | payer SELFPAY ==
[2024-06-05 14:07] VITALS: BP 110/63; PULSE 77; RESP 16; TEMP 36.7; O2SAT 98
[2024-06-05 15:15] LABS: Basophils % 0.4 %; Eosinophils # 0.3 10^3/uL (0.0-0.8); Hematocrit 41.4 % (36-47); Lymphocytes % 13.4 %; Mean Corpuscular HGB Conc 33.1 g/dL (30-55); Mean Corpuscular Hemoglobin 31.1 pg (27-33); Mean Corpuscular Volume 93.9 fl (85-98); Mean Platelet Volume 10.8 fL (7.4-10.4); Monocytes # 0.5 10^3/uL (0.2-0.9); Monocytes % 7.2 %; Neutrophils # 5.47 10^3/uL (1.8-7.7); Neutrophils % 74.5 %; Nucleated Red Blood Cells % 0 %; Platelet Count 240 10^3/cmm (157-399); Red Blood Count 4.41 10^6/uL (3.85-5.65); Red Cell Distribution Width 12.1 % (12.1-15.1); White Blood Count 7.34 10^3/uL (3.29-11.43)
[2024-06-05 17:05] LABS: Rapid Strep A Test Negative (Negative)
--- NOTE | 2024-06-05 17:22 | USR_ITS ---
PROCEDURE INFORMATION: Exam: US , Limited Exam date and time: 06/05/2024 5:37 PM Age: 34 years old Clinical indication: Lmp or gestational age (in weeks): 5; Antepartum complications; Bleeding; ; Additional info: Confirm viability LABS AND CLINICAL REPORTS: Last menstrual period start date: 05/04/2024 Gestational age (Established): 4 w 4 d Estimated due date (Established): 02/08/2025 TECHNIQUE: Imaging protocol: Real-time ultrasound of the maternal uterus with image documentation. Exam focused on the clinical indication. COMPARISON: US OB <=14 wk fetus w transvag 06/02/2024 9:38 PM FINDINGS: Gestation: Yolk sac is visualized. pole not visualized. heart rate: heart rate not detected. BIOMETRY: Mean sac diameter: Estimated gestational age 5 weeks 4 days based on average gestational sac diameter. MATERNAL: Uterus: Uterus measures 8.5 x 4.9 x 5.3 cm and appears unremarkable. Right ovary/adnexa: Right ovary measures 2.7 x 1.5 x 2.4 cm. Normal arterial waveform. Left ovary/adnexa: Left ovary measures 3.5 x 2.5 x 2.7 cm. Normal arterial waveform. US/US OB limited [id number] IMPRESSION: 1. Intrauterine gestational sac. As before, no definite pole is visualized and no heart rate is detected. This may again be too early for dates or could represent nonviable . Recommend continued imaging follow-up as clinically warranted. 2. Previously seen apparent subchorionic hemorrhage no longer visualized.
--- NOTE | 2024-06-05 17:22 | W.ED.PREGNAN ---
HPI - General: Chief complaint: OB/Uterine Contractions Stated complaint: spotting (4wks preg) Time Seen by Provider: 06/05/24 17:22 Related Data Previous Rx's Medication Instructions Recorded albuterol sulfate 90 mcg/actuation 2 inh inhalation Q4H PRN shortness 12/10/22 aerosol inhaler of breath or wheezing #6.7 grams Allergies Allergy/AdvReac Type Severity Reaction Status Date / Time sulfadiazine Allergy Mild Nausea Verified 06/02/24 18:03 aspirin Allergy Unknown Unknown Verified 06/02/24 18:03 Penicillins Allergy Unknown Unknown Verified 06/02/24 18:03 PFSH ED PFSH: Medical History Acute bronchitis due to Rhinovirus No pertinent past medical history neghx: htn,dm,thyroid,dvt/pe PCP: Dr. Alba Generalized abdominal pain Anxiety with depression Surgical History H/O LEEP x2 at ages 15 and 16 years old Family History Grandmother Breast cancer Maternal grandmother--dx'd in her 60s Ovarian cancer Maternal grandmother---dx age unknown Son Diabetes Type 1 Family history of thyroid problem Mother Hypertension Hyperlipidemia Heart disease Father Family history of thyroid problem Denies family history of Colon cancer Uterine cancer Stroke Social History Smoking and tobacco/nicotine status: current every day tobacco/nicotine user Course Vital Signs: Vital signs: Vital Signs Temperature 98.0 F 06/05/24 14:07 Pulse Rate 77 06/05/24 14:07 Respiratory Rate 16 06/05/24 14:07 Blood Pressure 110/63 06/05/24 14:07 Pulse Oximetry 98 06/05/24 14:07 Oxygen Delivery Me thod Room Air 06/05/24 14:07 MDM - OB/Uterine Contractions Lab Data 06/05/24 14:28 Laboratory Results WBC 7.34 10^3/uL (3.29-11.43) 06/05/24 14:28 RBC 4.41 10^6/uL (3.85-5.65) 06/05/24 14:28 Hgb 13.70 g/dL (11.27-16.99) 06/05/24 14: Hct 41.4 % (36-47) 06/05/24 14: MCV 93.9 fl (85-98) 06/05/24 14: MCH 31.1 pg (27-33) 06/05/24 14: MCHC 33.1 g/dL (30-55) 06/05/24 14: RDW 12.1 % (12.1-15.1) 06/05/24 14: Plt Count 240 10^3/cmm (157-399) 06/05/24 14: MPV 10.8 fL (7.4-10.4) H 06/05/24 14: Neut % (Auto) 74.5 % 06/05/24 14: Lymph % (Auto) 13.4 % 06/05/24 14: [place] % (Auto) 7.2 % 06/05/24 14: Eos % (Auto) 4.0 % 06/05/24 14: Baso % (Auto) 0.4 % 06/05/24 14: Neut # (Auto) 5.47 10^3/uL (1.8-7.7) 06/05/24 14: Lymph # (Auto) 1.0 10^3/uL (0.8-4.8) 06/05/24 14: [place] # (Auto) 0.5 10^3/uL (0.2-0.9) 06/05/24 14: Eos # (Auto) 0.3 10^3/uL (0.0-0.8) 06/05/24 14: Baso # (Auto) 0.0 10^3/uL (0.0-0.1) 06/05/24: Nucleated RBC % (auto) 0 % 06/05/24: Nucleated RBCs # 0.0 /100WBC 06/05/24 14: Ser , Semi-Qnt 48511.00 mIU/mL 06/05/24 14:20 Group A Strep Rapid Negative (Negative) 06/05/24 16:52 Discharge Plan Discharge Condition: Stable Prescriptions: No Action albuterol sulfate 90 mcg/actuation HFA aerosol inhaler 2 inh inhalation Q4H PRN (Reason: shortness of breath or wheezing) Qty: 6.7 0RF Referrals: Kwan Ambriz MD [Primary Care Provider] - Coding Level of Care Code ED Labor Mediator for Kwame Herrera
[2024-06-05 18:38] VITALS: BP 122/76; PULSE 83; O2SAT 99
--- NOTE | 2024-06-05 18:42 | ED_ITS ---
HPI - 2 General: Chief complaint: OB/Uterine Contractions Stated complaint: spotting (4wks preg) Time Seen by Provider: 06/05/24 17:22 History of Present Illness: Patient presents to the ER with complaints of minimal vaginal bleeding she think she is about 4 weeks . She had ultrasound and quantitative hCG done about 2 days ago. This is a follow-up for serial results. Then they saw small subchorionic hemorrhage and no pole or hCG was approximately 4000. Patient is not had any bleeding today. Patient does says she has appointment with her OB tomorrow. Related Data Previous Rx's Medication Instructions Recorded albuterol sulfate 90 mcg/actuation 2 inh inhalation Q4H PRN shortness 12/10/22 aerosol inhaler of breath or wheezing #6.7 grams Allergies Allergy/AdvReac Type Severity Reaction Status Date / Time sulfadiazine Allergy Mild Nausea Verified 06/02/24 18:03 aspirin Allergy Unknown Unknown Verified 06/02/24 18:03 Penicillins Allergy Unknown Unknown Verified 06/02/24 18:03 Review of Systems 2 General: Reports: 10 or more systems reviewed and unremarkable except in HPI and below PFSH ED 2 PFSH: Medical History Acute bronchitis due to Rhinovirus No pertinent past medical history neghx: htn,dm,thyroid,dvt/pe PCP: Dr. Alba Generalized abdominal pain Anxiety with depression Surgical History H/O LEEP x2 at ages 15 and 16 years old Family History Grandmother Breast cancer Maternal grandmother--dx'd in her 60s Ovarian cancer Maternal grandmother---dx age unknown Son Diabetes Type 1 Family history of thyroid problem Mother Hypertension Hyperlipidemia Heart disease Father Family history of thyroid problem Denies family history of Colon cancer Uterine cancer Stroke Social History Smoking and tobacco/nicotine status: current every day tobacco/nicotine user Physical Exam 2 Const: COMMON NORMALS: no acute distress, average body habitus, patient oriented x3, no limitations, healthy appearing, alert and well nourished Neck/C-Spine: COMMON NORMALS: no JVD Chest: COMMONS NORMALS: normal inspection of the chest and normal palpation of entire chest wall Resp: COMMON NORMALS: normal respiratory effort, No retractions, No use of accessory muscles and clear to auscultation bilaterally AUSCULTATION: clear to auscultation bilaterally Cardio: COMMON NORMALS: no JVD, regular rate, regular rhythm, S1 normal heart sound present, S2 normal heart sound present, No gallops present (Cardio), No clicks present (Cardio), No murmurs present (Cardio) and No rub (Cardio) R ATE: regular rate RHYTHM: regular rhythm HEART SOUNDS: S1 normal heart sound present and S2 normal heart sound present GI: COMMON NORMALS: Normal to inspection, nondistended, normoactive bowel sounds present, Soft to palpation, non-tender, No hepatosplenomegaly present and no masses PALPATION: Yes Soft to palpation and Yes No hepatosplenomegaly present Neuro: COMMON NORMALS: patient oriented x3 SENSORIUM/ORIENTATION: Yes alert Course 2 Vital Signs: Vital signs: Vital Signs Temperature 98.0 F 06/05/24 14:07 Pulse Rate 83 06/05/24 18:38 Respiratory Rate 16 06/05/24 14:07 Blood Pressure 122/76 06/05/24 18:38 Pulse Oximetry 99 06/05/24 18:38 Oxygen Delivery Me thod Room Air 06/05/24 18:38 MDM - OB/Uterine Contractions Medical Decision Making Lab work was reviewed her hCG is approximately 10,300 today went up from 4300, contact interpretation of the ultrasound showed no subchorionic hemorrhage but also no pole estimated gestation approximately 5 weeks 3 days. These results was discussed with the patient. Patient will follow-up with her OB tomorrow. Medical Records I reviewed the patient's medical records. Lab Data I reviewed the patient's lab results. 06/05/24 14:28 Radiology Impressions Obstetrics Ultrasound 06/05/24 17:22 IMPRESSION: 1. Intrauterine gestational sac. As before, no definite pole is visualized and no heart rate is detected. This may again be too early for dates or could represent nonviable . Recommend continued imaging follow-up as clinically warranted. 2. Previously seen apparent subchorionic hemorrhage no longer visualized. Laboratory Results WBC 7.34 10^3/uL (3.29-11.43) 06/05/24 14:28 RBC 4.41 10^6/uL (3.85-5.65) 06/05/24 14: Hgb 13.70 g/dL (11.27-16.99) 06/05/24 14: Hct 41.4 % (36-47) 06/05/24 14: MCV 93.9 fl (85-98) 06/05/24 14: MCH 31.1 pg (27-33) 06/05/24 14: MCHC 33.1 g/dL (30-55) 06/05/24 14: RDW 12.1 % (12.1-15.1) 06/05/24 14: Plt Count 240 10^3/cmm (157-399) 06/05/24 14: MPV 10.8 fL (7.4-10.4) H 06/05/24 14: Neut % (Auto) 74.5 % 06/05/24 14: Lymph % (Auto) 13.4 % 06/05/24 14: [place] % (Auto) 7.2 % 06/05/24 14: Eos % (Auto) 4.0 % 06/05/24 14: Baso % (Auto) 0.4 % 06/05/24: Neut # (Auto) 5.47 10^3/uL (1.8-7.7) 06/05/24 14: Lymph # (Auto) 1.0 10^3/uL (0.8-4.8) 06/05/24 14: [place] # (Auto) 0.5 10^3/uL (0.2-0.9) 06/05/24 14: Eos # (Auto) 0.3 10^3/uL (0.0-0.8) 06/05/24 14: Baso # (Auto) 0.0 10^3/uL (0.0-0.1) 06/05/24 14: Nucleated RBC % (auto) 0 % 06/05/24: Nucleated RBCs # 0.0 /100WBC 06/05/24 14: Ser , Semi-Qnt 91131.00 mIU/mL 06/05/24 14:20 Group A Strep Rapid Negative (Negative) 06/05/24 16:52 All radiology interpretation(s) finalized by discharge Discharge Plan Discharge Patient Disposition: Home Clinical Impression: Qualifiers: Weeks of gestation: less than 8 weeks Qualified Code(s): Z3A.01 - Less than 8 weeks gestation of Condition: Stable Prescriptions: No Action albuterol sulfate 90 mcg/actuation HFA aerosol inhaler 2 inh inhalation Q4H PRN (Reason: shortness of breath or wheezing) Qty: 6.7 0RF Discharge Orders: Discharge ED (Routine); Ordered 06/05/24 Ordered By: Azael Fan Referrals: Kwan Ambriz MD [Primary Care Provider] - 1 week Patient Instructions: Activity Restrictions/Additional Instructions: Your evaluation ER today showed your beta hCG at 10,336, this is up from 4334 3 days ago. Report by the tech showed the ultrasound gestational age at 5 weeks and 3 days with a prominent gestational sac but no obvious pole, it did not show any subchorionic hemorrhage. Please keep your appointment with your OB tomorrow. Coding Level of Care Code ED Distribution Clerk for Kwame Herrera
== END 2024-06-05 19:04 | disposition home or self-care (01) ==
PROVIDERS: Emergency Medicine; Emergency Provider Emergency Medicine; PCP Family Medicine
DX: Z34.01 Encounter for supervision of normal first pregnancy, first trimester (principal); Z72.0 Tobacco use
CPT/HCPCS: 36415; 76815; 84702; 85025; 87081; 87880; 99284

== ENCOUNTER 2024-06-06 20:48 | Emergency (ER) | payer MEDICAID, SELFPAY ==
[2024-06-06 21:08] VITALS: BP 117/74; PULSE 105; RESP 16; TEMP 36.8; O2SAT 98
--- NOTE | 2024-06-06 21:42 | W.ED.SOB ---
HPI - SOB/Dyspnea General: Chief Complaint: Shortness of Breath/Dyspnea Stated Complaint: SOB wheezing Time Seen by Provider: 06/06/24 21:35 History of Present Illness: HPI Narrative: Patient presents to the ER with complaints of coughing and wheezing. Patient states she was unable to get her albuterol inhaler filled today at pharmacy. She does not know what to do so she decided to come in here. Patient is currently approximately 5 weeks . Related Data Previous Rx's Medication Instructions Recorded albuterol sulfate 90 mcg/actuation 2 inh inhalation Q4H PRN shortness 12/10/22 aerosol inhaler of breath or wheezing #6.7 grams Allergies Allergy/AdvReac Type Severity Reaction Status Date / Time sulfadiazine Allergy Mild Nausea Verified 06/06/24 21:12 aspirin Allergy Unknown Unknown Verified 06/06/24 21:12 Penicillins Allergy Unknown Unknown Verified 06/06/24 21:12 Review of Systems General: Reports: 10 or more systems reviewed and unremarkable except in HPI and below PFSH ED PFSH: Medical History Acute bronchitis due to Rhinovirus No pertinent past medical history neghx: htn,dm,thyroid,dvt/pe PCP: Dr. Alba Generalized abdominal pain Anxiety with depression Surgical History H/O LEEP x2 at ages 15 and 16 years old Family History Grandmother Breast cancer Maternal grandmother--dx'd in her 60s Ovarian cancer Maternal grandmother---dx age unknown Son Diabetes Type 1 Family history of thyroid problem Mother Hypertension Hyperlipidemia Heart disease Father Family history of thyroid problem Denies family history of Colon cancer Uterine cancer Stroke Social History Smoking and tobacco/nicotine status: current every day tobacco/nicotine user Physical Exam Const: COMMON NORMALS: no acute distress, average body habitus, patient oriented x3, no limitations, healthy appearing, alert and well nourished Neck/C-Spine: COMMON NORMALS: no JVD Chest: COMMONS NORMALS: normal inspection of the chest and normal palpation of entire chest wall Resp: COMMON NORMALS: normal respiratory effort, No retractions and No use of accessory muscles; negative for clear to auscultation bilaterally (Occasional wheeze) AUSCULTATION: not clear to auscultation bilaterally (Occasional wheeze) Cardio: COMMON NORMALS: no JVD, regular rate, regular rhythm, S1 normal heart sound present, S2 normal heart sound present, No gallops present (Cardio), No clicks present (Cardio), No murmurs present (Cardio) and No rub (Cardio) RATE: regular rate RHYTHM: regular rhythm HEART SOUNDS: S1 normal heart sound present and S2 normal heart sound present GI: COMMON NORMALS: Normal to inspection, nondistended, normoactive bowel sounds present, Soft to palpation, non-tender, No hepatosplenomegaly present and no masses PALPATION: Yes Soft to palpation and Yes No hepatosplenomegaly present Neuro: COMMON NORMALS: patient oriented x3 SENSORIUM/ORIENTATION: Yes alert Course Vital Signs: Vital signs: Vital Signs Temperature 98.2 F 06/06/24 21:08 Pulse Rate 105 H 06/06/24 21:08 Respiratory Rate 16 06/06/24 21:08 Blood Pressure 117/74 06/06/24 21:08 Pulse Oximetry 98 06/06/24 21:08 Oxygen Delivery Me thod Room Air 06/06/24 21:08 MDM - SOB/Dyspnea Medical Decision Making Patient is given albuterol breathing treatment here in ER which helped her breathing. Patient be discharged home. Patient was instructed to get her inhaler filled for [facility] tomorrow. Medical Records I reviewed the patient's medical records. Lab Data I reviewed the patient's lab results. No radiology studies performed this visit Discharge Plan Discharge Patient Disposition: Home Clinical Impression: Asthma Qualifiers: Asthma severity: unspecified severity Asthma persistence: unspecified Asthma complication type: uncomplicated Qualified Code(s): J45.909 - Unspecified asthma, uncomplicated Condition: Stable Prescriptions: No Action albuterol sulfate 90 mcg/actuation HFA aerosol inhaler 2 inh inhalation Q4H PRN (Reason: shortness of breath or wheezing) Qty: 6.7 0RF Discharge Orders: Discharge ED (Routine); Ordered 06/06/24 Ordered By: Azael Fan Referrals: Kwan Ambriz MD [Primary Care Provider] - 1 week Patient Instructions: Asthma (DC) Activity Restrictions/Additional Instructions: Thank you for choosing [facility] for your healthcare needs today. Please realize that you were seen in the emergency department and that we are providing you with an emergency medical screening exam and this may not be a complete and all exclusive of all testing and/or medical workup we may need to determine your element or severity of your illness. It is very important that you follow-up as instructed with your primary care provider or specialist for the additional evaluation and to discuss your medical treatment plan. You may return to the emergency department should you have concerns or if your condition changes or worsens in any way. Coding Level of Care Code ED Network Operations Specialist for Kwame Herrera
[2024-06-06 21:59] VITALS: PULSE 97; RESP 18; O2SAT 99
[2024-06-06 22:06] VITALS: PULSE 97; RESP 20; O2SAT 98
[2024-06-06] MEDS: albuterol 2.5 mg/3 mL Neb INHALATION (22:06)
[2024-06-06 22:14] VITALS: PULSE 103; RESP 18; O2SAT 98
[2024-06-06 22:25] VITALS: BP 125/58; PULSE 72; RESP 19; O2SAT 97
[2024-06-06 22:40] VITALS: BP 119/71; PULSE 116; O2SAT 93
== END 2024-06-06 22:41 | disposition home or self-care (01) ==
PROVIDERS: Emergency Provider Emergency Medicine; PCP Family Medicine
DX: J45.909 Unspecified asthma, uncomplicated (principal); Z72.0 Tobacco use
CPT/HCPCS: 94640; 99283; J7613

== ENCOUNTER 2024-06-08 16:00 | Emergency (ER) | payer MEDICAID, SELFPAY ==
[2024-06-08 16:15] VITALS: BP 112/74; PULSE 77; RESP 17; TEMP 36.7; O2SAT 97; BMI 21.9
[2024-06-08 16:33] LABS: Basophils % 0.3 %; Eosinophils # 0.1 10^3/uL (0.0-0.8); Eosinophils % 1.3 %; Hematocrit 40.3 % (36-47); Lymphocytes # 0.8 10^3/uL (0.8-4.8); Lymphocytes % 20.1 %; Mean Corpuscular Hemoglobin 31.3 pg (27-33); Mean Platelet Volume 10.2 fL (7.4-10.4); Monocytes # 0.3 10^3/uL (0.2-0.9); Monocytes % 7.8 %; Neutrophils # 2.69 10^3/uL (1.8-7.7); Nucleated Red Blood Cells % 0 %; Platelet Count 209 10^3/cmm (157-399); Red Blood Count 4.38 10^6/uL (3.85-5.65); White Blood Count 3.84 10^3/uL (3.29-11.43)
[2024-06-08 17:21] VITALS: PULSE 84; O2SAT 98
--- NOTE | 2024-06-08 17:21 | USR_ITS ---
PROCEDURE INFORMATION: Exam: US First Trimester, Transabdominal and US , Transvaginal Exam date and time: 06/08/2024 6:08 PM Age: 34 years old Clinical indication: Lmp or gestational age (in weeks): 5w5d; Antepartum complications; Bleeding; ; Additional info: 6weeks , vaginal bleeding LABS AND CLINICAL REPORTS: Last menstrual period start date: 05/04/2024 Gestational age (Established): 5 w 0 d Estimated due date (Established): 02/08/2025 TECHNIQUE: Imaging protocol: Real-time transabdominal obstetrical ultrasound of the maternal pelvis and a first trimester , less than 14 weeks 0 days, with image documentation. Transvaginal imaging was used for better evaluation of the fetus, adnexa, and/or cervix. COMPARISON: US OB limited [id number] 06/05/2024 5:37 PM FINDINGS: GESTATION: Gestation: Yolk sac measures 3.4 mm. Embryo/ cardiac activity (BPM): 129 bpm Extra-embryonic membranes/Placenta: Unremarkable. No subchorionic bleed. Amniotic/Chorionic fluid: Amniotic and extra-amniotic fluid are normal for gestational age. BIOMETRY: Gestational age (AUA): 5 weeks 5 days MATERNAL: Uterus: Unremarkable. Cervix: Cervical length measures 3 cm. Right ovary/adnexa: Right ovary measures 2.4 x 1.4 x 2.8 cm with normal waveforms on color Doppler imaging. Left ovary/adnexa: Left ovary measures 2.4 x 2.2 x 3.6 cm with normal waveforms on color Doppler imaging. Small corpus luteal cyst. Intraperitoneal space: Small fluid in the cul-de-sac. US/US OB <=14 wk fetus w transvag IMPRESSION: 1. Single live intrauterine gestation with normal heart rate. 2. Estimated gestational age 5 weeks 5 days with estimated date of delivery 02/03/2025.
--- NOTE | 2024-06-08 17:56 | ED_ITS ---
HPI - Female Genitourinary 2 General: Chief complaint: Vaginal Bleeding Stated complaint: 6 wk preg spotting Time Seen by Provider: 06/08/24 16:42 History of Present Illness: Patient is a 34-year-old female that presents to the emergency department with complaints of vaginal bleeding. Patient reports that she is a A0 is approximately 6 weeks along. She was seen in the last week in the emergency department for subchorionic hemorrhage. This seemed to have resolved but today, after sexual intercourse that was limited, she developed bright red bleeding. Bleeding has ceased at this point. She has no [employer] scheduled for 06/17/2024. Date of Last Menstrual Period: 05/04/24 Related Data Previous Rx's Medication Instructions Recorded albuterol sulfate 90 mcg/actuation 2 inh inhalation Q4H PRN shortness 12/10/22 aerosol inhaler of breath or wheezing #6.7 grams Allergies Allergy/AdvReac Type Severity Reaction Status Date / Time sulfadiazine Allergy Mild Nausea Verified 06/06/24 21:12 aspirin Allergy Unknown Unknown Verified 06/06/24 21:12 Penicillins Allergy Unknown Unknown Verified 06/06/24 21:12 Review of Systems 2 General: Reports: 10 or more systems reviewed and unremarkable except in HPI and below PFSH ED 2 PFSH: Medical History Acute bronchitis due to Rhinovirus No pertinent past medical history neghx: htn,dm,thyroid,dvt/pe PCP: Dr. Alba Generalized abdominal pain Anxiety with depression Surgical History H/O LEEP x2 at ages 15 and 16 years old Family History Grandmother Breast cancer Maternal grandmother--dx'd in her 60s Ovarian cancer Maternal grandmother---dx age unknown Son Diabetes Type 1 Family history of thyroid problem Mother Hypertension Hyperlipidemia Heart disease Father Family history of thyroid problem Denies family history of Colon cancer Uterine cancer Stroke Social History Smoking and tobacco/nicotine status: current every day tobacco/nicotine user Female Reproductive History: Date of last menstrual period: 05/04/24 Physical Exam 2 Const: COMMON NORMALS: no acute distress, average body habitus, patient oriented x3, no limitations, healthy appearing, alert and well nourished Neck/C-Spine: COMMON NORMALS: no JVD Chest: COMMONS NORMALS: normal inspection of the chest and normal palpation of entire chest wall Resp: COMMON NORMALS: normal respiratory effort, No retractions, No use of accessory muscles and clear to auscultation bilaterally AUSCULTATION: clear to auscultation bilaterally Cardio: COMMON NORMALS: no JVD, regular rate, regular rhythm, S1 normal heart sound present, S2 normal heart sound present, No gallops present (Cardio), No clicks present (Cardio), No murmurs present (Cardio) and No rub (Cardio) R ATE: regular rate RHYTHM: regular rhythm HEART SOUNDS: S1 normal heart sound present and S2 normal heart sound present GI: COMMON NORMALS: Normal to inspection, nondistended, normoactive bowel sounds present, Soft to palpation, non-tender, No hepatosplenomegaly present and no masses PALPATION: Yes Soft to palpation and Yes No hepatosplenomegaly present Neuro: COMMON NORMALS: patient oriented x3 SENSORIUM/ORIENTATION: Yes alert Course 2 Vital Signs: Vital signs: Vital Signs Temperature 98.0 F 06/08/24 16:15 Pulse Rate 77 06/08/24 16:15 Respiratory Rate 17 06/08/24 16:15 Blood Pressure 112/74 06/08/24 16:15 Pulse Oximetry 97 06/08/24 16:15 Oxygen Delivery Me thod Room Air 06/08/24 16:15 MDM - Female Medical Decision Making Patient was evaluated in the emergency department today for complaints of vaginal bleeding. Recent evaluation, 06/05/2019 for similar complaint. At that time had a subchorionic hemorrhage. Today patient underwent repeat evaluation of her laboratory studies and an ultrasound. Ultrasound revealed intrauterine . Estimated gestation 5 weeks 5 days. heart tones 127?132. No subchorionic hemorrhage noted. Cul-de-sac present. Patient has follow-up scheduled on 06/17/2024. I am giving her a work release. No sexual intercourse until follow-up with [employer] No heavy lifting until follow-up with [employer]. Lab Data 06/08/24 16:26 Laboratory Results WBC 3.84 10^3/uL (3.29-11.43) 06/08/24 16: RBC 4.38 10^6/uL (3.85-5.65) 06/08/24 16: Hgb 13.70 g/dL (11.27-16.99) 06/08/24 16: Hct 40.3 % (36-47) 06/08/24 16: MCV 92.0 fl (85-98) 06/08/24 16: MCH 31.3 pg (27-33) 06/08/24 16: MCHC 34.0 g/dL (30-55) 06/08/24 16: RDW 12.0 % (12.1-15.1) L 06/08/24: Plt Count 209 10^3/cmm (157-399) 06/08/24 16: MPV 10.2 fL (7.4-10.4) 06/08/24 16: Neut % (Auto) 70.0 % 06/08/24: Lymph % (Auto) 20.1 % 06/08/24 16: [place] % (Auto) 7.8 % 06/08/24: Eos % (Auto) 1.3 % 06/08/24: Baso % (Auto) 0.3 % 06/08/24: Neut # (Auto) 2.69 10^3/uL (1.8-7.7) 06/08/24: Lymph # (Auto) 0.8 10^3/uL (0.8-4.8) 06/08/24: [place] # (Auto) 0.3 10^3/uL (0.2-0.9) 06/08/24 16: Eos # (Auto) 0.1 10^3/uL (0.0-0.8) 06/08/24: Baso # (Auto) 0.0 10^3/uL (0.0-0.1) 06/08/24: Nucleated RBC % (auto) 0 % 06/08/24: Nucleated RBCs # 0.0 /100WBC 06/08/24 16: Ser , Semi-Qnt 78850.00 mIU/mL 06/08/24 16:26 XR interpretation done by ED provider, pending radiology final review Discharge Plan Discharge Patient Disposition: Home Clinical Impression: , Vaginal bleeding before 22 weeks gestation Condition: Stable Prescriptions: No Action albuterol sulfate 90 mcg/actuation HFA aerosol inhaler 2 inh inhalation Q4H PRN (Reason: shortness of breath or wheezing) Qty: 6.7 0RF Discharge Orders: Discharge ED (Routine); Ordered 06/08/24 Ordered By: Clarita Ferrell Referrals: Kwan Ambriz MD [Primary Care Provider] - Discharge Diet: Advance as tolerated Discharge Activity: Resume usual activity Patient Instructions: Non-Threatening First Trimester Vaginal Bleed (ED), Pain Management Activity Restrictions/Additional Instructions: No vaginal reports until cleared no heavy lifting cleared by [employer]. I provided you with a work note. You may return to work on 06/10/2024. Please return to the emergency department for new, concerning, worsening symptoms Stand Alone Forms: Work/School Release Coding Level of Care Code ED Vest Maker for Kwame Herrera
[2024-06-08 18:00] VITALS: BP 103/74; PULSE 83; O2SAT 97
[2024-06-08 18:48] VITALS: PULSE 86; O2SAT 91
[2024-06-08 19:00] VITALS: PULSE 75; O2SAT 98
[2024-06-08 19:28] VITALS: BP 107/71; PULSE 67; O2SAT 97
== END 2024-06-08 19:29 | disposition home or self-care (01) ==
PROVIDERS: Emergency Medicine; Emergency Provider Nurse Practitioner; PCP Family Medicine
DX: O20.9 Hemorrhage in early pregnancy, unspecified (principal); Z3A.01 Less than 8 weeks gestation of pregnancy; Z72.0 Tobacco use
CPT/HCPCS: 36415; 76801; 76817; 84702; 85025; 99284

== ENCOUNTER 2024-07-12 17:59 | Emergency (ER) | payer MEDICAID, SELFPAY ==
[2024-07-12] VITALS (7 sets, daily range): BP systolic 101–126; BP diastolic 53–83; PULSE 55–78; RESP 16; TEMP 36.8; O2SAT 97–100; BMI 22.3
--- NOTE | 2024-07-12 19:18 | USR_ITS ---
PROCEDURE INFORMATION: Exam: US First Trimester, Transabdominal Exam date and time: 07/12/2024 11:16 PM Age: 34 years old Clinical indication: complicated by abdominal or pelvic pain; Lower; First trimester (<14 weeks 0 days); Gestational age or lmp: 11w1d; ; Additional info: Traumatic pelvic pain, LABS AND CLINICAL REPORTS: Gestational age (Established): 9 w 6 d Estimated due date (Established): 02/08/2025 TECHNIQUE: Imaging protocol: Real-time transabdominal obstetrical ultrasound of the maternal pelvis and a first trimester , less than 14 weeks 0 days, with image documentation. COMPARISON: US OB <=14 wk fetus w transvag 06/08/2024 6:08 PM FINDINGS: GESTATION: Gestation: Single viable intrauterine gestation. Embryo/ cardiac activity (BPM): 167 bpm Extra-embryonic membranes/Placenta: Unremarkable. No subchorionic bleed. Amniotic/Chorionic fluid: Amniotic and extra-amniotic fluid are normal for gestational age. BIOMETRY: Gestational age (AUA): Gestational age 11 weeks 1 day, 01/30/2025 [place] rump length (CRL): 4.3 cm, 11 weeks 1 day, 02/23/2025 MATERNAL: Uterus: Unremarkable. Cervix: Unremarkable. Endocervical canal is closed. Right ovary/adnexa: The right ovary is not seen, potentially related to overlying bowel contents. Left ovary/adnexa: 4.3 cm. Doppler interrogation demonstrates normal arterial and venous waveforms as well as color flow. Intraperitoneal space: No intraperitoneal free fluid. US/US OB <= 14 weeks fetus [id number] IMPRESSION: Single viable intrauterine gestation estimated age 11 weeks 1 day. Size greater than dates.
[2024-07-12 20:03] LABS: Basophils % 0.2 %; Eosinophils % 0.5 %; Hematocrit 38.4 % (36-47); Lymphocytes # 1.1 10^3/uL (0.8-4.8); Lymphocytes % 13.4 %; Mean Corpuscular HGB Conc 34.4 g/dL (30-55); Mean Corpuscular Hemoglobin 31.1 pg (27-33); Mean Corpuscular Volume 90.6 fl (85-98); Monocytes # 0.4 10^3/uL (0.2-0.9); Monocytes % 5.2 %; Neutrophils # 6.58 10^3/uL (1.8-7.7); Neutrophils % 80.2 %; Nucleated Red Blood Cells % 0 %; Platelet Count 245 10^3/cmm (157-399); Red Blood Count 4.24 10^6/uL (3.85-5.65); Red Cell Distribution Width 12.9 % (12.1-15.1); White Blood Count 8.21 10^3/uL (3.29-11.43)
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
[2024-07-12 20:36] LABS: Alanine Aminotransferase 10 U/L (0-33); Albumin Level 3.9 g/dL (3.5-5.2); Alkaline Phosphatase 59 U/L (35-105); Anion Gap 11.5 (5-19); Aspartate Amino Transferase 6 U/L (0-32); Blood Urea Nitrogen 9 mg/dL (6-20); Calcium 8.7 mg/dL (8.5-10.5); Carbon Dioxide 24 mmol/L (22-29); Chloride 104 mmol/L (98-107); Creatinine Clr Calc Pharmacy 139.8419; Globulin 2.8 g/dL (1.3-4.6); Glomerular Filtration Rate 140.4 mL/min (90-130); Glucose 82 mg/dL (65-115); Osmolality Calculated 280 mOsm/kg (285-295); Potassium 3.5 mmol/L (3.5-5.1); Sodium 136 mmol/L (136-145); Total Bilirubin 0.5 mg/dL (0.15-1.2); Total Protein 6.7 g/dL (6.6-8.7)
[2024-07-13 02:00] VITALS: BP 125/78; PULSE 78; O2SAT 95
== END 2024-07-13 02:01 | disposition home or self-care (01) ==
PROVIDERS: Emergency Medicine; Emergency Provider Emergency Medicine; PCP Family Medicine
DX: O26.891 Other specified pregnancy related conditions, first trimester (principal); Z3A.11 11 weeks gestation of pregnancy
CPT/HCPCS: 76801; 80053; 84702; 85025; 86850; 86900; 99284

== ENCOUNTER 2024-08-28 19:18 | Emergency (ER) | payer MEDICAID, SELFPAY ==
[2024-08-28] VITALS (9 sets, daily range): BP systolic 99–125; BP diastolic 55–76; PULSE 73–90; RESP 16–18; TEMP 36.4; O2SAT 97–100; BMI 24.0
--- NOTE | 2024-08-28 19:58 | USR_ITS ---
PROCEDURE INFORMATION: Exam: US After First Trimester, Transabdominal Exam date and time: 08/28/2024 9:05 PM Age: 34 years old Clinical indication: Lmp or gestational age (in weeks): 16w 4 d by reported lmp; Antepartum complications; Other: Leaking clear fluid; ; G2-p1; Additional info: Clear vaginal discharge, pelvic pain LABS AND CLINICAL REPORTS: Last menstrual period start date: 05/04/2024 Gestational age (Established): 16 w 4 d Estimated due date (Established): 02/08/2025 TECHNIQUE: Imaging protocol: Real-time transabdominal obstetrical ultrasound of the maternal pelvis and a second or third trimester with image documentation. COMPARISON: US OB <= 14 weeks fetus [id number] 07/12/2024 11:16 PM FINDINGS: Gestation: Single live intrauterine gestation. heart rate: 144 bpm presentation and position: Cephalic Placenta: Posterior grade 0 placenta without previa. Amniotic fluid (Qualitative): Amniotic fluid volume is normal. Amniotic fluid index: NARGIS is 14.64 cm. ANATOMY: midline falx: midline falx is normal. cerebellum: cerebellum is normal. lateral ventricles: lateral ventricles are normal. cisterna magna: cisterna magna is normal. choroid plexus: choroid plexus is normal. face: facial profile is normal. heart four-chamber view, heart size and position: heart four-chamber view, size, and position are normal. heart right ventricular outflow tract: right ventricular outflow tract is normal. heart left ventricular outflow tract: left ventricular outflow tract is normal. kidneys: kidneys are normal. stomach: stomach is normal. urinary bladder: bladder is normal. spine: No visualized abnormalities of spine. Umbilical cord and insertion: umbilical cord insertion site into the abdomen is normal. 3-vessel umbilical cord is seen. upper limbs: No visualized abnormalities of arms/hands. lower limbs: legs and feet: No visualized abnormalities of legs/feet. external genitalia: No visualized abnormalities. BIOMETRY: Gestational age (AUA): 17 w 6 d Estimated due date (AUA): 01/30/2025 Estimated weight: 209.05 g. EFW by AC, BPD, FL, HC, [place] 1985 Biparietal diameter (BPD): 3.97 cm. EGA (BPD) is 18 w 0 d. 96.3 % percentile Head circumference (HC): 14.97 cm. EGA (HC) is 18 w 0 d. 96.1 % percentile Abdominal circumference (AC): 11.82 cm. EGA (AC) is 17 w 4 d. 81.1 % percentile Femur length (FL): 2.61 cm. EGA (FL) is 18 w 0 d. 89.6 % percentile HC/AC: 1.27. (Normal range: 1.08 - 1.28) FL/HC: 17.43. (Normal range: 15.63 - 17.94) FL/BPD: 65.74 FL/AC: 22.08 MATERNAL: Uterus: Unremarkable. Cervix: Cervical length measures 3.4 cm. Right ovary/adnexa: Obscured by lack of adequate acoustic window. Left ovary/adnexa: Obscured by lack of adequate acoustic window. Intraperitoneal space: No intraperitoneal free fluid. US/US OB >= 14 weeks fetus [id number] IMPRESSION: Single live intrauterine gestation.
[2024-08-28 20:02] LABS: Add Urine Microscopic? NO
[2024-08-28 20:04] LABS: Bilirubin Urine Neg (Negative); Blood Urine Neg (Negative); Glucose Urine UA 1+ (Normal); Ketones Urine 1+ (Negative); Leukocyte Esterase Urine Negative (Negative); Nitrate Urine Negative (Negative); Protein Urine Neg (Negative); Urine Appearance Clear (CLEAR); Urine Color Yellow (Yellow); Urobilinogen Urine 1 mg/dL (Negative); pH Urine 5 (5-7)
[2024-08-28 20:05] LABS: Charge for UA Resulting for Rev
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
[2024-08-28 20:17] LABS: Basophils % 0.3 %; Eosinophils # 0.1 10^3/uL (0.0-0.8); Eosinophils % 0.6 %; Lymphocytes # 1.5 10^3/uL (0.8-4.8); Lymphocytes % 14.8 %; Mean Corpuscular HGB Conc 34.1 g/dL (30-55); Mean Corpuscular Hemoglobin 31.1 pg (27-33); Mean Corpuscular Volume 91.2 fl (85-98); Mean Platelet Volume 10.1 fL (7.4-10.4); Monocytes # 0.5 10^3/uL (0.2-0.9); Neutrophils # 7.78 10^3/uL (1.8-7.7); Neutrophils % 78.8 %; Nucleated Red Blood Cells % 0 %; Platelet Count 197 10^3/cmm (157-399); Red Blood Count 3.73 10^6/uL (3.85-5.65); Red Cell Distribution Width 13.2 % (12.1-15.1); White Blood Count 9.87 10^3/uL (3.29-11.43)
== END 2024-08-28 22:42 | disposition home or self-care (01) ==
PROVIDERS: Emergency Provider Physician Assistant; PCP Family Medicine
DX: Z34.82 Encounter for supervision of other normal pregnancy, second trimester (principal); N89.8 Other specified noninflammatory disorders of vagina; Z3A.17 17 weeks gestation of pregnancy
CPT/HCPCS: 36415; 76805; 81003; 84702; 85025; 99284

== ENCOUNTER 2024-09-11 12:40 | Emergency (ER) | payer MEDICAID, SELFPAY ==
[2024-09-11 12:53] VITALS: BP 109/72; PULSE 62; RESP 17; TEMP 36.3; O2SAT 99; BMI 24.5
--- NOTE | 2024-09-11 13:14 | ED_ITS ---
HPI - Back Pain/Injury 2 General: Chief Complaint: Back Pain/Injury Stated Complaint: lower back pain Time Seen by Provider: 09/11/24 13:01 Source: patient Mode of arrival: ambulatory Limitations: no limitations History of Present Illness: 34yo G2, P1 female at almost 19 weeks ge station presents with lower back pain that radiates to the abdomen. Patient reports that the pain started at approximately 0600 and has been persistent. States she has not taken any acetaminophen for the pain. Reports she has not been drinking a lot of fluids. Patient states she was evaluated by her DETECTIVE AND INTELLIGENCE ANALYST at [facility] 2 days ago where her cervix was completely closed and thickened. Patient reports her first resulted in a delivery at 29 weeks gestation. Patient denies fever, cough, congestion, vomiting, diarrhea, vaginal discharge, vaginal bleeding, any other concerns at this time. Associated symptoms: Reports abdominal pain; Deny chills, dysuria, fever(s) or vomiting Related Data Home Medications ?Medication ?Instructions ?Recorded ?Confirmed albuterol sulfate 90 mcg/actuation 2 puff inhalation Q 4H PRN 09/11/24 09/11/24 aerosol inhaler (Ventolin HFA) Shortness Of Breath Or Wheezing bupropion HCl 150 mg 24 hr tablet, 150 mg PO QAM 09/1109/11/24 extended release progesterone micronized 200 mg 200 mg vaginal DAILY 09/11/24 capsule Previous Rx's ?Medication ?Instructions ?Recorded cefdinir 300 mg capsule 300 mg PO BID 7 days #14 cap s 09/11/24 Allergies Allergy/AdvReac Type Severity Reaction Status Date / Time sulfadiazine Allergy Mild Nausea Verified 09/11/24 12:59 aspirin Allergy Unknown Unknown Verified 09/11/24 12:59 Penicillins Allergy Unknown Unknown Verified 09/11/24 12:59 Review of Systems 2 Const: Denies: fever(s), chills or body aches Card: Denies: chest pain Resp: Denies: dyspnea or non-productive cough GI: Reports: abdominal pain; Denies: vomiting or diarrhea : Reports: oliguria; Denies: difficulty voiding or dysuria Musc: Reports: back pain PFSH ED 2 PFSH: Medical History Acute bronchitis due to Rhinovirus No pertinent past medical history neghx: htn,dm,thyroid,dvt/pe PCP: Dr. Alba Generalized abdominal pain Anxiety with depression Surgical History H/O LEEP x2 at ages 15 and 16 years old Family History Grandmother Breast cancer Maternal grandmother--dx'd in her 60s Ovarian cancer Maternal grandmother---dx age unknown Son Diabetes Type 1 Family history of thyroid problem Mother Hypertension Hyperlipidemia Heart disease Father Family history of thyroid problem Denies family history of Colon cancer Uterine cancer Stroke Social History Smoking and tobacco/nicotine status: never used tobacco/nicotine Physical Exam 2 Const: COMMON NORMALS: no acute distress, patient oriented x3, healthy appearing and alert GENERAL APPEARANCE: cooperative O RIENTATION/CONSCIOUSNESS: Yes awake OTHER: Patient is sitting upright on the stretcher in no acute distress. She is able to give history with no difficulty. She is interactive with exam appropriately. No family at bedside at time of exam HENMT: COMMON NORMALS: normocephalic HEAD & SCALP: normocephalic MOUTH: Normal oral and palatal mucosa present Neck/C-Spine: COMMON NORMALS: full ROM Chest: CHEST: Yes Symmetrical chest wall rise Resp: COMMON NORMALS: normal respiratory effort, No use of accessory muscles and clear to auscultation bilaterally EFFORT & INSPECTION: Yes able to speak in complete sentences and Yes symmetric chest movement AUSCULTATION: clear to auscultation bilaterally Cardio: COMMON NORMALS: regular rate and regular rhythm RATE: regular rate RHYTHM: regular rhythm GI: COMMON NORMALS: Soft to palpation and non-tender PALPATION: Yes Soft to palpation OTHER: Gravid abdomen. : COMMON NORMALS: Yes no CVA tenderness BLADDER/KIDNEY EXAM: Yes no CVA tenderness Back/Pelvis: COMMON NORMALS: no CVA tenderness Extremity: COMMON NORMALS: full ROM Neuro: COMMON NORMALS: patient oriented x3 SENSORIUM/ORIENTATION: Yes alert Psych: COMMON NORMALS: cooperative Course 2 ED course: UA with 2+ leukocyte esterase, 11-25 white blood cells, 1+ bacteria. Urine is negative for proteins with no abnormal red blood cells. Reevaluation(s): Reevaluation #1: Bedside ultrasound reveals good movement and cardiac activity. Discussed findings of urinary tract infection in her urine and plan to treat with antibiotics. Patient to receive ceftriaxone while in the emergency department and prescription for cefdinir. Time: 14:45 Vital Signs: Vital signs: Vital Signs Temperature 97.3 F L 09/11/24 12:53 Pulse Rate 62 09/11/24 12:53 Respiratory Rate 17 09/11/24 12:53 Blood Pressure 109/72 09/11/24 12:53 Pulse Oximetry 99 09/11/24 12:53 Oxygen Delivery Me thod Room Air 09/11/24 12:53 MDM - Back Pain/Injury Medical Decision Making 34yo G2, P1 female at almost 19 weeks gestation presents with lower back pain that radiates to the abdomen. Patient reports that the pain started at approximately 0600 and has been persistent. States she has not taken any acetaminophen for the pain. Reports she has not been drinking a lot of fluids. Patient states she was evaluated by her DETECTIVE AND INTELLIGENCE ANALYST at [facility] 2 days ago where her cervix was completely closed and thickened. Patient reports her first resulted in a delivery at 29 weeks gestation. Patient denies fever, cough, congestion, vomiting, diarrhea, vaginal discharge, vaginal bleeding, any other concerns at this time. Patient is nontoxic in appearance. Vital signs are stable. Differential diagnoses include but are not limited to: Acute cystitis, pyelonephritis, round ligament pain, dehydration, labor Given that patient was evaluated by her DETECTIVE AND INTELLIGENCE ANALYST 2 days ago and had a thickened and fully closed cervix at that time, the discomfort does not encompass the entire abdomen, and she is not having tightening of the abdomen, this is not likely to be labor. Will proceed with labs and fluids. No leukocytosis, white blood cell count noted to be 7.93. Hemoglobin is in the normal range of 12.2. UA with 2+ leukocyte esterase, 1+ bacteria, 11-20 white blood cells. Urine culture is currently pending. Discussed these findings with patient and family. Patient did receive ceftriaxone while in the emergency department for urinary tract infection. Prescription of cefdinir was sent to patient's pharmacy. Bedside ultrasound did reveal good movement and cardiac activity. Encourage patient to increase her fluid intake and continue to monitor her symptoms. Recommend she take the antibiotics as they are prescribed. Patient is stable for discharge. Encourage patient to contact her DETECTIVE AND INTELLIGENCE ANALYST tomorrow with an update of symptoms and to discuss a recheck. Return precautions provided. Patient states understanding and has no further questions or concerns at this time. Medical Records I reviewed the patient's medical records. Labs I reviewed the patient's lab results. 09/11/24 13: Laboratory Results WBC 7.93 10^3/uL (3.29-11.43) 09/11/24 13: RBC 3.90 10^6/uL (3.85-5.65) 09/11/24 13: Hgb 12.20 g/dL (11.27-16.99) 09/11/24 13: Hct 35.6 % (36-47) L 09/11/24 13: MCV 91.3 fl (85-98) 09/11/24 13: MCH 31.3 pg (27-33) 09/11/24 13: MCHC 34.3 g/dL (30-55) 09/11/24 13: RDW 13.2 % (12.1-15.1) 09/11/24 13: Plt Count 219 10^3/cmm (157-399) 09/11/24 13: MPV 10.3 fL (7.4-10.4) 09/11/24 13: Neut % (Auto) 75.2 % 09/11/24 13: Lymph % (Auto) 16.0 % 09/11/24 13: [place] % (Auto) 6.7 % 09/11/24 13: Eos % (Auto) 1.3 % 09/11/24 13: Baso % (Auto) 0.3 % 09/11/24 13: Neut # (Auto) 5.97 10^3/uL (1.8-7.7) 09/11/24 13: Lymph # (Auto) 1.3 10^3/uL (0.8-4.8) 09/11/24 13: [place] # (Auto) 0.5 10^3/uL (0.2-0.9) 09/11/24 13: Eos # (Auto) 0.1 10^3/uL (0.0-0.8) 09/11/24 13:26 Baso # (Auto) 0.0 10^3/uL (0.0-0.1) 09/11/24 13:26 Nucleated RBC % (auto) 0 % 09/11/24 13:26 Nucleated RBCs # 0.0 /100WBC 09/11/24 13:26 Urine Color Yellow (Yellow) 09/11/24 13:17 Urine Appearance Clear (CLEAR) 09/11/24 13:17 Urine pH 6.0 (5-7) 09/11/24 13:17 Ur Specific [place] 1.021 (1.005-1.030) 09/11/24 13:17 Urine Protein Negative (Negative) 09/11/24 13:17 Urine Glucose (UA) Negative (Normal) 09/11/24 13:17 Urine Ketones Negative (Negative) 09/11/24 13:17 Urine Blood Negative (Negative) 09/11/24 13:17 Urine Nitrate Negative (Negative) 09/11/24 13:17 Urine Bilirubin Negative (Negative) 09/11/24 13:17 Urine Urobilinogen 1.0 mg/dL (Negative) 09/11/24 13:17 Ur Leukocyte Esterase 2+ (Negative) A 09/11/24 13:17 Urine RBC 0-2 /hpf (0-2) 09/11/24 13:17 Urine WBC 11-20 /hpf (0-5) H 09/11/24 13:17 Ur Squamous Epith Cells 6-10 /hpf (0-5) 09/11/24 13:17 Amorphous Sediment Not Reportable 09/11/24 13:17 Urine Bacteria 1+ /hpf (NONE) H 09/11/24 13:17 Hyaline Casts 4.11 /lpf 09/11/24 13:17 No radiology studies performed this visit Discharge Plan Discharge Patient Disposition: Home Clinical Impression: UTI in , Back pain in Condition: Stable Prescriptions: New cefdinir 300 mg capsule 300 mg PO BID 7 Days Qty: 14 0RF No Action progesterone micronized 200 mg capsule 200 mg vaginal DAILY albuterol sulfate [Ventolin HFA] 90 mcg/actuation HFA aerosol inhaler 2 puff INHALATION Q4H PRN (Reason: Shortness Of Breath Or Wheezing) bupropion HCl 150 mg tablet extended release 24 hr 150 mg PO QAM Discharge Orders: Discharge ED (Routine); Ordered 09/11/24 Ordered By: Dat Carmona Referrals: Kwan Ambriz MD [Primary Care Provider] - Discharge Diet: Usual diet Patient Instructions: Abdominal Pain in (ED), Urinary Tract Infection in (ED) Activity Restrictions/Additional Instructions: Your urine was concerning for a urinary tract infection. The urine culture is currently pending. If we need to change our antibiotic, we will notify you You did receive IV antibiotics in the emergency department and a prescription of cefdinir was sent to your pharmacy for continuation of antibiotic therapy Increase your fluid intake and continue to monitor symptoms Follow-up with your DETECTIVE AND INTELLIGENCE ANALYST, call tomorrow with an update of symptoms and to discuss a recheck Return to the emergency department if any rapid worsening symptoms, vaginal bleeding, vaginal discharge, and as needed Print Language: Haitian Coding Level of Care Code ED Welder Apprentice Combination for Kwame Herrera
[2024-09-11 13:36] LABS: Basophils % 0.3 %; Eosinophils # 0.1 10^3/uL (0.0-0.8); Eosinophils % 1.3 %; Hematocrit 35.6 % (36-47); Lymphocytes # 1.3 10^3/uL (0.8-4.8); Mean Corpuscular HGB Conc 34.3 g/dL (30-55); Mean Corpuscular Hemoglobin 31.3 pg (27-33); Mean Corpuscular Volume 91.3 fl (85-98); Mean Platelet Volume 10.3 fL (7.4-10.4); Monocytes # 0.5 10^3/uL (0.2-0.9); Monocytes % 6.7 %; Neutrophils # 5.97 10^3/uL (1.8-7.7); Neutrophils % 75.2 %; Nucleated Red Blood Cells % 0 %; Platelet Count 219 10^3/cmm (157-399); Red Cell Distribution Width 13.2 % (12.1-15.1); White Blood Count 7.93 10^3/uL (3.29-11.43)
[2024-09-11 13:41] LABS: Bilirubin Urine Negative (Negative); Blood Urine Negative (Negative); Glucose Urine UA Negative (Normal); Ketones Urine Negative (Negative); Leukocyte Esterase Urine 2+ (Negative); Nitrate Urine Negative (Negative); Protein Urine Negative (Negative); Specific Gravity, Urine 1.021 (1.005-1.030); Urine Appearance Clear (CLEAR); Urine Color Yellow (Yellow)
[2024-09-11 13:46] LABS: Add Urine Microscopic? YES; Bacteria Urine 1+ /hpf; Hyaline Casts Urine 4.11 /lpf; RBC Urine 0-2 /hpf (0-2)
[2024-09-11] MEDS: sodium chloride 0.9% 1,000 ML 999 ML IV (13:50)
[2024-09-11] MEDS: cefTRIAXone 2,000 mg SDV 2000 MG IVP (15:18)
== END 2024-09-11 15:49 | disposition home or self-care (01) ==
PROVIDERS: Emergency Provider Nurse Practitioner; PCP Family Medicine
DX: O23.42 Unspecified infection of urinary tract in pregnancy, second trimester (principal); N39.0 Urinary tract infection, site not specified; Z3A.19 19 weeks gestation of pregnancy; M54.50 Low back pain, unspecified
CPT/HCPCS: 81001; 85025; 87086; 96374; 99284; J0696; J7030

== ENCOUNTER 2024-10-23 15:52 | Outpatient (CLI) | payer MEDICAID, SELFPAY ==
[2024-10-23 15:52] VITALS: BMI 26.7
[2024-10-23 16:13] VITALS: BP 123/74; PULSE 91
[2024-10-23 16:27] VITALS: BP 116/67; PULSE 90
[2024-10-23 16:35] LABS: Bilirubin Urine Negative (Negative); Blood Urine Negative (Negative); Glucose Urine UA Negative (Normal); Ketones Urine Negative (Negative); Leukocyte Esterase Urine 2+ (Negative); Nitrate Urine Negative (Negative); Protein Urine Negative (Negative); Specific Gravity, Urine 1.003 (1.005-1.030); Urine Appearance Clear (CLEAR); Urine Color Yellow (Yellow); Urobilinogen Urine 0.2 mg/dL (Negative); pH Urine 7.5 (5-7)
[2024-10-23 16:41] LABS: Bacteria Urine None Seen /hpf; Hyaline Casts Urine 0-4 /lpf; RBC Urine 0-2 /hpf (0-2); Squamous Epithelial Cell Urine 0-5 /hpf (0-5)
[2024-10-23 16:44] VITALS: BP 119/68; PULSE 83
[2024-10-23 16:52] LABS: UA Slide Review UA Slide Review Perf
[2024-10-23 16:56] LABS: Add Urine Culture? No
[2024-10-23 16:57] VITALS: BP 113/64; PULSE 79
[2024-10-23 17:23] VITALS: BP 114/75; PULSE 87
[2024-10-23 17:43] VITALS: BP 114/78; PULSE 87; RESP 16; O2SAT 98
== END 2024-10-23 17:43 | disposition home or self-care (01) ==
LOC: OPOB 15:57 → OBGYN 15:57
PROVIDERS: PCP Family Medicine; Visit Provider Obstetrics & Gynecology
DX: O26.899 Other specified pregnancy related conditions, unspecified trimester (principal); Z3A.00 Weeks of gestation of pregnancy not specified; N89.8 Other specified noninflammatory disorders of vagina
CPT/HCPCS: 81001; 99211

== ENCOUNTER 2024-10-29 22:20 | Outpatient (CLI) | payer MEDICAID, SELFPAY ==
[2024-10-29 22:59] VITALS: BP 118/74; PULSE 86
[2024-10-29 23:28] VITALS: BP 118/74; PULSE 86; RESP 17; TEMP 35.9; TEMP 36.7; O2SAT 99
== END 2024-10-29 23:31 | disposition home or self-care (01) ==
LOC: OPOB 22:33 → OBGYN 22:34
PROVIDERS: PCP Family Medicine; Visit Provider Family Medicine
DX: O26.899 Other specified pregnancy related conditions, unspecified trimester (principal); Z3A.00 Weeks of gestation of pregnancy not specified; R10.9 Unspecified abdominal pain
CPT/HCPCS: 99211

== ENCOUNTER 2024-11-07 14:13 | Outpatient (CLI) | payer MEDICAID, SELFPAY ==
[2024-11-07 14:13] VITALS: BMI 27.1
[2024-11-07 14:29] VITALS: BP 122/80; PULSE 82
[2024-11-07 14:44] VITALS: BP 115/71; PULSE 77
[2024-11-07 14:59] VITALS: BP 118/74; PULSE 71
== END 2024-11-07 15:00 | disposition home or self-care (01) ==
LOC: OPOB 14:14 → OBGYN 14:14
PROVIDERS: PCP Family Medicine; Visit Provider Family Medicine
DX: O26.899 Other specified pregnancy related conditions, unspecified trimester (principal); Z3A.00 Weeks of gestation of pregnancy not specified; R07.9 Chest pain, unspecified; R06.02 Shortness of breath
CPT/HCPCS: 99211

== ENCOUNTER 2024-11-07 15:14 | Emergency (ER) | payer MEDICAID, SELFPAY ==
[2024-11-07 15:29] VITALS: BP 144/90; PULSE 70; RESP 16; TEMP 36.4; O2SAT 99
--- NOTE | 2024-11-07 15:34 | ECG_ITS ---
[facility] Test Date: 2024-11-07 Pat Name: Pauly Batres Department: Room: Gender: Female Citizenship Teacher: : 1990 Requested By: Homero Tripp Order Number: [id number] Ari MD: Marcos Solis M.D. Measurements Intervals [place] Rate: 77 P: 61 CO: 139 QRS: 68 QRSD: 94 T: 28 QT: 377 QTc: 428 Interpretive Statements SINUS RHYTHM Compared to ECG 05/29/2024 17:14:07 No significant changes Electronically Signed On 11-07-2024 17:44:12 CDT by Marcos Solis M.D. [id number]
--- NOTE | 2024-11-07 15:53 | ED_ITS ---
HPI - Chest Pain 2 General: Chief Complaint: Chest Pain Stated Complaint: regla,cp, was in ob Time Seen by Provider: 11/07/24 15:17 History of Present Illness: 34-year-old female presents with left si de chest pain that sharp stabbing, she reports been going on and off for about a month and a half. Patient denies any significant shortness of breath but does have some mild shortness of breath. Patient was seen in OB and was sent over here for further evaluation. Patient reports that she is concerned because her mom has a history of congestive heart failure and blood clots. Associated symptoms: Reports dyspnea (Minimal); Deny fever(s) Related Data Home Medications ?Medication ?Instructions ?Recorded ?Confirmed albuterol sulfate 90 mcg/actuation 2 puff inhalation Q 4H PRN 09/11/24 11/07/24 aerosol inhaler (Ventolin HFA) Shortness Of Breath Or Wheezing bupropion HCl 150 mg 24 hr tablet, 150 mg PO QAM 09/1111/07/24 extended release progesterone micronized 200 mg 200 mg vaginal DAILY 11/07/24 capsule vit no.95-ferrous 1 tab PO DAILY 10/30/24 fumarate 28 mg-folic acid 800 mcg tablet () Allergies Allergy/AdvReac Type Severity Reaction Status Date / Time sulfadiazine Allergy Mild Nausea Verified 10/30/24 00:07 aspirin Allergy Unknown Unknown Verified 10/30/24 00:07 Penicillins Allergy Unknown Unknown Verified 10/30/24 00:07 Review of Systems 2 Const: Denies: fever(s) or chills Card: Reports: chest pain Resp: Reports: dyspnea (Minimal) Skin/Breast: Denies: rash or pruritus Neuro: Denies: headache(s) Psych: Denies: anxiety or depression PFSH ED 2 PFSH: Medical History Acute bronchitis due to Rhinovirus No pertinent past medical history neghx: htn,dm,thyroid,dvt/pe PCP: Dr. Alba Generalized abdominal pain Anxiety with depression Surgical History H/O LEEP x2 at ages 15 and 16 years old Family History Grandmother Breast cancer Maternal grandmother--dx'd in her 60s Ovarian cancer Maternal grandmother---dx age unknown Son Diabetes Type 1 Family history of thyroid problem Mother Hypertension Hyperlipidemia Heart disease Father Family history of thyroid problem Denies family history of Colon cancer Uterine cancer Stroke Social History Smoking and tobacco/nicotine status: never used tobacco/nicotine Physical Exam 2 Const: COMMON NORMALS: no acute distress, patient oriented x3 and alert Resp: COMMON NORMALS: normal respiratory effort and clear to auscultation bilaterally AUSCULTATION: clear to auscultation bilaterally Cardio: COMMON NORMALS: regular rate and regular rhythm RATE: regular rate RHYTHM: regular rhythm Neuro: COMMON NORMALS: patient oriented x3, moves all extremities and no focal motor deficits SENSORIUM/ORIENTATION: Yes alert Psych: COMMON NORMALS: mental status grossly normal, cooperative and normal affect Course 2 Vital Signs: Vital signs: Vital Signs Temperature 97.5 F L 11/07/24 15:29 Pulse Rate 77 11/07/24 17:43 Respiratory Rate 16 11/07/24 15:29 Blood Pressure 119/82 11/07/24 17:43 Pulse Oximetry 98 11/07/24 17:43 Oxygen Delivery Me thod Room Air 11/07/24 15:29 MDM - Chest Pain Medical Decision Making Patient labs were ordered and reviewed. Patient has low risk for DVT based on modified years criteria. She does have however a slight elevation of her D- dimer. When adjusted for her it is minimally elevated. We discussed risk benefits of a CTA to rule out a PE. At this time she would like to decline and will return. Her vital signs are not indicative of a PE and is low risk. Patient thinks that it might be reflux that she has had that in the past that seems to become a more recurrent. Recommended she start famotidine twice daily. She was recommended to take aspirin daily by her skip tracer throughout her but has not was wondering if she is to start that. I recommend she follow-up with her OB as there are some risk of aspirin while . Patient is stable and is ready be discharged home. She will return with any concerns. Lab Data 11/07/24 16:21 11/07/24 16:21 Laboratory Results WBC 10.85 10^3/uL (3.29-11.43) 11/07/24 16:21 RBC 3.62 10^6/uL (3.85-5.65) L 11/07/24 16:21 Hgb 11.50 g/dL (11.27-16.99) 11/07/24 16:21 Hct 33.7 % (36-47) L 11/07/24 16:21 MCV 93.1 fl (85-98) 11/07/24 16:21 MCH 31.8 pg (27-33) 11/07/24 16:21 MCHC 34.1 g/dL (30-55) 11/07/24 16:21 RDW 13.2 % (12.1-15.1) 11/07/24 16:21 Plt Count 220 10^3/cmm (157-399) 11/07/24 16:21 MPV 10.3 fL (7.4-10.4) 11/07/24 16:21 Neut % (Auto) 79.9 % 11/07/24 16:21 Lymph % (Auto) 12.9 % 11/07/24 16:21 [place] % (Auto) 5.6 % 11/07/24 16:21 Eos % (Auto) 0.6 % 11/07/24 16:21 Baso % (Auto) 0.3 % 11/07/24 16:21 Neut # (Auto) 8.67 10^3/uL (1.8-7.7) H 11/07/24 16:21 Lymph # (Auto) 1.4 10^3/uL (0.8-4.8) 11/07/24 16:21 [place] # (Auto) 0.6 10^3/uL (0.2-0.9) 11/07/24 16:21 Eos # (Auto) 0.1 10^3/uL (0.0-0.8) 11/07/24 16:21 Baso # (Auto) 0.0 10^3/uL (0.0-0.1) 11/07/24 16:21 Nucleated RBC % (auto) 0 % 11/07/24 16:21 Nucleated RBCs # 0.0 /100WBC 11/07/24 16:21 D-Dimer 1.59 ug/mLFEU (0-0.59) H 11/07/24 16:21 Sodium 138 mmol/L (136-145) 11/07/24 16:21 Potassium 4.0 mmol/L (3.5-5.1) 11/07/24 16:21 Chloride 106 mmol/L (98-107) 11/07/24 16:21 Carbon Dioxide 18 mmol/L (22-29) L 11/07/24 16:21 Anion Gap 18.0 (5-19) 11/07/24 16:21 BUN 5 mg/dL (6-20) L 11/07/24 16:21 Creatinine 0.4 mg/dL (0.5-0.9) L 11/07/24 16:21 GFR Calculation 181.6 mL/min (90-130) H 11/07/24 16:21 Glucose 79 mg/dL (65-115) 11/07/24 16:21 Calculated Osmolality 282 mOsm/kg (285-295) L 11/07/24 16:21 Calcium 8.6 mg/dL (8.5-10.5) 11/07/24 16:21 Total Bilirubin 0.2 mg/dL (0.15-1.2) 11/07/24 16:21 AST 6 U/L (0-32) 11/07/24 16:21 ALT 13 U/L (0-33) 11/07/24 16:21 Alkaline Phosphatase 82 U/L (35-105) 11/07/24 16:21 Troponin T Baseline < 6 ng/L (0-10) 11/07/24 16:21 NT-Pro-B Natriuret Pep < 36 pg/mL (0-125) 11/07/24 16:21 Total Protein 5.9 g/dL (6.6-8.7) L 11/07/24 16:21 Albumin 3.4 g/dL (3.5-5.2) L 11/07/24 16:21 Globulin 2.5 g/dL (1.3-4.6) 11/07/24 16:21 No radiology studies performed this visit Discharge Plan Discharge Patient Disposition: Home Clinical Impression: Chest pain during , Acid reflux disease Condition: Stable Prescriptions: No Action progesterone micronized 200 mg capsule 200 mg vaginal DAILY albuterol sulfate [Ventolin HFA] 90 mcg/actuation HFA aerosol inhaler 2 puff INHALATION Q4H PRN (Reason: Shortness Of Breath Or Wheezing) bupropion HCl 150 mg tablet extended release 24 hr 150 mg PO QAM PNV cmb#95-ferrous fumarate-FA [] 28 mg iron- 800 mcg Tablet 1 tab PO DAILY Discharge Orders: Discharge ED (Routine); Ordered 11/07/24 Ordered By: Homero Tripp Referrals: Kwan Ambriz MD [Primary Care Provider, [facility]] Discharge Diet: Usual diet Discharge Activity: Resume usual activity Patient Instructions: Chest Pain (ED), GERD (Gastroesophageal Reflux Disease) (DC), Noncardiac Chest Pain (ED), at 27 to 30 Weeks (ED), Opioid Safety, Pain Management Activity Restrictions/Additional Instructions: Please start famotidine 20 mg twice daily as needed for reflux. You may also use Tums or [id number] Jessica-Antoine. Please follow-up with your skip tracer to discuss starting aspirin daily. If you do start please make sure to 81 mg but not a full 325 mg. Return to the ER with any concerns. Print Language: British Coding Level of Care Code ED Security Infrastructure Engineer for Kwame Herrera
[2024-11-07 16:42] LABS: Basophils % 0.3 %; Eosinophils # 0.1 10^3/uL (0.0-0.8); Eosinophils % 0.6 %; Hematocrit 33.7 % (36-47); Lymphocytes # 1.4 10^3/uL (0.8-4.8); Lymphocytes % 12.9 %; Mean Corpuscular HGB Conc 34.1 g/dL (30-55); Mean Corpuscular Hemoglobin 31.8 pg (27-33); Mean Corpuscular Volume 93.1 fl (85-98); Mean Platelet Volume 10.3 fL (7.4-10.4); Monocytes # 0.6 10^3/uL (0.2-0.9); Monocytes % 5.6 %; Neutrophils # 8.67 10^3/uL (1.8-7.7); Neutrophils % 79.9 %; Nucleated Red Blood Cells % 0 %; Platelet Count 220 10^3/cmm (157-399); Red Blood Count 3.62 10^6/uL (3.85-5.65); Red Cell Distribution Width 13.2 % (12.1-15.1); White Blood Count 10.85 10^3/uL (3.29-11.43)
[2024-11-07 16:53] LABS: D Dimer 1.59 ug/mLFEU (0-0.59)
[2024-11-07 17:10] LABS: Troponin(5th) Baseline < 6 ng/L (0-10)
[2024-11-07 17:27] LABS: Alanine Aminotransferase 13 U/L (0-33); Albumin Level 3.4 g/dL (3.5-5.2); Alkaline Phosphatase 82 U/L (35-105); Aspartate Amino Transferase 6 U/L (0-32); Blood Urea Nitrogen 5 mg/dL (6-20); Calcium 8.6 mg/dL (8.5-10.5); Carbon Dioxide 18 mmol/L (22-29); Chloride 106 mmol/L (98-107); Creatinine Clr Calc Pharmacy 186.0478; Globulin 2.5 g/dL (1.3-4.6); Glomerular Filtration Rate 181.6 mL/min (90-130); Glucose 79 mg/dL (65-115); NT Pro B Type Natriuretic Pept < 36 pg/mL (0-125); Osmolality Calculated 282 mOsm/kg (285-295); Sodium 138 mmol/L (136-145); Total Bilirubin 0.2 mg/dL (0.15-1.2); Total Protein 5.9 g/dL (6.6-8.7)
[2024-11-07 17:43] VITALS: BP 119/82; PULSE 77; O2SAT 98
== END 2024-11-07 18:08 | disposition home or self-care (01) ==
PROVIDERS: Emergency Provider Student in an Organized Health Care Education/Training Program; PCP Family Medicine
DX: O26.899 Other specified pregnancy related conditions, unspecified trimester (principal); R07.9 Chest pain, unspecified; K21.9 Gastro-esophageal reflux disease without esophagitis
CPT/HCPCS: 36415; 80053; 83880; 84484; 85025; 85378; 93005; 99284

== ENCOUNTER 2024-11-17 20:57 | Outpatient (CLI) | payer MEDICAID, SELFPAY ==
[2024-11-17 21:12] VITALS: BP 125/79; PULSE 73
[2024-11-17 21:18] VITALS: RESP 18
[2024-11-17 21:42] VITALS: BP 117/76; PULSE 59
[2024-11-17 21:52] VITALS: RESP 16
[2024-11-17 21:57] VITALS: BP 110/78; PULSE 71
[2024-11-17 22:42] VITALS: BP 129/80; PULSE 90
[2024-11-17] MEDS: betamethasone susp 6 mg/mL 5 mL 12 MG IM (22:48)
[2024-11-17] MEDS: NIFEdipine ER (24 hr) 30 mg Tablet PO (22:48)
--- NOTE | 2024-11-17 23:05 | PC.NURSE ---
Prescription called to [facility] and left on voicemail as pharmacy is currently closed. patient given dose of procardia 30mg xl prior to discharge and instructed to scrap picker prescription in the morning to take next dose.
== END 2024-11-17 23:06 | disposition home or self-care (01) ==
LOC: OPOB 21:00 → OBGYN 21:01
PROVIDERS: PCP Family Medicine; Visit Provider Obstetrics & Gynecology
DX: O36.8190 Decreased fetal movements, unspecified trimester, not applicable or unspecified (principal); Z3A.00 Weeks of gestation of pregnancy not specified; R10.9 Unspecified abdominal pain
CPT/HCPCS: 59025; 96372; 99211; J0702; J9999

== ENCOUNTER 2024-11-21 16:35 | Outpatient (CLI) | payer BC, MEDICAID, SELFPAY ==
[2024-11-21] VITALS (7 sets, daily range): BP systolic 115–133; BP diastolic 72–77; PULSE 55–85; RESP 18; BMI 28.7
== END 2024-11-21 18:01 | disposition home or self-care (01) ==
LOC: OPOB 16:37 → OBGYN 16:38
PROVIDERS: Obstetrics & Gynecology; PCP Family Medicine; Visit Provider Obstetrics & Gynecology
DX: O26.899 Other specified pregnancy related conditions, unspecified trimester (principal); Z3A.00 Weeks of gestation of pregnancy not specified; N89.8 Other specified noninflammatory disorders of vagina
CPT/HCPCS: 59025; 83986; 84112; 99211

== ENCOUNTER 2024-12-19 11:35 | Outpatient (CLI) | payer BC, MEDICAID, SELFPAY ==
[2024-12-19] VITALS (29 sets, daily range): BP systolic 111–140; BP diastolic 57–111; PULSE 70–122; RESP 16–18; TEMP 36.2–36.9; O2SAT 97–100; BMI 29.3
[2024-12-19 12:11] LABS: Hematocrit 32.8 % (36-47); Hemoglobin 10.90 g/dL (11.27-16.99); Mean Corpuscular HGB Conc 33.2 g/dL (30-55); Mean Corpuscular Hemoglobin 29.3 pg (27-33); Mean Corpuscular Volume 88.2 fl (85-98); Nucleated Red Blood Cells % 0 %; Platelet Count 238 10^3/cmm (157-399); Red Blood Count 3.72 10^6/uL (3.85-5.65); White Blood Count 10.29 10^3/uL (3.29-11.43)
--- NOTE | 2024-12-19 12:13 | PM.OBTRLD ---
OB L&D Triage Visit Information: Date of evaluation: 12/19/24 Comments/Additional reason(s) for visit: The patient is a 34-year-old 2 para 0-1-0-1 at 32 weeks and 4 days per a first trimester ultrasound who presented to our facility today complaining of spontaneous rupture membranes and contractions. On examination she was noted to be grossly ruptured and nitrazine positive. Her cervical exam was noted to be 2 cm dilated, about 50% effaced, -3 station with a cervix that is moderately firm. Her membranes ruptured just prior to arrival at the hospital. She had been receiving care from Dr. Iain Vasquez in the [facility] at [place]. She received a set of 2 betamethasone shots at around 24 weeks. She also received another betamethasone shot approximately 1 month ago, with instructions to receive the second and her primary care provider's office. We do not have record as to whether she received her second betamethasone shot, and the patient does not remember. The patient has a history of labor and delivered her first baby over a decade ago at 29 weeks EGA. At that time, she arrived at the hospital complete with no previous warning of labor. Evaluation: monitor accelerations: Present 10x10 station: -3 Laboratory results: Laboratory Tests 12/19/24 11:54 WBC 10.29 RBC 3.72 L Hgb 10.90 L Hct 32.8 L MCV 88.2 MCH 29.3 MCHC 33.2 RDW 13.4 Plt Count 238 MPV 11.2 H Neut % (Auto) 73.7 Lymph % (Auto) 17.3 [place] % (Auto) 6.4 Eos % (Auto) 1.2 Baso % (Auto) 0.2 Neut # (Auto) 7.59 Lymph # (Auto) 1.8 [place] # (Auto) 0.7 Eos # (Auto) 0.1 Baso # (Auto) 0.0 Nucleated RBC % (a uto) 0 Nucleated RBCs # 0.0 Vital signs: Vital Signs - 24 hr 12/19/24 11:42 Pulse Rate 95 Blood Pressure 133/95 Final Diagnosis Final Diagnosis 1. premature rupture of membranes, unspecified duration to onset of labor: Plan: We will contact [facility] in [place] for transfer since the patient cervix is only 2 cm dilated and appears to be fairly stable. Her contractions are not painful at this time, and we have given the patient terbutaline to further minimize the impact of her contractions. We have started her on Ancef per GBS protocol. A GBS swab has been obtained. Status: Acute Qualifiers: PROM onset of labor timing: unspecified duration between rupture of membranes and onset of labor Qualified Code(s): O42.919 - premature rupture of membranes, unspecified as to length of time between rupture and onset of labor, unspecified trimester Code(s): O42.919 - premature rupture of membranes, unspecified as to length of time between rupture and onset of labor, unspecified trimester 2. 32 weeks gestation of : Status: Acute Code(s): Z3A.32 - 32 weeks gestation of Coding Level of Care Code Acute Code for Chg Fwd Diagnoses premature rupture of membranes, unspecified duration to onset of labor O42.919 PROM onset of labor timing: unspecified duration between rupture of membranes and onset of labor 32 weeks gestation of Z3A.32
[2024-12-19] MEDS: ceFAZolin 2,000 mg SDV 2000 MG IVP (12:22)
[2024-12-19 13:19] LABS: PCP Screen Urine Negative (Negative)
--- NOTE | 2024-12-19 13:28 | PC.NURSE ---
Discussed with patient that ambulance will be 1.5 hours. Patient states she does not want to be transferred via helicopter and stated she would like to leave AMA, patient was strongly encouraged against that and risks of delivering baby en route. Patient states she can't find a ride any ways but wouldn't be flying and would wait for ambulance.
== END 2024-12-19 15:21 | disposition home or self-care (01) ==
LOC: OBGYN 15:23 → OPOB 12-20 05:26
PROVIDERS: PCP Family Medicine; Visit Provider Family Medicine
DX: O26.899 Other specified pregnancy related conditions, unspecified trimester (principal); Z3A.00 Weeks of gestation of pregnancy not specified; N89.8 Other specified noninflammatory disorders of vagina
CPT/HCPCS: 59025; 80306; 83986; 85025; 86850; 86900; 87081; 96372; 99211; J0690; J3105; J7121; J9999

== ENCOUNTER 2025-05-05 16:39 | Outpatient (CLI) | payer BC, MEDICAID, SELFPAY ==
--- NOTE | 2025-05-05 16:46 | XRR_ITS ---
PROCEDURE INFORMATION: Exam: XR Lumbosacral Spine Exam date and time: 05/05/2025 4:52 PM Age: 35 years old Clinical indication: Low back pain; Additional info: Acute right sided low back pain without sciatica TECHNIQUE: Imaging protocol: Radiologic exam of the lumbosacral spine. Views: 2 or 3 views. COMPARISON: CR (PELVIS, ) 10/09/2022 6:55 PM FINDINGS: Bones/joints: Normal. No acute fracture. Normal alignment. Soft tissues: Unremarkable. Gastrointestinal tract: Moderate to severe constipation. XR/XR lumbar spine 2-3V* [id number] IMPRESSION: Moderate to severe constipation.
== END 2025-05-05 16:40 | disposition home or self-care (01) ==
LOC: RAD 16:42
PROVIDERS: PCP Family Medicine; Visit Provider Family Medicine
DX: M54.50 Low back pain, unspecified (principal); K59.00 Constipation, unspecified
CPT/HCPCS: 72100